=== PATIENT | female | born 1965 | race Caucasian/White ===

== ENCOUNTER 2022-02-11 13:22 | Inpatient (IN) | payer BC ==
[2022-02-11 13:40] LABS: Glucose,Whole Blood 49 mg/dL (75-99)
[2022-02-11] MEDS: DEXTROSE 50% SYRINGE 50 ML IVP STA ×2 (13:40→16:10)
[2022-02-11 14:18] LABS: Basophils % (A) 0 %; Eosinophils # (A) 0.1 k/uL (0-0.7); Eosinophils % (A) 1 %; HCT 41.3 % (34.0-46.0); HGB 11.8 gm/dL (11.4-16.0); Hypochromasia Marked; Lymphocytes # (A) 1.1 k/uL (1.0-4.8); Lymphocytes % (A) 10 %; MCH 28.7 pg (25.0-35.0); MCHC 28.5 g/dL (31.0-37.0); MCV 100.7 fL (80.0-100.0); Macrocytosis Slight; Mean Platelet Volume 7.6; Monocytes # (A) 0.6 k/uL (0-1.0); Monocytes % (A) 6 %; Neutrophils # (A) 8.8 k/uL (1.3-7.7); Neutrophils % (A) 83 %; Platelet Count 296 k/uL (150-450); RBC 4.11 m/uL (3.80-5.40); RDW 13.6 % (11.5-15.5); WBC 10.7 k/uL (3.8-10.6)
[2022-02-11 14:34] LABS: Albumin 3.9 g/dL (3.5-5.0); Calcium 8.8 mg/dL (8.4-10.2); Total Bilirubin 0.3 mg/dL (0.2-1.3); Total Protein 6.9 g/dL (6.3-8.2)
[2022-02-11 14:37] LABS: INR 0.9 (<1.2); Partial Thromboplastin Time 22.1 sec (22.0-30.0); Prothrombin Time 10.2 sec (9.0-12.0)
[2022-02-11 15:04] LABS: Potassium 6.4 mmol/L (3.5-5.1)
[2022-02-11 15:11] LABS: Glucose,Whole Blood 50 mg/dL (75-99)
[2022-02-11] MEDS ORDERED: NALOXONE 0.4 MG/ML 1 ML VIAL IV PRN (15:56)
--- NOTE | 2022-02-11 16:14 | CT ---
EXAMINATION TYPE: CT abdomen pelvis wo con DATE OF EXAM: 02/11/2022 COMPARISON: None available HISTORY: Acute kidney failure. CT DLP: 3223 mGycm Automated exposure control for dose reduction was used. TECHNIQUE: Helical acquisition of images was performed from the lung bases through the pelvis. FINDINGS: Artifactual images. LUNG BASES: Coronary arterial calcifications. LIVER/GB: Thick sludge versus calculi within the gallbladder. No definite hepatic focal lesion. PANCREAS: No significant abnormality is seen. SPLEEN: No significant abnormality is seen. ADRENALS: No significant abnormality is seen. KIDNEYS: Markedly atrophic left kidney. Heterogeneous area with central hypodensity seen at the poste rior aspect of the right kidney measuring 6 x 7 cm. Surrounding fat stranding and inflammatory change s. The lesion is incompletely characterized by this nonenhanced CT scan could represent an exophytic renal mass like renal cell carcinoma however associated infection or other abnormality like hemorrhag e or complicated cyst cannot be excluded. Recommend further enhanced CT or ultrasound assessment. 3 m m nonobstructing calculus at the lower pole of right kidney. FREE AIR: No free air is visualized RETROPERITONEAL ADENOPATHY: None visualized REPRODUCTIVE ORGANS: No gross uterine or adnexal mass. URINARY BLADDER: Collapsed over a Ventura catheter. PELVIC ADENOPATHY: No pathologically enlarged pelvic lymph nodes. OSSEOUS STRUCTURES: Destructive lytic lesion is seen involving the left ischial and iliac bones as w ell as the left acetabulum which could be primary or metastatic bone lesion. Degenerative changes of the lumbar spine and sacroiliac joints. BOWEL: No bowel obstruction. Fecal loading of the colon. Normal appendix. OTHER: Arterial atherosclerotic calcifications. No sizable ascites. IMPRESSION: Markedly atrophic left kidney. Suspicious lesion at the posterior aspect of the right kidney measurin g up to 7 mm with surrounding inflammatory changes, incompletely characterized by this unenhanced CT scan and could represent malignant lesion like RCC however other lesion or associated infection canno t be excluded. Recommend clinical correlation and further enhanced CT scan or ultrasound assessment. Urology consultation should be also considered. Left pelvic bone lytic destructive lesion as detailed above which could be a primary or metastatic aguilar ne lesion. Recommend correlation with bone scan results. Other incidental findings as described above .
[2022-02-11] MEDS: DEXTROSE 5% IN WATER 1,000 ML with SODIUM BICARB (1 MEQ/ML) 150 ML IV SCH (16:15)
[2022-02-11] MEDS ORDERED: CALCIUM GLUCONATE IN NACL 1 GM in SALINE 1 100ML.BAG IVPB ONE (16:17)
[2022-02-11] MEDS ORDERED: SODIUM BICARB 8.4% 50 ML SYR (1 MEQ/ML) IV STA (16:17)
[2022-02-11 16:19] LABS: Glucose,Whole Blood 32 mg/dL (75-99)
[2022-02-11] MEDS ORDERED: SODIUM CHLORIDE 0.9% INHALATION STA ×2 (16:19)
[2022-02-11] MEDS ORDERED: ALBUTEROL INHALATION STA ×2 (16:19)
[2022-02-11 16:30] LABS: Glucose,Whole Blood 95 mg/dL (75-99)
[2022-02-11 17:08] LABS: Glucose,Whole Blood 64 mg/dL (75-99)
[2022-02-11] MEDS ORDERED: LIDOCAINE 1% INJ 10MG/ML (30 ML VIAL-PF) SQ ONE (17:40)
--- NOTE | 2022-02-11 17:40 | ED ---
General Adult HPI - General Source: patient, EMS Mode of arrival: EMS <Leonela Fink - Last Filed: 02/11/22 18:54> <So Cruz - Last Filed: 02/12/22 23:24> - General Chief complaint: Recheck/Abnormal Lab/Rx Stated complaint: kidney failure Time Seen by Provider: 02/11/22 13:25 - History of Present Illness Initial comments: Patient is a 56-year-old female was transferred from [facility] for acute renal failure with and hyperkalemia. She was having hypoglycemia consequently she only received Calcium, albuterol and bicarbonate for her hyperkalemia. She was started on D5 4 5 at the facility as well. Her labs were n ot repeated prior to transfer. She does have good urine output. She denies any past medical history of any renal disease however she does have hypertension and diabetes in which she is on oral medications for and did take her medications today. She denies any known recent infections reports that normally she is up and ambulatory but she has had increased weakness recently and has been less mobile. She denies any recent infections, family history of renal disease, abdominal pain nausea or vomiting. (Leonela Fink) - Related Data Home Medications Medication Instructions Recorded Confirmed glipiZIDE [Glucotrol] 10 mg PO AC-BID 08/25/15 02/11/22 metFORMIN HCL [Glucophage] 1,000 mg PO BID 08/25/15 02/11/22 Cyclobenzaprine [Flexeril] 10 mg PO TID PRN 02/11/22 02/11/22 Diclofenac Sodium [Voltaren] 75 mg PO BID 02/11/22 02/11/22 Gabapentin 300 mg PO BID 02/11/22 02/11/22 HYDROcodone/APAP 5-325MG [[place] 1 tab PO Q6H PRN 02/11/22 02/11/22 5-325] Lisinopril-Hctz 10-12.5 mg 1 tab PO BID 02/11/22 02/11/22 [Zestoretic 10-12.5] Multivitamins, Thera [Multivitamin 1 tab PO DAILY 02/11/22 02/11/22 (formulary)] Pioglitazone [Actos] 30 mg PO DAILY 02/11/22 02/11/22 Spironolactone 50 mg PO DAILY 02/11/22 02/11/22 Previous Rx's Medication Instructions Recorded Aspirin 81 mg PO DAILY #30 chewable 08/27/15 Atorvastatin [Lipitor] 80 mg PO HS #30 tab 08/27/15 Allergies Allergy/AdvReac Type Severity Reaction Status Date / Time ibuprofen Allergy Rash/Hives Verified 02/11/22 14:47 Review of Systems ROS Other: All systems not noted in ROS Statement are negative. <Leonela Fink - Last Filed: 02/11/22 18:54> ROS Other: All systems not noted in ROS Statement are negative. <So Cruz - Last Filed: 02/12/22 23:24> ROS Statement: Those systems with pertinent positive or pertinent negative responses have been documented in the HPI. Past Medical History Past Medical History: Diabetes Mellitus, Hypertension History of Any Multi-Drug Resistant Organisms: None Reported Past Surgical History: Orthopedic Surgery Additional Past Surgical History / Comment(s): bone spur right heel surgery, right meniscus surgery Past Anesthesia/Blood Transfusion Reactions: No Reported Reaction Past Psychological History: No Psychological Hx Reported Smoking Status: Former smoker Past Alcohol Use History: None Reported Past Drug Use History: None Reported - Past Family History Mother Family Medical History: Hypertension Father Additional Family Medical History / Comment(s): no history reported, in car accident <Leonela Fink - Last Filed: 02/11/22 18:54> General Exam General appearance: alert, obese, other (drowsy at times) Head exam: Present: atraumatic, normocephalic, normal inspection Eye exam: Present: normal appearance, PERRL, EOMI. Absent: scleral icterus, conjunctival injection, periorbital swelling ENT exam: Present: normal exam, mucous membranes moist Neck exam: Present: normal inspection. Absent: tenderness, meningismus, lymphadenopathy Respiratory exam: Present: normal lung sounds bilaterally. Absent: respiratory distress, wheezes, rales, rhonchi, stridor Cardiovascular Exam: Present: regular rate, normal rhythm, normal heart sounds. Absent: systolic murmur, diastolic murmur, rubs, gallop, clicks GI/Abdominal exam: Present: soft, normal bowel sounds. Absent: distended, tenderness, guarding, rebound, rigid External exam: Present: other (Ventura catheter intact with clear yellow urine a dequate output noted) Extremities exam: Absent: pedal edema, joint swelling Neurological exam: Present: alert, oriented X3, CN II-XII intact Psychiatric exam: Present: normal affect, normal mood Skin exam: Present: other (Excoriation noted under pannus) <Leonela Fink - Last Filed: 02/11/22 18:54> Course Vital Signs 02/11/22 02/11/22 02/11/22 13:23 15:08 16:16 Temperature 97.9 F Pulse Rate 105 H 101 H 88 Respiratory 18 18 18 Rate Blood Pressure 154/65 131/67 126/67 Blood Pressure [Left Arm] O2 Sat by Pulse 98 95 Oximetry 02/11/22 02/11/22 02/11/22 16:30 16:32 16:42 Temperature Pulse Rate 98 99 100 Respiratory 18 10 L Rate Blood Pressure 127/60 Blood Pressure [Left Arm] O2 Sat by Pulse 100 Oximetry 02/11/22 02/11/22 02/11/22 16:44 17:00 17:30 Temperature Pulse Rate 101 H 102 H Respiratory 18 18 Rate Blood Pressure 104/86 104/86 145/67 Blood Pressure [Left Arm] O2 Sat by Pulse 99 98 Oximetry 02/11/22 02/11/22 02/11/22 18:17 18:44 19:00 Temperature 97.7 F Pulse Rate 106 H Respiratory 18 56 H 59 H Rate Blood Pressure 137/47 137/75 Blood Pressure 137/47 [Left Arm] O2 Sat by Pulse 96 99 Oximetry 02/11/22 02/11/22 19:30 20:00 Temperature 97.7 F Pulse Rate 100 101 H Respiratory 16 14 Rate Blood Pressure 151/72 147/65 Blood Pressure [Left Arm] O2 Sat by Pulse 94 L 95 Oximetry Procedures - [place] Protocol (Time Out) Patient Identification (2 identifiers required): Chart, Verbal, Arm Band, Birthdate 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 Attending Dr. Moreira along with nephology; nephrology to dialyze pateint. Dr. Escobar ICU shift supervisor rn advised of plan for admission to ICU with urgent catheter insertion by Dr. Toro for dialysis due to persistent hyperkalemia and uremia. Hypoglycemia recurrent with dextrose 50 given every 30 minutes as needed for blood sugars less than 50. EKG reviewed without significant ST anomalies. Unclear etiology of acute renal failure as notes nonalcohol. Due to body habitus computed tomography scan of the abdomen and pelvis ordered for evaluation of kidneys. (Leonela Fink) I spoke with Dr. Wu who accepted the patient into the ICU (So Cruz) - Lab Data Lab Results 02/11/22 02/11/22 02/11/22 Range/Units 13:28 13:48 13:48 WBC 10.7 H (3.8-10.6) k/uL RBC 4.11 (3.80-5.40) m/uL Hgb 11.8 (11.4-16.0) gm/dL Hct 41.3 (34.0-46.0) % MCV 100.7 H (80.0-100.0) fL MCH 28.7 (25.0-35.0) pg MCHC 28.5 L (31.0-37.0) g/dL RDW 13.6 (11.5-15.5) % Plt Count 296 (150-450) k/uL MPV 7.6 Neutrophils % 83 % Lymphocytes % 10 % Monocytes % 6 % Eosinophils % 1 % Basophils % 0 % Neutrophils # 8.8 H (1.3-7.7) k/uL Lymphocytes # 1.1 (1.0-4.8) k/uL Monocytes # 0.6 (0-1.0) k/uL Eosinophils # 0.1 (0-0.7) k/uL Basophils # 0.0 (0-0.2) k/uL Hypochromasia Marked Macrocytosis Slight PT 10.2 (9.0-12.0) sec INR 0.9 (<1.2) APTT 22.1 (22.0-30.0) sec Sodium (137-145) mmol/L Potassium (3.5-5.1) mmol/L Chloride (98-107) mmol/L Carbon Dioxide (22-30) mmol/L Anion Gap mmol/L BUN (7-17) mg/dL Creatinine (0.52-1.04) mg/dL Est GFR (CKD-EPI)AfAm (>60 ml/min/1.73 sqM) Est GFR (CKD-EPI)NonAf (>60 ml/min/1.73 sqM) Glucose (74-99) mg/dL POC Glucose (mg/dL) 49 L (75-99) mg/dL POC Glu Wiping Cloth Cutter ID BernardoEdmund Lactic Ac Sepsis Rflx Plasma Lactic Acid Saad (0.7-2.0) mmol/L Calcium (8.4-10.2) mg/dL Total Bilirubin (0.2-1.3) mg/dL AST (14-36) U/L ALT (4-34) U/L Alkaline Phosphatase (38-126) U/L Troponin I (0.000-0.034) ng/mL Total Protein (6.3-8.2) g/dL Albumin (3.5-5.0) g/dL 02/11/22 02/11/22 02/11/22 Range/Units 13:48 13:48 13:48 WBC (3.8-10.6) k/uL RBC (3.80-5.40) m/uL Hgb (11.4-16.0) gm/dL Hct (34.0-46.0) % MCV (80.0-100.0) fL MCH (25.0-35.0) pg MCHC (31.0-37.0) g/dL RDW (11.5-15.5) % Plt Count (150-450) k/uL MPV Neutrophils % % Lymphocytes % % Monocytes % % Eosinophils % % Basophils % % Neutrophils # (1.3-7.7) k/uL Lymphocytes # (1.0-4.8) k/uL Monocytes # (0-1.0) k/uL Eosinophils # (0-0.7) k/uL Basophils # (0-0.2) k/uL Hypochromasia Macrocytosis PT (9.0-12.0) sec INR (<1.2) APTT (22.0-30.0) sec Sodium 139 (137-145) mmol/L Potassium 6.4 H* (3.5-5.1) mmol/L Chloride 103 (98-107) mmol/L Carbon Dioxide 13 L (22-30) mmol/L Anion Gap 23 mmol/L BUN 93 H (7-17) mg/dL Creatinine 9.29 H* (0.52-1.04) mg/dL Est GFR (CKD-EPI)AfAm 5 (>60 ml/min/1.73 sqM) Est GFR (CKD-EPI)NonAf 4 (>60 ml/min/1.73 sqM) Glucose 42 L* (74-99) mg/dL POC Glucose (mg/dL) (75-99) mg/dL POC Glu Wiping Cloth Cutter ID Lactic Ac Sepsis Rflx Plasma Lactic Acid Saad 6.5 H* (0.7-2.0) mmol/L Calcium 8.8 (8.4-10.2) mg/dL Total Bilirubin 0.3 (0.2-1.3) mg/dL AST 48 H (14-36) U/L ALT 29 (4-34) U/L Alkaline Phosphatase 103 (38-126) U/L Troponin I 1.900 H* (0.000-0.034) ng/mL Total Protein 6.9 (6.3-8.2) g/dL Albumin 3.9 (3.5-5.0) g/dL 02/11/22 02/11/22 02/11/22 Range/Units 15:07 15:09 16:09 WBC (3.8-10.6) k/uL RBC (3.80-5.40) m/uL Hgb (11.4-16.0) gm/dL Hct (34.0-46.0) % MCV (80.0-100.0) fL MCH (25.0-35.0) pg MCHC (31.0-37.0) g/dL RDW (11.5-15.5) % Plt Count (150-450) k/uL MPV Neutrophils % % Lymphocytes % % Monocytes % % Eosinophils % % Basophils % % Neutrophils # (1.3-7.7) k/uL Lymphocytes # (1.0-4.8) k/uL Monocytes # (0-1.0) k/uL Eosinophils # (0-0.7) k/uL Basophils # (0-0.2) k/uL Hypochromasia Macrocytosis PT (9.0-12.0) sec INR (<1.2) APTT (22.0-30.0) sec Sodium (137-145) mmol/L Potassium (3.5-5.1) mmol/L Chloride (98-107) mmol/L Carbon Dioxide (22-30) mmol/L Anion Gap mmol/L BUN (7-17) mg/dL Creatinine (0.52-1.04) mg/dL Est GFR (CKD-EPI)AfAm (>60 ml/min/1.73 sqM) Est GFR (CKD-EPI)NonAf (>60 ml/min/1.73 sqM) Glucose (74-99) mg/dL POC Glucose (mg/dL) 50 L 32 L (75-99) mg/dL POC Glu Wiping Cloth Cutter [place] Ludwig Jackelyn Lactic Ac Sepsis Rflx Y Plasma Lactic Acid Saad (0.7-2.0) mmol/L Calcium (8.4-10.2) mg/dL Total Bilirubin (0.2-1.3) mg/dL AST (14-36) U/L ALT (4-34) U/L Alkaline Phosphatase (38-126) U/L Troponin I (0.000-0.034) ng/mL Total Protein (6.3-8.2) g/dL Albumin (3.5-5.0) g/dL - EKG Data EKG Comments: EKG shows sinus tachycardia possible right ventricular hypertrophy possible anterior infarct likely old ventricular rate 103 WA interval 136 ms QRS duration 121 ms QT/QTC 352/412 ms (Leonela Fink) Critical Care Time Critical Care Time: Yes <So Cruz - Last Filed: 02/12/22 23:24> Critical Care Time: 45 minutes (So Cruz) Disposition Time of Disposition: 18:59 <Leonela Fink - Last Filed: 02/11/22 18:54> <So Cruz - Last Filed: 02/12/22 23:24> Clinical Impression: Acute renal failure Disposition: ADMITTED IP TO THIS HOSP Condition: Serious
--- NOTE | 2022-02-11 18:04 | P.PCN ---
Description of Procedure: Preoperative diagnoses is acute chronic renal failure potassium of 6.4 urinary week 9.29 Postop same Ultrasound-guided today same dialysis catheter placement right femoral for the ultrasound-guided present but to the Spa [employer] right groin were prepped and draped applied in standard manner 1% lidocaine were infiltrated groin area ul trasound-guided micropuncture and the right femoral vein micropuncture guidewire was passed and dilator advanced on the top of guidewire in place a regular guidewire then replaced dilator on the top of guidewire then we placed 20 same dialysis catheter catheter on the top of guidewire guidewire was removed flushed with heparin saline and Hep-Lock secured with 3-0 nylon dressing applied systolic procedure well
--- NOTE | 2022-02-11 18:08 | P.GSCN ---
History of Present Illness History of present illness: 56-year-old white female patient came from we have discussed hospital she was hypoglycemic was given: IV and debridement is 93 treated in 19.29 potassium 6.4 sodium 139 was consulted for placement of urgent dialysis catheter Medical history history of diabetes superobesity Neck is supple no bruit appreciated Chest is clear good and both lungs Abdomen protuberant no peritoneal sign Femorals 1+ Plan is placement of a dialysis catheter risk and complication discussed Past Medical History Past Medical History: Diabetes Mellitus, Hypertension History of Any Multi-Drug Resistant Organisms: None Reported Past Surgical History: Orthopedic Surgery Additional Past Surgical History / Comment(s): bone spur right heel surgery, right meniscus surgery Past Anesthesia/Blood Transfusion Reactions: No Reported Reaction Past Psychological History: No Psychological Hx Reported Smoking Status: Former smoker Past Alcohol Use History: None Reported Past Drug Use History: None Reported - Past Family History Mother Family Medical History: Hypertension Father Additional Family Medical History / Comment(s): no history reported, in car accident Medications and Allergies Home Medications Medication Instructions Recorded Confirmed Type glipiZIDE [Glucotrol] 10 mg PO AC-BID 08/25/15 02/11/22 History metFORMIN HCL [Glucophage] 1,000 mg PO BID 08/25/15 02/11/22 History Aspirin 81 mg PO DAILY #30 chewable 08/27/15 02/11/22 Rx Atorvastatin [Lipitor] 80 mg PO HS #30 tab 08/27/15 02/11/22 Rx Cyclobenzaprine [Flexeril] 10 mg PO TID PRN 02/11/22 02/11/22 History Diclofenac Sodium [Voltaren] 75 mg PO BID 02/11/22 02/11/22 History Gabapentin 300 mg PO BID 02/11/22 02/11/22 History HYDROcodone/APAP 5-325MG [[place] 1 tab PO Q6H PRN 02/11/22 02/11/22 History 5-325] Lisinopril-Hctz 10-12.5 mg 1 tab PO BID 02/11/22 02/11/22 History [Zestoretic 10-12.5] Multivitamins, Thera [Multivitamin 1 tab PO DAILY 02/11/22 02/11/22 History (formulary)] Pioglitazone [Actos] 30 mg PO DAILY 02/11/22 02/11/22 History Spironolactone 50 mg PO DAILY 02/11/22 02/11/22 History Allergies Allergy/AdvReac Type Severity Reaction Status Date / Time ibuprofen Allergy Rash/Hives Verified 02/11/22 14:47 Surgical - Exam Vital Signs Temp Pulse Resp BP Pulse Ox 97.9 F 105 H 18 154/65 98 02/11/22 13:23 02/11/22 13:23 02/11/22 13:23 02/11/22 13:23 02/11/22 13:23 Results - Labs 02/11/22 13:48 02/11/22 13:48 Abnormal Lab Results - Last 24 Hours (Table) 02/11/22 02/11/22 02/11/22 Range/Units 13:28 13:48 13:48 WBC 10.7 H (3.8-10.6) k/uL MCV 100.7 H (80.0-100.0) fL MCHC 28.5 L (31.0-37.0) g/dL Neutrophils # 8.8 H (1.3-7.7) k/uL Potassium 6.4 H* (3.5-5.1) mmol/L Carbon Dioxide 13 L (22-30) mmol/L BUN 93 H (7-17) mg/dL Creatinine 9.29 H* (0.52-1.04) mg/dL Glucose 42 L* (74-99) mg/dL POC Glucose (mg/dL) 49 L (75-99) mg/dL Plasma Lactic Acid Saad (0.7-2.0) mmol/L AST 48 H (14-36) U/L Troponin I (0.000-0.034) ng/mL 02/11/22 02/11/22 02/11/22 Range/Units 13:48 13:48 15:07 WBC (3.8-10.6) k/uL MCV (80.0-100.0) fL MCHC (31.0-37.0) g/dL Neutrophils # (1.3-7.7) k/uL Potassium (3.5-5.1) mmol/L Carbon Dioxide (22-30) mmol/L BUN (7-17) mg/dL Creatinine (0.52-1.04) mg/dL Glucose (74-99) mg/dL POC Glucose (mg/dL) 50 L (75-99) mg/dL Plasma Lactic Acid Saad 6.5 H* (0.7-2.0) mmol/L AST (14-36) U/L Troponin I 1.900 H* (0.000-0.034) ng/mL 02/11/22 02/11/22 Range/Units 16:09 17:06 WBC (3.8-10.6) k/uL MCV (80.0-100.0) fL MCHC (31.0-37.0) g/dL Neutrophils # (1.3-7.7) k/uL Potassium (3.5-5.1) mmol/L Carbon Dioxide (22-30) mmol/L BUN (7-17) mg/dL Creatinine (0.52-1.04) mg/dL Glucose (74-99) mg/dL POC Glucose (mg/dL) 32 L 64 L (75-99) mg/dL Plasma Lactic Acid Saad (0.7-2.0) mmol/L AST (14-36) U/L Troponin I (0.000-0.034) ng/mL Diabetes panel 02/11/22 Range/Units 13:48 Sodium 139 (137-145) mmol/L Potassium 6.4 H* (3.5-5.1) mmol/L Chloride 103 (98-107) mmol/L Carbon Dioxide 13 L (22-30) mmol/L BUN 93 H (7-17) mg/dL Creatinine 9.29 H* (0.52-1.04) mg/dL Glucose 42 L* (74-99) mg/dL Calcium 8.8 (8.4-10.2) mg/dL AST 48 H (14-36) U/L ALT 29 (4-34) U/L Alkaline Phosphatase 103 (38-126) U/L Total Protein 6.9 (6.3-8.2) g/dL Albumin 3.9 (3.5-5.0) g/dL Calcium panel 02/11/22 Range/Units 13:48 Calcium 8.8 (8.4-10.2) mg/dL Albumin 3.9 (3.5-5.0) g/dL Pituitary panel 02/11/22 Range/Units 13:48 Sodium 139 (137-145) mmol/L Potassium 6.4 H* (3.5-5.1) mmol/L Chloride 103 (98-107) mmol/L Carbon Dioxide 13 L (22-30) mmol/L BUN 93 H (7-17) mg/dL Creatinine 9.29 H* (0.52-1.04) mg/dL Glucose 42 L* (74-99) mg/dL Calcium 8.8 (8.4-10.2) mg/dL Adrenal panel 02/11/22 Range/Units 13:48 Sodium 139 (137-145) mmol/L Potassium 6.4 H* (3.5-5.1) mmol/L Chloride 103 (98-107) mmol/L Carbon Dioxide 13 L (22-30) mmol/L BUN 93 H (7-17) mg/dL Creatinine 9.29 H* (0.52-1.04) mg/dL Glucose 42 L* (74-99) mg/dL Calcium 8.8 (8.4-10.2) mg/dL Total Bilirubin 0.3 (0.2-1.3) mg/dL AST 48 H (14-36) U/L ALT 29 (4-34) U/L Alkaline Phosphatase 103 (38-126) U/L Total Protein 6.9 (6.3-8.2) g/dL Albumin 3.9 (3.5-5.0) g/dL
[2022-02-11] MEDS ORDERED: MIDODRINE 5 MG TAB PO PRN (18:20)
[2022-02-11] MEDS ORDERED: DEXTROSE 50% SYRINGE 50 ML IVP ONE ×2 (18:31→21:17)
[2022-02-11 18:32] LABS: Glucose,Whole Blood 28 mg/dL (75-99)
[2022-02-11 18:32] LABS: Glucose,Whole Blood 31 mg/dL (75-99)
[2022-02-11 18:49] LABS: Glucose,Whole Blood 68 mg/dL (75-99)
[2022-02-11 19:02] LABS: Glucose,Whole Blood 76 mg/dL (75-99)
[2022-02-11 21:17] LABS: Glucose,Whole Blood 44 mg/dL (75-99)
[2022-02-11 21:42] LABS: Glucose,Whole Blood 78 mg/dL (75-99)
[2022-02-11 22:34] LABS: Glucose,Whole Blood 71 mg/dL (75-99)
[2022-02-11 23:06] LABS: Calcium 8.4 mg/dL (8.4-10.2); Potassium 5.2 mmol/L (3.5-5.1)
[2022-02-11 23:20] LABS: Hepatitis B Surface AB- Quant 3.5 mIU/mL; Hepatitis B Surface Antibody Nonreactive (Nonreactive)
[2022-02-11 23:42] LABS: Glucose,Whole Blood 81 mg/dL (75-99)
[2022-02-12 00:33] LABS: Hepatitis B Surface Antigen Nonreactive (Nonreactive)
[2022-02-12 00:59] LABS: Glucose,Whole Blood 53 mg/dL (75-99)
[2022-02-12] MEDS ORDERED: DEXTROSE 50% SYRINGE 50 ML IVP ONE ×2 (01:03→12:49)
[2022-02-12 01:26] LABS: Glucose,Whole Blood 58 mg/dL (75-99)
[2022-02-12 01:44] LABS: Glucose,Whole Blood 105 mg/dL (75-99)
[2022-02-12 02:27] LABS: Glucose,Whole Blood 111 mg/dL (75-99)
[2022-02-12] MEDS: DEXTROSE 5% IN WATER 1,000 ML with SODIUM BICARB (1 MEQ/ML) 150 ML IV SCH (02:30)
[2022-02-12 03:33] LABS: Glucose,Whole Blood 118 mg/dL (75-99)
[2022-02-12 05:38] LABS: Glucose,Whole Blood 110 mg/dL (75-99)
[2022-02-12 06:13] LABS: Basophils % (A) 0 %; Eosinophils # (A) 0.1 k/uL (0-0.7); Eosinophils % (A) 1 %; HCT 40.5 % (34.0-46.0); HGB 12.1 gm/dL (11.4-16.0); Lymphocytes # (A) 1.2 k/uL (1.0-4.8); Lymphocytes % (A) 15 %; MCH 28.9 pg (25.0-35.0); MCHC 29.8 g/dL (31.0-37.0); MCV 96.8 fL (80.0-100.0); Mean Platelet Volume 7.3; Monocytes # (A) 0.5 k/uL (0-1.0); Monocytes % (A) 6 %; Neutrophils # (A) 6.3 k/uL (1.3-7.7); Neutrophils % (A) 76 %; Platelet Count 295 k/uL (150-450); RBC 4.19 m/uL (3.80-5.40); RDW 13.7 % (11.5-15.5); WBC 8.2 k/uL (3.8-10.6)
[2022-02-12 06:54] LABS: Calcium 8.5 mg/dL (8.4-10.2); Potassium 5.7 mmol/L (3.5-5.1)
[2022-02-12] MEDS ORDERED: SODIUM CHLORIDE 0.9% 1,000 ML IV SCH (07:00)
[2022-02-12 07:05] LABS: Glucose,Whole Blood 86 mg/dL (75-99)
--- NOTE | 2022-02-12 07:35 | IR ---
EXAMINATION TYPE: IR cvc insert non tunneled DATE OF EXAM: 02/11/2022 COMPARISON: NONE HISTORY: Fluoroscopy time. Fluoroscopy was provided to the referring clinician.
--- NOTE | 2022-02-12 07:37 | XR ---
EXAMINATION TYPE: XR chest 1V portable DATE OF EXAM: 02/12/2022 COMPARISON: NONE HISTORY: Shortness of breath TECHNIQUE: Single frontal view of the chest is obtained. FINDINGS: There is no focal air space opacity, pleural effusion, or pneumothorax seen. The cardiac silhouette size is within normal limits. The osseous structures are intact. There is linear band of lucency along the right heart border which could be artifactual correlate clinically excluded pneumo mediastinum. Recommend repeat chest x-ray. Bilateral hilar prominence. IMPRESSION: 1. Linear band of lucency along the right heart border. Difficult to determine if this is artifactual related to pneumomediastinum. Recommend repeat x-ray. 2. Prominence of bilateral underlying adenopathy differential diagnosis.
[2022-02-12] MEDS: PANTOPRAZOLE 40 MG TABLET PO SCH (08:15)
[2022-02-12] MEDS ORDERED: HYDROcodone/APAP 5-325MG 1 EACH TAB PO PRN (09:25)
--- NOTE | 2022-02-12 09:27 | P.CNPUL ---
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 The patient is diabetic and she has hypertension. She has been maintained on a combination of Glucophage, Glucotrol, and Actos. The patient was feeling weak and she was having generalized fatigue and episodes of hypoglycemia. She was seen at the [facility] emergency department and she was found also to be in acute kidney injury. The creatinine was as high as 9.3 and the potassium was as high as 6.4. I even her that the potassium was even higher at [facility]. The patient was given calcium and bicarb and following that she was transferred to our hospital. Initial blood work here in our hospital showed a sodium of 139, potassium of 6.4, serum bicarbonate 13, BUN is 93 with a creatinine of 9.2, lactic acid level was 6.5 which dropped down to 4.1, her troponin was 1.9, and the CBC showed a white cell count of 10.7 with a hemoglobin 11.8 and platelet count of 296. She was still having episodes of hypoglycemia and she received a total of 3 doses of D50. She was started on IV fluids and currently she is on a normal saline at the rate of 100 mL an hour. Earlier to that she was on a bicarb infusion at the rate of 125 mL an hour. Her serum bicarbonate improve this morning is up to 26. She was given further potassium treatment yesterday and she underwent dialysis after inserting a temporary dialysis catheter in her right groin. She received a hemodialysis session yesterday. She receive no ultrafiltration.. She is currently on room air oxygen. She does have chronic lower extremity edema. She is hemodynamically stable. Ventura catheter is in place and the patient is producing excellent amount of urine output. The repeat creatinine today is down to 7.12. Repeat potassium level is down to 5.7. No nausea. No vomiting. No emesis. No further episodes of hypoglycemia. She is tolerating oral diet. CAT scan of the abdomen and pelvis was done. The patient has an atrophic left kidney. Right kidney showed a 7 mm lesion which also raised the suspicion for an underlying RCC. A contrast enhanced CAT scan will be needed later stage. There is also 3 mm nonobstructive calculus in the lower pole of the right kidney. No 70 coronary artery disease. No history of any chest pain. EKG showing a normal sinus rhythm. No acute ST segment changes. The patient is fully vaccinated for COVID 19 Review of Systems Constitutional: Reports fatigue, Reports weakness Eyes: denies as per HPI, denies blurred vision, denies bulging eye, denies decreased vision, denies diplopia, denies discharge, denies dry eye, denies irritation, denies itching, denies pain, denies photophobia, denies loss of peripheral vision, denies loss of vision, denies tunnel vision/blind spots Ears: deny: decreased hearing, ear discharge, earache, tinnitus Ears, nose, mouth and throat: Reports as per HPI Breasts: absent: as per HPI, change in shape, gynecomastia, masses, nipple discharge, pain, skin changes, swelling Cardiovascular: Reports decreased exercise tolerance, Reports dyspnea on exertion Respiratory: Reports dyspnea, Reports sleep apnea, Reports snoring Gastrointestinal: Reports as per HPI Genitourinary: Reports as per HPI Menstruation: Reports as per HPI Musculoskeletal: Reports as per HPI Musculoskeletal: bilateral: ankle swelling, absent: ankle pain Integumentary: Reports as per HPI Neurological: Reports as per HPI, Reports weakness Psychiatric: Reports as per HPI Endocrine: Reports as per HPI Hematologic/Lymphatic: Reports as per HPI Allergic/Immunologic: Reports as per HPI Past Medical History Past Medical History: Diabetes Mellitus, Hypertension History of Any Multi-Drug Resistant Organisms: None Reported Past Surgical History: Orthopedic Surgery Additional Past Surgical History / Comment(s): bone spur right heel surgery, right meniscus surgery Past Anesthesia/Blood Transfusion Reactions: No Reported Reaction Past Psychological History: No Psychological Hx Reported Smoking Status: Former smoker Past Alcohol Use History: None Reported Past Drug Use History: None Reported - Past Family History Sister(s) Family Medical History: Diabetes Mellitus Additional Family Medical History / Comment(s): Both sisters have Type II diabetetes Mother Family Medical History: Hypertension Additional Family Medical History / Comment(s): Currently in remission from breast cancer Father Additional Family Medical History / Comment(s): no history reported, in car accident Medications and Allergies Home Medications Medication Instructions Recorded Confirmed Type glipiZIDE [Glucotrol] 10 mg PO AC-BID 08/25/15 02/11/22 History metFORMIN HCL [Glucophage] 1,000 mg PO BID 08/25/15 02/11/22 History Aspirin 81 mg PO DAILY #30 chewable 08/27/15 02/11/22 Rx Atorvastatin [Lipitor] 80 mg PO HS #30 tab 08/27/15 02/11/22 Rx Cyclobenzaprine [Flexeril] 10 mg PO TID PRN 02/11/22 02/11/22 History Diclofenac Sodium [Voltaren] 75 mg PO BID 02/11/22 02/11/22 History Gabapentin 300 mg PO BID 02/11/22 02/11/22 History HYDROcodone/APAP 5-325MG [[place] 1 tab PO Q6H PRN 02/11/22 02/11/22 History 5-325] Lisinopril-Hctz 10-12.5 mg 1 tab PO BID 02/11/22 02/11/22 History [Zestoretic 10-12.5] Multivitamins, Thera [Multivitamin 1 tab PO DAILY 02/11/22 02/11/22 History (formulary)] Pioglitazone [Actos] 30 mg PO DAILY 02/11/22 02/11/22 History Spironolactone 50 mg PO DAILY 02/11/22 02/11/22 History Allergies Allergy/AdvReac Type Severity Reaction Status Date / Time ibuprofen Allergy Rash/Hives Verified 02/11/22 14:47 Physical Exam Vitals: Vital Signs Temp Pulse Resp BP BP Pulse Ox 02/12/22 07:00 98 12 117/65 96 02/12/22 06:30 101 H 12 113/74 97 02/12/22 06:00 105 H 16 95/69 94 L 02/12/22 05:30 105 H 16 108/56 92 L 02/12/22 05:00 105 H 18 119/62 93 L 02/12/22 04:30 106 H 20 121/64 97 02/12/22 04:00 98.1 F 98 14 115/63 96 02/12/22 03:30 103 H 12 92/69 96 02/12/22 03:00 99 14 91/73 95 02/12/22 02:30 100 16 91/73 96 02/12/22 02:00 105 H 16 107/40 85 L 02/12/22 01:30 105 H 16 147/80 97 02/12/22 01:00 102 H 16 144/71 97 02/12/22 00:30 100 22 122/84 98 02/12/22 00:25 103 H 13 122/84 98 02/12/22 00:00 97.8 F 105 H 16 122/60 96 02/11/22 23:30 101 H 12 124/71 91 L 02/11/22 23:00 102 H 14 127/68 97 02/11/22 22:30 104 H 14 146/70 96 02/11/22 22:00 105 H 16 110/81 98 02/11/22 21:30 104 H 16 131/103 97 02/11/22 21:00 100 14 139/68 96 02/11/22 20:30 102 H 16 139/68 96 02/11/22 20:09 146/66 02/11/22 20:00 97.7 F 101 H 14 147/65 95 02/11/22 19:30 100 16 151/72 94 L 02/11/22 19:00 59 H 137/75 99 02/11/22 18:44 106 H 56 H 137/47 96 02/11/22 18:17 97.7 F 18 137/47 02/11/22 17:30 145/67 02/11/22 17:00 102 H 18 104/86 98 02/11/22 16:44 101 H 18 104/86 99 02/11/22 16:42 100 02/11/22 16:32 99 10 L 02/11/22 16:30 98 18 127/60 100 02/11/22 16:16 88 18 126/67 02/11/22 15:08 101 H 18 131/67 95 02/11/22 13:23 97.9 F 105 H 18 154/65 98 Intake and Output 02/11/22 02/12/22 02/12/22 22:59 06:59 14:59 Intake Total 735 1000 125 Output Total 3125 2400 150 Balance -2390 -1400 -25 Intake: Intake, IV Titration 375 1000 125 Amount Dextrose 5% in Water 1, 375 1000 125 000 ml @ 125 mls/hr IV . Q9H12M CAT with Sodium Bicarb (1 Meq/ml) 150 ml Rx#:[id number] Oral 360 Output: Urine 3125 2400 150 Hemodialysis 0 Other: Voiding Method Indwelling Catheter Indwelling Catheter Weight 131.542 kg General appearance: alert, obese, other (drowsy at times), body mass index is 51.4 and the patient is awake and alert and breathing is nonlabored patient sitting up on a chair and she is coughing comfortable. Head exam: Present: atraumatic, normocephalic, normal inspection Eye exam: Present: normal appearance, PERRL, EOMI. Absent: scleral icterus, conjunctival injection, periorbital swelling ENT exam: Present: normal exam, mucous membranes moist Neck exam: Present: normal inspection. Absent: tenderness, meningismus, lymphadenopathy Respiratory exam: Present: normal lung sounds bilaterally. Absent: respiratory distress, wheezes, rales, rhonchi, stridor Cardiovascular Exam: Present: regular rate, normal rhythm, normal heart sounds. Absent: systolic murmur, diastolic murmur, rubs, gallop, clicks GI/Abdominal exam: Present: soft, normal bowel sounds. Absent: distended, tenderness, guarding, rebound, rigid External exam: Present: other (Ventura catheter intact with clear yellow urine adequate output noted) Extremities exam: Absent: pedal edema, joint swelling Neurological exam: Present: alert, oriented X3, CN II-XII intact Psychiatric exam: Present: normal affect, normal mood Skin exam: Present: other (Excoriation noted under pannus) Results - Laboratory Findings CBC and BMP: 02/12/22 05:51 02/12/22 05:51 PT/INR, D-dimer PT 10.2 sec (9.0-12.0) 02/11/22 13:48 INR 0.9 (<1.2) 02/11/22 13:48 Abnormal lab findings: Abnormal Labs 02/11/22 02/11/22 02/11/22 13:28 13:48 13:48 WBC 10.7 H MCV 100.7 H MCHC 28.5 L Neutrophils # 8.8 H Sodium Potassium 6.4 H* Chloride Carbon Dioxide 13 L BUN 93 H Creatinine 9.29 H* Glucose 42 L* POC Glucose (mg/dL) 49 L Plasma Lactic Acid Saad AST 48 H Troponin I 02/11/22 02/11/22 02/11/22 13:48 13:48 15:07 WBC MCV MCHC Neutrophils # Sodium Potassium Chloride Carbon Dioxide BUN Creatinine Glucose POC Glucose (mg/dL) 50 L Plasma Lactic Acid Saad 6.5 H* AST Troponin I 1.900 H* 02/11/22 02/11/22 02/11/22 16:09 17:06 18:29 WBC MCV MCHC Neutrophils # Sodium Potassium Chloride Carbon Dioxide BUN Creatinine Glucose POC Glucose (mg/dL) 32 L 64 L 28 L Plasma Lactic Acid Saad AST Troponin I 02/11/22 02/11/22 02/11/22 18:30 18:47 19:07 WBC MCV MCHC Neutrophils # Sodium Potassium Chloride Carbon Dioxide BUN Creatinine Glucose POC Glucose (mg/dL) 31 L 68 L Plasma Lactic Acid Saad 3.6 H* AST Troponin I 02/11/22 02/11/22 02/11/22 21:15 22:32 22:33 WBC MCV MCHC Neutrophils # Sodium 136 L Potassium 5.2 H Chloride Carbon Dioxide BUN 72 H Creatinine 7.14 H* Glucose 114 H POC Glucose (mg/dL) 44 L 71 L Plasma Lactic Acid Saad AST Troponin I 02/11/22 02/12/22 02/12/22 22:33 00:58 01:24 WBC MCV MCHC Neutrophils # Sodium Potassium Chloride Carbon Dioxide BUN Creatinine Glucose POC Glucose (mg/dL) 53 L 58 L Plasma Lactic Acid Saad 4.5 H* AST Troponin I 02/12/22 02/12/22 02/12/22 01:42 02:26 03:32 WBC MCV MCHC Neutrophils # Sodium Potassium Chloride Carbon Dioxide BUN Creatinine Glucose POC Glucose (mg/dL) 105 H 111 H 118 H Plasma Lactic Acid Saad AST Troponin I 02/12/22 02/12/22 02/12/22 05:35 05:51 05:51 WBC MCV MCHC 29.8 L Neutrophils # Sodium Potassium 5.7 H Chloride 97 L Carbon Dioxide BUN 74 H Creatinine 7.12 H* Glucose POC Glucose (mg/dL) 110 H Plasma Lactic Acid Saad AST Troponin I 02/12/22 05:51 WBC MCV MCHC Neutrophils # Sodium Potassium Chloride Carbon Dioxide BUN Creatinine Glucose POC Glucose (mg/dL) Plasma Lactic Acid Saad 4.1 H* AST Troponin I - Diagnostic Findings Chest x-ray: image reviewed Assessment and Plan Plan: Acute kidney injury. The patient presented with acute kidney injury, hypoglycemia and hyperkalemia with metabolic acidosis. The patient underwent tr eatment for your hyperkalemia. The patient got transferred from an outside hospital and the patient had a temporary dialysis catheter insertion and she performed a session of hemodialysis yesterday. She is currently hemodynamically stable and function is improving and the patient is producing excellent amount of urine output. Baseline creatinine is not known. Noted the patient was taken a combination of shara inhibitors in the form of Zestoretic and she was also taking Aldactone outpatient basis. This could be a prerenal event with subsequent ATN. No intake of any nonsteroidal anti-inflammatory medications. Episodic hypoglycemia, likely drug-induced Non-anion gap metabolic acidosis Acute hyperkalemia Atrophic left kidney with a 7 mm right kidney lesion that needs to be further worked up for possibility of RCC at a later stage Acute elevation of troponin, could be a type II cardiac ischemia, no acute ischemic changes on EKG.. Obesity with a BMI 51.4 Diabetes mellitus maintained on a combination of oral hypoglycemics including Actos, metformin and glipizide Hypertension Hyperlipidemia degenerative arthritis Plan IV fluids with normal saline at the rate of 100 mL an hour UA Monitor electrolytes and renal function and potassium levels Nephrology consultation Temporary dialysis catheter inserted and the patient received a session of hemodialysis yesterday Stop the oral hypoglycemics and put the patient on sliding scale coverage Advance diet as tolerated Heparin subcu for DVT prophylaxis 5000 units every 8 hours Monitor the troponins Obtain echocardiogram We'll continue to follow. She may transfer out of the intensive care unit at a later stage once she is seen by nephrology and cardiology.
[2022-02-12 10:23] LABS: Appearance,Urine Clear (Clear); Bacteria,Urine Rare /hpf; Bilirubin,Urine Negative (Negative); Blood,Urine Large (Negative); Color,Urine Light Yellow; Glucose,Urine (UA) Negative (Negative); Ketones,Urine Negative (Negative); Leukocyte Esterase,Urine Moderate (Negative); Mucus,Urine Rare /hpf; Nitrite,Urine Negative (Negative); Protein,Urine 1+ (Negative); RBC,Urine 86 /hpf (0-5); Specific Gravity,Urine 1.008 (1.001-1.035); Squamous Epithelial Cell,Urine <1 /hpf (0-4); Urobilinogen,Urine <2.0 mg/dL (<2.0); WBC,Urine 14 /hpf (0-5)
--- NOTE | 2022-02-12 10:36 | P.NPCON ---
History of Present Illness - Reason for Consult acute renal failure - History of Present Illness Reason for consultation: Acute kidney injury and hyperkalemia History of present illness: Patient is a 56-year-old female seen in renal consultation for acute kidney injury and hyperkalemia. Patient states she woke up yesterday morning to go to work but didn't feel well. Her blood sugar was in the 30s and her sister noticed that her mentation was also not at baseline. Subsequently EMS was called to take her to the hospital. She initially went to [facility] and was noted to have a potassium of over 7 and creatinine near 10. She was subsequently transferred to this facility for emergent hemodialysis. She completed hemodialysis yesterday. Potassium this morning is 5.7. Patient is nonoliguric with urine output the range of 150-200 mL an hour. Patient does a history of diabetes. She was taking spironolactone as well as lisinopril at home which are both currently held. Patient was noted to be severely acidotic and was maintained on bicarb drip. This morning her acidosis is resolved and she is now on normal saline. She denies use of nonsteroidals. However she was taking Voltaren. She denies fever or chills. Blood pressure is well controlled. She is not on any vasopressors. She denies any personal or family history of kidney disease. Vital signs are stable. General: Awake and alert. No acute distress. HEENT: Head exam is unremarkable. On nasal cannula. LUNGS: Breath sounds decreased. HEART: Rate and Rhythm are regular. ABDOMEN: Soft, obese. EXTREMITITES: Trace edema. Past Medical History Past Medical History: Diabetes Mellitus, Hypertension History of Any Multi-Drug Resistant Organisms: None Reported Past Surgical History: Orthopedic Surgery Additional Past Surgical History / Comment(s): bone spur right heel surgery, right meniscus surgery Past Anesthesia/Blood Transfusion Reactions: No Reported Reaction Past Psychological History: No Psychological Hx Reported Smoking Status: Former smoker Past Alcohol Use History: None Reported Past Drug Use History: None Reported - Past Family History Sister(s) Family Medical History: Diabetes Mellitus Additional Family Medical History / Comment(s): Both sisters have Type II diabetetes Mother Family Medical History: Hypertension Additional Family Medical History / Comment(s): Currently in remission from breast cancer Father Additional Family Medical History / Comment(s): no history reported, in car accident Medications and Allergies Home Medications Medication Instructions Recorded Confirmed Type glipiZIDE [Glucotrol] 10 mg PO AC-BID 08/25/15 02/11/22 History metFORMIN HCL [Glucophage] 1,000 mg PO BID 08/25/15 02/11/22 History Aspirin 81 mg PO DAILY #30 chewable 08/27/15 02/11/22 Rx Atorvastatin [Lipitor] 80 mg PO HS #30 tab 08/27/15 02/11/22 Rx Cyclobenzaprine [Flexeril] 10 mg PO TID PRN 02/11/22 02/11/22 History Diclofenac Sodium [Voltaren] 75 mg PO BID 02/11/22 02/11/22 History Gabapentin 300 mg PO BID 02/11/22 02/11/22 History HYDROcodone/APAP 5-325MG [[place] 1 tab PO Q6H PRN 02/11/22 02/11/22 History 5-325] Lisinopril-Hctz 10-12.5 mg 1 tab PO BID 02/11/22 02/11/22 History [Zestoretic 10-12.5] Multivitamins, Thera [Multivitamin 1 tab PO DAILY 02/11/22 02/11/22 History (formulary)] Pioglitazone [Actos] 30 mg PO DAILY 02/11/22 02/11/22 History Spironolactone 50 mg PO DAILY 02/11/22 02/11/22 History Allergies Allergy/AdvReac Type Severity Reaction Status Date / Time ibuprofen Allergy Rash/Hives Verified 02/11/22 14:47 Physical Exam Vitals: Vital Signs Temp Pulse Resp BP BP Pulse Ox 02/12/22 09:00 126/71 02/12/22 08:30 98.2 F 97 10 L 125/79 95 02/12/22 08:00 104 H 17 122/69 96 02/12/22 07:30 102 H 11 L 117/67 97 02/12/22 07:00 98 12 117/65 96 02/12/22 06:30 101 H 12 113/74 97 02/12/22 06:00 105 H 16 95/69 94 L 02/12/22 05:30 105 H 16 108/56 92 L 02/12/22 05:00 105 H 18 119/62 93 L 02/12/22 04:30 106 H 20 121/64 97 02/12/22 04:00 98.1 F 98 14 115/63 96 02/12/22 03:30 103 H 12 92/69 96 02/12/22 03:00 99 14 91/73 95 02/12/22 02:30 100 16 91/73 96 02/12/22 02:00 105 H 16 107/40 85 L 02/12/22 01:30 105 H 16 147/80 97 02/12/22 01:00 102 H 16 144/71 97 02/12/22 00:30 100 22 122/84 98 02/12/22 00:25 103 H 13 122/84 98 02/12/22 00:00 97.8 F 105 H 16 122/60 96 02/11/22 23:30 101 H 12 124/71 91 L 02/11/22 23:00 102 H 14 127/68 97 02/11/22 22:30 104 H 14 146/70 96 02/11/22 22:00 105 H 16 110/81 98 02/11/22 21:30 104 H 16 131/103 97 02/11/22 21:00 100 14 139/68 96 02/11/22 20:30 102 H 16 139/68 96 02/11/22 20:09 146/66 02/11/22 20:00 97.7 F 101 H 14 147/65 95 02/11/22 19:30 100 16 151/72 94 L 02/11/22 19:00 59 H 137/75 99 02/11/22 18:44 106 H 56 H 137/47 96 02/11/22 18:17 97.7 F 18 137/47 02/11/22 17:30 145/67 02/11/22 17:00 102 H 18 104/86 98 02/11/22 16:44 101 H 18 104/86 99 02/11/22 16:42 100 02/11/22 16:32 99 10 L 02/11/22 16:30 98 18 127/60 100 02/11/22 16:16 88 18 126/67 02/11/22 15:08 101 H 18 131/67 95 02/11/22 13:23 97.9 F 105 H 18 154/65 98 Intake and Output 02/11/22 02/12/22 02/12/22 22:59 06:59 14:59 Intake Total 735 1000 445 Output Total 3125 2400 475 Balance -2390 -1400 -30 Intake: Intake, IV Titration 375 1000 325 Amount Dextrose 5% in Water 1, 375 1000 125 000 ml @ 125 mls/hr IV . Q9H12M CAT with Sodium Bicarb (1 Meq/ml) 150 ml Rx#:[id number] Sodium Chloride 0.9% 1, 200 000 ml @ 100 mls/hr IV . Q10H CAT Rx#:[id number] Oral 360 120 Output: Urine 3125 2400 475 Hemodialysis 0 Other: Voiding Method Indwelling Catheter Indwelling Catheter Weight 131.542 kg 131.542 kg Results - Lab Results Most recent lab results Calcium 8.5 mg/dL (8.4-10.2) 02/12/22 05:51 02/12/22 05:51 02/12/22 05:51 Assessment and Plan Plan: Assessment: 1. Acute kidney injury secondary to ATN secondary to hypotension and nonsteroidals further worsened with the use of DORIS inhibitor and diuretics. Creatinine 9.9 on admission and is 7.12 today. She underwent emergent hemodialysis 02/21/2022. Nonoliguric. No hydronephrosis noted on CAT scan. 2. Hyperkalemia secondary to acute kidney injury, NSAIDs, metabolic acidosis, spironolactone and lisinopril. Improved postdialysis. 3. Metabolic acidosis secondary to acute kidney injury, lactic acidosis and use of metformin. 4. Diabetes mellitus. 5. Benign hypertension. Currently controlled. 6. Right kidney lesion. Mass versus inflammation. 7. Atrophic left kidney. Plan: Maintain normal saline. Check blood and urine culture. Hemodialysis today. Plan to hold tomorrow. Continue to assess on a daily basis. Consult urology for the kidney lesion. Avoid nephrotoxins. Continue to monitor renal function and urine output. Quantify proteinuria. Continue to hold diuretics as well as lisinopril for now. Thank you for the consultation. I will continue to follow the patient daily during her hospital stay.
[2022-02-12 10:52] LABS: Basophils % (A) 1 %; Eosinophils # (A) 0.1 k/uL (0-0.7); Eosinophils % (A) 1 %; HCT 42.8 % (34.0-46.0); Hypochromasia Slight; Lymphocytes # (A) 1.1 k/uL (1.0-4.8); Lymphocytes % (A) 13 %; MCHC 30.4 g/dL (31.0-37.0); MCV 98.7 fL (80.0-100.0); Mean Platelet Volume 7.3; Monocytes # (A) 0.6 k/uL (0-1.0); Monocytes % (A) 7 %; Neutrophils # (A) 6.7 k/uL (1.3-7.7); Neutrophils % (A) 77 %; Platelet Count 290 k/uL (150-450); RBC 4.34 m/uL (3.80-5.40); RDW 13.7 % (11.5-15.5); WBC 8.7 k/uL (3.8-10.6)
[2022-02-12 11:27] LABS: Albumin 4.1 g/dL (3.5-5.0); Calcium 8.9 mg/dL (8.4-10.2); Potassium 5.5 mmol/L (3.5-5.1); Total Bilirubin 0.3 mg/dL (0.2-1.3); Total Protein 7.2 g/dL (6.3-8.2)
--- NOTE | 2022-02-12 11:37 | US ---
EXAMINATION TYPE: US kidneys/renal and bladder DATE OF EXAM: 02/12/2022 COMPARISON: CT 02/11/2022 CLINICAL HISTORY: [place]. EXAM MEASUREMENTS: Right Kidney: 14.7 x 6.8 x 6.6 cm Left Kidney: not visualized Technically difficult study performed portably in the ICU on large body habitus patient. Right Kidney: large solid mass laterally measures 6.2 x 4.8 x 4.8 cm. No hydronephrosis or nephrol ithiasis. Left Kidney: not identified which may be technical related to severe atrophy Bladder: not imaged, patient has catheter. IMPRESSION: There is a large solid mass right kidney measuring 6.6 cm suspicious for malignancy. Incidental note made of cholelithiasis.
[2022-02-12 12:15] LABS: Glucose,Whole Blood 60 mg/dL (75-99)
[2022-02-12 12:43] LABS: Glucose,Whole Blood 61 mg/dL (75-99)
[2022-02-12] MEDS: INSULIN ASPART (NovoLOG) 100 UNIT/ML VIAL SQ SCH ×3 (12:52→20:46)
[2022-02-12] MEDS: DEXTROSE 5%-0.9% NACL 1,000 ML IV SCH ×2 (13:00→22:00)
[2022-02-12 13:18] LABS: Glucose,Whole Blood 148 mg/dL (75-99)
[2022-02-12 16:21] LABS: Glucose,Whole Blood 155 mg/dL (75-99)
[2022-02-12 17:25] LABS: Creatinine,Urine Random 30.6 mg/dL; Protein/Creatinine Ratio,Urine 2.026
[2022-02-12] MEDS ORDERED: MAG HYDROX/AL HYDROX/SIMETH 30 ML CUP PO PRN (18:54)
--- NOTE | 2022-02-12 19:10 | P.HPIM ---
History of Present Illness H&P Date: 02/12/22 Chief Complaint: Confusion This is a 56-year-old patient, follows with Dr. Erickson Dudley. Patient been a diabetic for about 10 years. Denies any complications from her diabetes that she knows of. Does follow with the family doctor. Has underlying hypertension. She does take oral hypoglycemics. Since the last 1 week she has been feeling a bit weak and tired. Her sister sent her to [facility]. Found to be hypoglycemic. Also severe acute kidney injury. Creatinine was 9.3 and potassium was found to be 6.4. Patient did receive IV calcium and IV bicarb christian was transferred here. Dr. Toro from vascular was called last night and he put in a dialysis catheter. Followed by hemodialysis. Patient has been making urine. Admitted to the ICU. Patient denied any fever and chills. Denies any respiratory or urinary symptoms. She is not entirely clear about the events leading to the other hospital. She said she had been getting a bit confused because of hypoglycemia. That she was told Review of systems: GEN.: Tired some decrease in appetite EYES: None HEENT: None NECK: None RESPIRATORY: None CARDIOVASCULAR: None GASTROINTESTINAL: None GENITOURINARY: None MUSCULOSKELETAL: None LYMPHATICS: None HEMATOLOGICAL: None PSYCHIATRY: None NEUROLOGICAL: None Past medical history to include: Diabetes, hypertension Social history: Lives with her mother and sister. No smoking. Alcohol occasionally. Family history: Hypertension, breast cancer Physical examination: VITAL SIGNS: 98.2, 104, 20, 1 09/15/1960, 94%] GENERAL: BMI 51.4, sitting up bed, awake a bit tired. EYES: Pupils equal. Conjunctiva normal. HEENT: External appearance of nose and ears normal, oral cavity grossly normal. NECK: JVD unable to assess; masses not palpable. HEART: Distance heart sound; no edema. LUNGS: Respiratory rate normal; distant breath sounds. ABDOMEN: Soft, nontender, liver spleen not palpable, no masses palpable. Right femoral dialysis catheter PSYCH: Alert and oriented x3; mood and affect normal. MUSCULOSKELETAL:No Clubbing/cyanosis;muscles-grossly intact NEUROLOGICAL: Cranial nerves grossly intact; no facial asymmetry, power and se nsation grossly intact. LYMPHATICS: No lymph nodes palpable in the axilla and neck INVESTIGATIONS, reviewed in the clinical context: February 12: White count 8.2 hemoglobin 12.1. History 95 potassium 5.7 BUN 74 creatinine 7.12 Admission labs: EKG tracing personally reviewed by me-normal sinus rhythm. rate 103. Nonspecific ST segment changes Chest x-ray film personally reviewed by me-no obvious infiltrate White count 10.7 hemoglobin 11.8. History 96 potassium 6.4. 93 creatinine 9.29. Glucose 42 lactic acid 6.5 troponin I 1.9 Hepatitis B screen: Negative Assessment and plan: -Acute metabolic/uremic encephalopathy from acute kidney injury: Improving -Acute kidney injury combination of prerenal from decreased oral intake and ATN. Patient has been on doris inhibitors, NSAIDs and diuretics. Emergent hemodialysis carried out yesterday evening.. Repeat to be done today. -Severe hyperkalemia from acute kidney injury. Also patient and DORIS inhibitor. Patient did receive bicarbonate calcium at the outside hospital.. Hemodialyzed yesterday. -Diabetes mellitus type 2, uncontrolled with hypoglycemia. Patient has been chronically on oral hypoglycemics. Hold for now. Accu-Cheks will size insulin. Small dose of Levemir this evening. Depending on oral intake intake -Hypoglycemia from decreased oral intake and patient being on Glucotrol and oral hypoglycemics. D5 0.45 -Morbid obesity BMI 51.4 Weight loss measures. Dietitian. -Metabolic acidosis from acute kidney injury Follow bicarb. -Diabetic peripheral neuropathy In the setting of severe renal failure. Cutback dose of Neurontin. -Elevated troponin in the setting of acute kidney injury. Hemodynamic mismatch Denied chest pain. 2-D echocardiogram. Consult cardiology -Essential hypertension. Patient blood pressures running low because of hypotension. For volume loss. Hold antihypertensive.. Hold oral hypoglycemic. Hold antihypertensive. Cutback dose of Neurontin. Patient started on dialysis last night. ICU. 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 2-D echocardiogram. Discussed with patient. Consult dietitian. Past Medical History Past Medical History: Diabetes Mellitus, Hypertension History of Any Multi-Drug Resistant Organisms: None Reported Past Surgical History: Orthopedic Surgery Additional Past Surgical History / Comment(s): bone spur right heel surgery, right meniscus surgery Past Anesthesia/Blood Transfusion Reactions: No Reported Reaction Past Psychological History: No Psychological Hx Reported Smoking Status: Former smoker Past Alcohol Use History: None Reported Past Drug Use History: None Reported - Past Family History Sister(s) Family Medical History: Diabetes Mellitus Additional Family Medical History / Comment(s): Both sisters have Type II diabetetes Mother Family Medical History: Hypertension Additional Family Medical History / Comment(s): Currently in remission from breast cancer Father Additional Family Medical History / Comment(s): no history reported, in car accident Medications and Allergies Home Medications Medication Instructions Recorded Confirmed Type glipiZIDE [Glucotrol] 10 mg PO AC-BID 08/25/15 02/11/22 History metFORMIN HCL [Glucophage] 1,000 mg PO BID 08/25/15 02/11/22 History Aspirin 81 mg PO DAILY #30 chewable 08/27/15 02/11/22 Rx Atorvastatin [Lipitor] 80 mg PO HS #30 tab 08/27/15 02/11/22 Rx Cyclobenzaprine [Flexeril] 10 mg PO TID PRN 02/11/22 02/11/22 History Diclofenac Sodium [Voltaren] 75 mg PO BID 02/11/22 02/11/22 History Gabapentin 300 mg PO BID 02/11/22 02/11/22 History HYDROcodone/APAP 5-325MG [[place] 1 tab PO Q6H PRN 02/11/22 02/11/22 History 5-325] Lisinopril-Hctz 10-12.5 mg 1 tab PO BID 02/11/22 02/11/22 History [Zestoretic 10-12.5] Multivitamins, Thera [Multivitamin 1 tab PO DAILY 02/11/22 02/11/22 History (formulary)] Pioglitazone [Actos] 30 mg PO DAILY 02/11/22 02/11/22 History Spironolactone 50 mg PO DAILY 02/11/22 02/11/22 History Allergies Allergy/AdvReac Type Severity Reaction Status Date / Time ibuprofen Allergy Rash/Hives Verified 02/11/22 14:47 Physical Exam Vitals: Vital Signs Temp Pulse Resp BP BP Pulse Ox 02/12/22 10:30 103 H 15 95 02/12/22 10:00 104 H 20 118/61 94 L 02/12/22 09:00 126/71 02/12/22 08:30 98.2 F 97 10 L 125/79 95 02/12/22 08:00 104 H 17 122/69 96 02/12/22 07:30 102 H 11 L 117/67 97 02/12/22 07:00 98 12 117/65 96 02/12/22 06:30 101 H 12 113/74 97 02/12/22 06:00 105 H 16 95/69 94 L 02/12/22 05:30 105 H 16 108/56 92 L 02/12/22 05:00 105 H 18 119/62 93 L 02/12/22 04:30 106 H 20 121/64 97 02/12/22 04:00 98.1 F 98 14 115/63 96 02/12/22 03:30 103 H 12 92/69 96 02/12/22 03:00 99 14 91/73 95 02/12/22 02:30 100 16 91/73 96 02/12/22 02:00 105 H 16 107/40 85 L 02/12/22 01:30 105 H 16 147/80 97 02/12/22 01:00 102 H 16 144/71 97 02/12/22 00:30 100 22 122/84 98 02/12/22 00:25 103 H 13 122/84 98 02/12/22 00:00 97.8 F 105 H 16 122/60 96 02/11/22 23:30 101 H 12 124/71 91 L 02/11/22 23:00 102 H 14 127/68 97 02/11/22 22:30 104 H 14 146/70 96 02/11/22 22:00 105 H 16 110/81 98 02/11/22 21:30 104 H 16 131/103 97 02/11/22 21:00 100 14 139/68 96 02/11/22 20:30 102 H 16 139/68 96 02/11/22 20:09 146/66 02/11/22 20:00 97.7 F 101 H 14 147/65 95 02/11/22 19:30 100 16 151/72 94 L 02/11/22 19:00 59 H 137/75 99 02/11/22 18:44 106 H 56 H 137/47 96 02/11/22 18:17 97.7 F 18 137/47 02/11/22 17:30 145/67 02/11/22 17:00 102 H 18 104/86 98 02/11/22 16:44 101 H 18 104/86 99 02/11/22 16:42 100 02/11/22 16:32 99 10 L 06/06/22 16:30 98 18 127/60 100 02/11/22 16:16 88 18 126/67 02/11/22 15:08 101 H 18 131/67 95 02/11/22 13:23 97.9 F 105 H 18 154/65 98 Intake and Output 02/11/22 02/12/22 02/12/22 22:59 06:59 14:59 Intake Total 735 1000 445 Output Total 3125 2400 475 Balance -2390 -1400 -30 Intake: Intake, IV Titration 375 1000 325 Amount Dextrose 5% in Water 1, 375 1000 125 000 ml @ 125 mls/hr IV . Q9H12M CAT with Sodium Bicarb (1 Meq/ml) 150 ml Rx#:[id number] Sodium Chloride 0.9% 1, 200 000 ml @ 100 mls/hr IV . Q10H CAT Rx#:[id number] Oral 360 120 Output: Urine 3125 2400 475 Hemodialysis 0 Other: Voiding Method Indwelling Catheter Indwelling Catheter Indwelling Catheter Weight 131.542 kg 131.542 kg Results CBC & Chem 7: 02/12/22 10:05 02/12/22 10:51 Labs: Abnormal Lab Results - Last 24 Hours (Table) 02/11/22 02/11/22 02/11/22 Range/Units 13:28 13:48 13:48 WBC 10.7 H (3.8-10.6) k/uL MCV 100.7 H (80.0-100.0) fL MCHC 28.5 L (31.0-37.0) g/dL Neutrophils # 8.8 H (1.3-7.7) k/uL Sodium (137-145) mmol/L Potassium 6.4 H* (3.5-5.1) mmol/L Chloride (98-107) mmol/L Carbon Dioxide 13 L (22-30) mmol/L BUN 93 H (7-17) mg/dL Creatinine 9.29 H* (0.52-1.04) mg/dL Glucose 42 L* (74-99) mg/dL POC Glucose (mg/dL) 49 L (75-99) mg/dL Plasma Lactic Acid Saad (0.7-2.0) mmol/L AST 48 H (14-36) U/L Troponin I (0.000-0.034) ng/mL Urine Protein (Negative) Urine Blood (Negative) Ur Leukocyte Esterase (Negative) Urine RBC (0-5) /hpf Urine WBC (0-5) /hpf Urine Bacteria (None) /hpf Urine Mucus (None) /hpf 02/11/22 02/11/22 02/11/22 Range/Units 13:48 13:48 15:07 WBC (3.8-10.6) k/uL MCV (80.0-100.0) fL MCHC (31.0-37.0) g/dL Neutrophils # (1.3-7.7) k/uL Sodium (137-145) mmol/L Potassium (3.5-5.1) mmol/L Chloride (98-107) mmol/L Carbon Dioxide (22-30) mmol/L BUN (7-17) mg/dL Creatinine (0.52-1.04) mg/dL Glucose (74-99) mg/dL POC Glucose (mg/dL) 50 L (75-99) mg/dL Plasma Lactic Acid Saad 6.5 H* (0.7-2.0) mmol/L AST (14-36) U/L Troponin I 1.900 H* (0.000-0.034) ng/mL Urine Protein (Negative) Urine Blood (Negative) Ur Leukocyte Esterase (Negative) Urine RBC (0-5) /hpf Urine WBC (0-5) /hpf Urine Bacteria (None) /hpf Urine Mucus (None) /hpf 02/11/22 02/11/22 02/11/22 Range/Units 16:09 17:06 18:29 WBC (3.8-10.6) k/uL MCV (80.0-100.0) fL MCHC (31.0-37.0) g/dL Neutrophils # (1.3-7.7) k/uL Sodium (137-145) mmol/L Potassium (3.5-5.1) mmol/L Chloride (98-107) mmol/L Carbon Dioxide (22-30) mmol/L BUN (7-17) mg/dL Creatinine (0.52-1.04) mg/dL Glucose (74-99) mg/dL POC Glucose (mg/dL) 32 L 64 L 28 L (75-99) mg/dL Plasma Lactic Acid Saad (0.7-2.0) mmol/L AST (14-36) U/L Troponin I (0.000-0.034) ng/mL Urine Protein (Negative) Urine Blood (Negative) Ur Leukocyte Esterase (Negative) Urine RBC (0-5) /hpf Urine WBC (0-5) /hpf Urine Bacteria (None) /hpf Urine Mucus (None) /hpf 02/11/22 02/11/22 02/11/22 Range/Units 18:30 18:47 19:07 WBC (3.8-10.6) k/uL MCV (80.0-100.0) fL MCHC (31.0-37.0) g/dL Neutrophils # (1.3-7.7) k/uL Sodium (137-145) mmol/L Potassium (3.5-5.1) mmol/L Chloride (98-107) mmol/L Carbon Dioxide (22-30) mmol/L BUN (7-17) mg/dL Creatinine (0.52-1.04) mg/dL Glucose (74-99) mg/dL POC Glucose (mg/dL) 31 L 68 L (75-99) mg/dL Plasma Lactic Acid Saad 3.6 H* (0.7-2.0) mmol/L AST (14-36) U/L Troponin I (0.000-0.034) ng/mL Urine Protein (Negative) Urine Blood (Negative) Ur Leukocyte Esterase (Negative) Urine RBC (0-5) /hpf Urine WBC (0-5) /hpf Urine Bacteria (None) /hpf Urine Mucus (None) /hpf 02/11/22 02/11/22 02/11/22 Range/Units 21:15 22:32 22:33 WBC (3.8-10.6) k/uL MCV (80.0-100.0) fL MCHC (31.0-37.0) g/dL Neutrophils # (1.3-7.7) k/uL Sodium 136 L (137-145) mmol/L Potassium 5.2 H (3.5-5.1) mmol/L Chloride (98-107) mmol/L Carbon Dioxide (22-30) mmol/L BUN 72 H (7-17) mg/dL Creatinine 7.14 H* (0.52-1.04) mg/dL Glucose 114 H (74-99) mg/dL POC Glucose (mg/dL) 44 L 71 L (75-99) mg/dL Plasma Lactic Acid Saad (0.7-2.0) mmol/L AST (14-36) U/L Troponin I (0.000-0.034) ng/mL Urine Protein (Negative) Urine Blood (Negative) Ur Leukocyte Esterase (Negative) Urine RBC (0-5) /hpf Urine WBC (0-5) /hpf Urine Bacteria (None) /hpf Urine Mucus (None) /hpf 02/11/22 02/12/22 02/12/22 Range/Units 22:33 00:58 01:24 WBC (3.8-10.6) k/uL MCV (80.0-100.0) fL MCHC (31.0-37.0) g/dL Neutrophils # (1.3-7.7) k/uL Sodium (137-145) mmol/L Potassium (3.5-5.1) mmol/L Chloride (98-107) mmol/L Carbon Dioxide (22-30) mmol/L BUN (7-17) mg/dL Creatinine (0.52-1.04) mg/dL Glucose (74-99) mg/dL POC Glucose (mg/dL) 53 L 58 L (75-99) mg/dL Plasma Lactic Acid Saad 4.5 H* (0.7-2.0) mmol/L AST (14-36) U/L Troponin I (0.000-0.034) ng/mL Urine Protein (Negative) Urine Blood (Negative) Ur Leukocyte Esterase (Negative) Urine RBC (0-5) /hpf Urine WBC (0-5) /hpf Urine Bacteria (None) /hpf Urine Mucus (None) /hpf 02/12/22 02/12/22 02/12/22 Range/Units 01:42 02:26 03:32 WBC (3.8-10.6) k/uL MCV (80.0-100.0) fL MCHC (31.0-37.0) g/dL Neutrophils # (1.3-7.7) k/uL Sodium (137-145) mmol/L Potassium (3.5-5.1) mmol/L Chloride (98-107) mmol/L Carbon Dioxide (22-30) mmol/L BUN (7-17) mg/dL Creatinine (0.52-1.04) mg/dL Glucose (74-99) mg/dL POC Glucose (mg/dL) 105 H 111 H 118 H (75-99) mg/dL Plasma Lactic Acid Saad (0.7-2.0) mmol/L AST (14-36) U/L Troponin I (0.000-0.034) ng/mL Urine Protein (Negative) Urine Blood (Negative) Ur Leukocyte Esterase (Negative) Urine RBC (0-5) /hpf Urine WBC (0-5) /hpf Urine Bacteria (None) /hpf Urine Mucus (None) /hpf 02/12/22 02/12/22 02/12/22 Range/Units 05:35 05:51 05:51 WBC (3.8-10.6) k/uL MCV (80.0-100.0) fL MCHC 29.8 L (31.0-37.0) g/dL Neutrophils # (1.3-7.7) k/uL Sodium (137-145) mmol/L Potassium 5.7 H (3.5-5.1) mmol/L Chloride 97 L (98-107) mmol/L Carbon Dioxide (22-30) mmol/L BUN 74 H (7-17) mg/dL Creatinine 7.12 H* (0.52-1.04) mg/dL Glucose (74-99) mg/dL POC Glucose (mg/dL) 110 H (75-99) mg/dL Plasma Lactic Acid Saad (0.7-2.0) mmol/L AST (14-36) U/L Troponin I (0.000-0.034) ng/mL Urine Protein (Negative) Urine Blood (Negative) Ur Leukocyte Esterase (Negative) Urine RBC (0-5) /hpf Urine WBC (0-5) /hpf Urine Bacteria (None) /hpf Urine Mucus (None) /hpf 02/12/22 02/12/22 Range/Units 05:51 09:45 WBC (3.8-10.6) k/uL MCV (80.0-100.0) fL MCHC (31.0-37.0) g/dL Neutrophils # (1.3-7.7) k/uL Sodium (137-145) mmol/L Potassium (3.5-5.1) mmol/L Chloride (98-107) mmol/L Carbon Dioxide (22-30) mmol/L BUN (7-17) mg/dL Creatinine (0.52-1.04) mg/dL Glucose (74-99) mg/dL POC Glucose (mg/dL) (75-99) mg/dL Plasma Lactic Acid Saad 4.1 H* (0.7-2.0) mmol/L AST (14-36) U/L Troponin I (0.000-0.034) ng/mL Urine Protein 1+ H (Negative) Urine Blood Large H (Negative) Ur Leukocyte Esterase Moderate H (Negative) Urine RBC 86 H (0-5) /hpf Urine WBC 14 H (0-5) /hpf Urine Bacteria Rare H (None) /hpf Urine Mucus Rare H (None) /hpf Thrombosis Risk Factor Assmnt - Choose All That Apply Each Factor Represents 1 point: Age 41-60 years, Obesity (BMI >25) Other Risk Factors: Yes Each Risk Factor Represents 2 Points: Central venous access, Patient confined to bed Other congenital or acquired thrombophilia - If yes, enter type in comment: No Thrombosis Risk Factor Assessment Total Risk Factor Score: 6 Thrombosis Risk Factor Assessment Level: High Risk
[2022-02-12] MEDS ORDERED: ENOXAPARIN 40 MG/0.4 ML SYRINGE SQ SCH (19:30)
[2022-02-12 20:15] LABS: Glucose,Whole Blood 242 mg/dL (75-99)
[2022-02-12] MEDS: ENOXAPARIN 30 MG/0.3 ML SYRINGE SQ SCH (20:36)
[2022-02-12] MEDS: ATORVASTATIN 80 MG TAB PO SCH (20:36)
[2022-02-12] MEDS ORDERED: GABAPENTIN 300 MG CAP PO SCH (21:00)
[2022-02-12] MEDS ORDERED: INSULIN DETEMIR (LEVEMIR) 100 UNIT/ML SYR SQ SCH (21:00)
[2022-02-12] MEDS: SODIUM CHLORIDE 0.9% 1,000 ML IV SCH (22:00)
[2022-02-13 02:05] LABS: Glucose,Whole Blood 213 mg/dL (75-99)
[2022-02-13 06:53] LABS: Glucose,Whole Blood 200 mg/dL (75-99)
[2022-02-13] MEDS: INSULIN ASPART (NovoLOG) 100 UNIT/ML VIAL SQ SCH ×5 (06:57→20:57)
[2022-02-13] MEDS: PANTOPRAZOLE 40 MG TABLET PO SCH (06:57)
[2022-02-13 07:34] LABS: Basophils % (A) 1 %; Eosinophils # (A) 0.3 k/uL (0-0.7); Eosinophils % (A) 5 %; HGB 11.8 gm/dL (11.4-16.0); Hypochromasia Slight; Lymphocytes # (A) 1.2 k/uL (1.0-4.8); Lymphocytes % (A) 19 %; MCH 29.3 pg (25.0-35.0); MCHC 29.5 g/dL (31.0-37.0); MCV 99.3 fL (80.0-100.0); Mean Platelet Volume 7.3; Monocytes # (A) 0.5 k/uL (0-1.0); Monocytes % (A) 8 %; Neutrophils # (A) 4.3 k/uL (1.3-7.7); Neutrophils % (A) 66 %; Platelet Count 244 k/uL (150-450); RBC 4.02 m/uL (3.80-5.40); RDW 13.4 % (11.5-15.5); WBC 6.5 k/uL (3.8-10.6)
--- NOTE | 2022-02-13 07:40 | P.GSCN ---
History of Present Illness Consult date: 02/13/22 History of present illness: 56-year-old female transferred from [facility] for further evaluation and treatment of renal failure. The patient is a long-standing morbidly obese diabetic. She had been on diuretics as well as anti- inflammatories. She was awakened yesterday morning not feeling well, possibly a little disoriented. [facility] was [facility] emergency room and found to have a creatinine of 10. She was transferred to [facility] for further evaluation and treatment. She has been dialyzed. His most recent creatinine was 7.4. She is making urine. She had a computed tomography scan and an ultrasound that did not identify any hydronephrosis but there is a 6 x 5 cm right lower pole mass that is worrisome for malignancy. She has no urologic history. There's been no hematuria or flank pain. She has not had previous geographic evaluation of her kidneys. Her urinalysis has 86 red cells and 14 white blood cells. She has no flank pain. Review of Systems All systems: negative - Constitutional Denies fever, Denies weight loss - EENT Eyes: denies blurred vision Ears, nose, mouth and throat: Denies dysphagia - Cardiovascular Denies chest pain, Denies shortness of breath - Respiratory Denies cough, Denies 7 - Gastrointestinal Reports as per HPI - Genitourinary Genitourinary: Denies dysuria, Denies hematuria - Integumentary Denies rash, Denies unusual bruising - Neurological Denies headaches, Denies syncope - Hematologic/Lymphatic Denies easy bleeding, Denies easy bruising Past Medical History Past Medical History: Diabetes Mellitus, Hypertension History of Any Multi-Drug Resistant Organisms: None Reported Past Surgical History: Orthopedic Surgery Additional Past Surgical History / Comment(s): bone spur right heel surgery, right meniscus surgery Past Anesthesia/Blood Transfusion Reactions: No Reported Reaction Past Psychological History: No Psychological Hx Reported Smoking Status: Former smoker Past Alcohol Use History: None Reported Past Drug Use History: None Reported - Past Family History Sister(s) Family Medical History: Diabetes Mellitus Additional Family Medical History / Comment(s): Both sisters have Type II diabetetes Mother Family Medical History: Hypertension Additional Family Medical History / Comment(s): Currently in remission from breast cancer Father Additional Family Medical History / Comment(s): no history reported, in car accident Medications and Allergies Home Medications Medication Instructions Recorded Confirmed Type glipiZIDE [Glucotrol] 10 mg PO AC-BID 08/25/15 02/11/22 History metFORMIN HCL [Glucophage] 1,000 mg PO BID 08/25/15 02/11/22 History Aspirin 81 mg PO DAILY #30 chewable 08/27/15 02/11/22 Rx Atorvastatin [Lipitor] 80 mg PO HS #30 tab 08/27/15 02/11/22 Rx Cyclobenzaprine [Flexeril] 10 mg PO TID PRN 02/11/22 02/11/22 History Diclofenac Sodium [Voltaren] 75 mg PO BID 02/11/22 02/11/22 History Gabapentin 300 mg PO BID 02/11/22 02/11/22 History HYDROcodone/APAP 5-325MG [[place] 1 tab PO Q6H PRN 02/11/22 02/11/22 History 5-325] Lisinopril-Hctz 10-12.5 mg 1 tab PO BID 02/11/22 02/11/22 History [Zestoretic 10-12.5] Multivitamins, Thera [Multivitamin 1 tab PO DAILY 02/11/22 02/11/22 History (formulary)] Pioglitazone [Actos] 30 mg PO DAILY 02/11/22 02/11/22 History Spironolactone 50 mg PO DAILY 02/11/22 02/11/22 History Allergies Allergy/AdvReac Type Severity Reaction Status Date / Time ibuprofen Allergy Rash/Hives Verified 02/11/22 14:47 Surgical - Exam Vital Signs Temp Pulse Resp BP Pulse Ox 97.9 F 105 H 18 154/65 98 02/11/22 13:23 02/11/22 13:23 02/11/22 13:23 02/11/22 13:23 02/11/22 13:23 - General well developed, well nourished, no distress, obese - Eyes normal ocular movement, no icteric - ENT no hearing loss, no congestion - Neck no masses, trachea midline - Respiratory normal respiratory effort, clear to auscultation - Abdomen Abdomen: soft, non tender, no guarding, no rigid, no rebound - Integumentary no rash, no abnormal pigmentation - Neurologic no disoriented, no combative - Psychiatric oriented to time, oriented to person, oriented to place, speech is normal, memory intact Results - Labs 02/13/22 06:29 02/12/22 10:51 Abnormal Lab Results - Last 24 Hours (Table) 02/12/22 02/12/22 02/12/22 Range/Units 05:51 09:45 10:05 MCHC 30.4 L (31.0-37.0) g/dL Potassium (3.5-5.1) mmol/L Chloride (98-107) mmol/L BUN (7-17) mg/dL Creatinine (0.52-1.04) mg/dL POC Glucose (mg/dL) (75-99) mg/dL Plasma Lactic Acid Saad 4.1 H* (0.7-2.0) mmol/L AST (14-36) U/L ALT (4-34) U/L Troponin I (0.000-0.034) ng/mL Urine Protein 1+ H (Negative) Urine Blood Large H (Negative) Ur Leukocyte Esterase Moderate H (Negative) Urine RBC 86 H (0-5) /hpf Urine WBC 14 H (0-5) /hpf Urine Bacteria Rare H (None) /hpf Urine Mucus Rare H (None) /hpf 02/12/22 02/12/22 02/12/22 Range/Units 10:05 10:51 12:01 MCHC (31.0-37.0) g/dL Potassium 5.5 H (3.5-5.1) mmol/L Chloride 97 L (98-107) mmol/L BUN 70 H (7-17) mg/dL Creatinine 7.48 H* (0.52-1.04) mg/dL POC Glucose (mg/dL) (75-99) mg/dL Plasma Lactic Acid Saad 2.1 H* (0.7-2.0) mmol/L AST 57 H (14-36) U/L ALT 35 H (4-34) U/L Troponin I 0.282 H* (0.000-0.034) ng/mL Urine Protein (Negative) Urine Blood (Negative) Ur Leukocyte Esterase (Negative) Urine RBC (0-5) /hpf Urine WBC (0-5) /hpf Urine Bacteria (None) /hpf Urine Mucus (None) /hpf 02/12/22 02/12/22 02/12/22 Range/Units 12:13 12:41 13:16 MCHC (31.0-37.0) g/dL Potassium (3.5-5.1) mmol/L Chloride (98-107) mmol/L BUN (7-17) mg/dL Creatinine (0.52-1.04) mg/dL POC Glucose (mg/dL) 60 L 61 L 148 H (75-99) mg/dL Plasma Lactic Acid Saad (0.7-2.0) mmol/L AST (14-36) U/L ALT (4-34) U/L Troponin I (0.000-0.034) ng/mL Urine Protein (Negative) Urine Blood (Negative) Ur Leukocyte Esterase (Negative) Urine RBC (0-5) /hpf Urine WBC (0-5) /hpf Urine Bacteria (None) /hpf Urine Mucus (None) /hpf 02/12/22 02/12/22 02/12/22 Range/Units 16:19 16:38 20:14 MCHC (31.0-37.0) g/dL Potassium (3.5-5.1) mmol/L Chloride (98-107) mmol/L BUN (7-17) mg/dL Creatinine (0.52-1.04) mg/dL POC Glucose (mg/dL) 155 H 242 H (75-99) mg/dL Plasma Lactic Acid Saad (0.7-2.0) mmol/L AST (14-36) U/L ALT (4-34) U/L Troponin I 0.193 H* (0.000-0.034) ng/mL Urine Protein (Negative) Urine Blood (Negative) Ur Leukocyte Esterase (Negative) Urine RBC (0-5) /hpf Urine WBC (0-5) /hpf Urine Bacteria (None) /hpf Urine Mucus (None) /hpf 02/13/22 02/13/22 02/13/22 Range/Units 02:03 06:29 06:52 MCHC 29.5 L (31.0-37.0) g/dL Potassium (3.5-5.1) mmol/L Chloride (98-107) mmol/L BUN (7-17) mg/dL Creatinine (0.52-1.04) mg/dL POC Glucose (mg/dL) 213 H 200 H (75-99) mg/dL Plasma Lactic Acid Saad (0.7-2.0) mmol/L AST (14-36) U/L ALT (4-34) U/L Troponin I (0.000-0.034) ng/mL Urine Protein (Negative) Urine Blood (Negative) Ur Leukocyte Esterase (Negative) Urine RBC (0-5) /hpf Urine WBC (0-5) /hpf Urine Bacteria (None) /hpf Urine Mucus (None) /hpf Microbiology - Last 24 Hours (Table) 02/12/22 09:45 Urine Culture - Preliminary Urine,Voided Diabetes panel 02/12/22 Range/Units 10:51 Sodium 140 (137-145) mmol/L Potassium 5.5 H (3.5-5.1) mmol/L Chloride 97 L (98-107) mmol/L Carbon Dioxide 26 (22-30) mmol/L BUN 70 H (7-17) mg/dL Creatinine 7.48 H* (0.52-1.04) mg/dL Glucose 87 (74-99) mg/dL Calcium 8.9 (8.4-10.2) mg/dL AST 57 H (14-36) U/L ALT 35 H (4-34) U/L Alkaline Phosphatase 118 (38-126) U/L Total Protein 7.2 (6.3-8.2) g/dL Albumin 4.1 (3.5-5.0) g/dL Calcium panel 02/12/22 Range/Units 10:51 Calcium 8.9 (8.4-10.2) mg/dL Albumin 4.1 (3.5-5.0) g/dL Pituitary panel 02/12/22 Range/Units 10:51 Sodium 140 (137-145) mmol/L Potassium 5.5 H (3.5-5.1) mmol/L Chloride 97 L (98-107) mmol/L Carbon Dioxide 26 (22-30) mmol/L BUN 70 H (7-17) mg/dL Creatinine 7.48 H* (0.52-1.04) mg/dL Glucose 87 (74-99) mg/dL Calcium 8.9 (8.4-10.2) mg/dL Adrenal panel 02/12/22 Range/Units 10:51 Sodium 140 (137-145) mmol/L Potassium 5.5 H (3.5-5.1) mmol/L Chloride 97 L (98-107) mmol/L Carbon Dioxide 26 (22-30) mmol/L BUN 70 H (7-17) mg/dL Creatinine 7.48 H* (0.52-1.04) mg/dL Glucose 87 (74-99) mg/dL Calcium 8.9 (8.4-10.2) mg/dL Total Bilirubin 0.3 (0.2-1.3) mg/dL AST 57 H (14-36) U/L ALT 35 H (4-34) U/L Alkaline Phosphatase 118 (38-126) U/L Total Protein 7.2 (6.3-8.2) g/dL Albumin 4.1 (3.5-5.0) g/dL - Imaging CT scan - abdomen: report reviewed, image reviewed CT scan - pelvis: report reviewed, image reviewed US - abdomen: report reviewed, image reviewed US - kidney/bladder: report reviewed, image reviewed Assessment and Plan Assessment: Impression: Right lower pole kidney mass probably malignant based on computed tomography scan and ultrasound. Renal failure, probable multiple causes. Recommendations: The clarification and determination of the cause of her renal failure and suture of her renal failure will come in to play as to how to approach this renal mass. Most likely she'll need a surgical procedure. I will review the radiology findings with the radiologist and then depending on how she responds to the treatment of her renal failure as to further recommendations. I'll follow this patient.
[2022-02-13] MEDS: MULTIVITAMINS, THERA 1 EACH TAB PO SCH (08:16)
[2022-02-13 08:20] LABS: Albumin 3.3 g/dL (3.5-5.0); Calcium 8.7 mg/dL (8.4-10.2); Total Bilirubin 0.6 mg/dL (0.2-1.3); Total Protein 6.2 g/dL (6.3-8.2)
[2022-02-13 08:21] LABS: Potassium 5.5 mmol/L (3.5-5.1)
--- NOTE | 2022-02-13 09:05 | XR ---
EXAMINATION TYPE: XR chest 1V portable DATE OF EXAM: 02/13/2022 COMPARISON: NONE HISTORY: sob TECHNIQUE: Single frontal view of the chest is obtained. FINDINGS: There is no focal air space opacity, pleural effusion, or pneumothorax seen. The cardiac silhouette size is within normal limits. The osseous structures are intact. IMPRESSION: No acute process.
--- NOTE | 2022-02-13 09:38 | P.PN ---
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 The patient is diabetic and she has hypertension. She has been maintained on a combination of Glucophage, Glucotrol, and Actos. The patient was feeling weak and she was having generalized fatigue and episodes of hypoglycemia. She was seen at the [facility] emergency department and she was found also to be in acute kidney injury. The creatinine was as high as 9.3 and the potassium was as high as 6.4. I even her that the potassium was even higher at [facility]. The patient was given calcium and bicarb and following that she was transferred to our hospital. Initial blood work here in our hospital showed a sodium of 139, potassium of 6.4, serum bicarbonate 13, BUN is 93 with a creatinine of 9.2, lactic acid level was 6.5 which dropped down to 4.1, her troponin was 1.9, and the CBC showed a white cell count of 10.7 with a hemoglobin 11.8 and platelet count of 296. She was still having episodes of hypoglycemia and she received a total of 3 doses of D50. She was started on IV fluids and currently she is on a normal saline at the rate of 100 mL an hour. Earlier to that she was on a bicarb infusion at the rate of 125 mL an hour. Her serum bicarbonate improve this morning is up to 26. She was given further potassium treatment yesterday and she underwent dialysis after inserting a temporary dialysis catheter in her right groin. She received a hemodialysis session yesterday. She receive no ultrafiltration.. She is currently on room air oxygen. She does have chronic lower extremity edema. She is hemodynamically stable. Ventura catheter is in place and the patient is producing excellent amount of urine output. The repeat creatinine today is down to 7.12. Repeat potassium level is down to 5.7. No nausea. No vomiting. No emesis. No further episodes of hypoglycemia. She is tolerating oral diet. CAT scan of the abdomen and pelvis was done. The patient has an atrophic left kidney. Right kidney showed a 7 mm lesion which also raised the suspicion for an underlying RCC. A contrast enhanced CAT scan will be needed later stage. There is also 3 mm nonobstructive calculus in the lower pole of the right kidney. No 70 kenney nary artery disease. No history of any chest pain. EKG showing a normal sinus rhythm. No acute ST segment changes. The patient is fully vaccinated for COVID 19 02/13/2022, I'm seeing the patient for a follow-up. The patient has no specific complaints for which she continues to improve. She received another session of hemodialysis yesterday and no fluid was removed and she is doing well in terms of her electrolyte balance. She was seen by urology and nephrology pH is making excellent urine output. She produced approximately 4.3 L of urine output yesterday and she remains in a negative fluid balance for now. Meanwhile, the patient was seen by urology. This is regarding the lesion that was seen on her right kidney. Based on urology is consultation, the patient will need outpatient follow-up regarding his abnormal findings. This right lower pole kidney lesion is probably malignant based on the CAT scan and ultrasound characteristics. This will be dealt at a later stage on outpatient basis. Meanwhile, the patient is currently on IV fluids at 60 mL an hour of normal saline. Electrolytes from today show a sodium of 137, BUN is 49 with a creatinine of 5.1 and the potassium level is at 5.5. The white cell count is at 6.5 with a hemoglobin of 11.8. A urinalysis was obtained yesterday and it showed 14 WBCs, 86 RBCs and +1 protein. Objective - Vital Signs Vital signs: Vital Signs Temp 98.0 F 02/13/22 04:00 Pulse 92 02/13/22 07:00 Resp 16 02/13/22 07:00 BP 104/53 02/13/22 07:00 Pulse Ox 95 02/13/22 08:00 FiO2 Intake & Output 02/12/22 02/13/22 02/13/22 18:59 06:59 18:59 Intake Total 1705 1280 460 Output Total 2115 2220 100 Balance -410 -940 360 Weight 131.542 kg 143.3 kg Intake: Intake, IV Titration 1225 1100 100 Amount Dextrose 5% in Water 1, 125 000 ml @ 125 mls/hr IV . Q9H12M CAT with Sodium Bicarb (1 Meq/ml) 150 ml Rx#:[id number] Dextrose 5%-0.9% NaCl 1, 700 100 000 ml @ 100 mls/hr IV . Q10H CAT Rx#:[id number] Sodium Chloride 0.9% 1, 400 1000 100 000 ml @ 100 mls/hr IV . Q10H CAT Rx#:[id number] Oral 480 180 360 Output: Urine 2115 2220 100 Hemodialysis 0 Other: Voiding Method Indwelling Catheter Indwelling Catheter Indwelling Catheter # Bowel Movements 1 - Exam General appearance: alert, obese, other (drowsy at times), body mass index is 51.4 and the patient is awake and alert and breathing is nonlabored patient sitting up on a chair and she is coughing comfortable. Head exam: Present: atraumatic, normocephalic, normal inspection Eye exam: Present: normal appearance, PERRL, EOMI. Absent: scleral icterus, conjunctival injection, periorbital swelling ENT exam: Present: normal exam, mucous membranes moist Neck exam: Present: normal inspection. Absent: tenderness, meningismus, lymphadenopathy Respiratory exam: Present: normal lung sounds bilaterally. Absent: respiratory distress, wheezes, rales, rhonchi, stridor Cardiovascular Exam: Present: regular rate, normal rhythm, normal heart sounds. Absent: systolic murmur, diastolic murmur, rubs, gallop, clicks GI/Abdominal exam: Present: soft, normal bowel sounds. Absent: distended, tenderness, guarding, rebound, rigid External exam: Present: other (Ventura catheter intact with clear yellow urine adequate output noted) Extremities exam: Absent: pedal edema, joint swelling Neurological exam: Present: alert, oriented X3, CN II-XII intact Psychiatric exam: Present: normal affect, normal mood Skin exam: Present: other (Excoriation noted under pannus) - Labs CBC & Chem 7: 02/13/22 06:29 02/13/22 06:29 Labs: Abnormal Lab Results - Last 24 Hours (Table) 02/12/22 02/12/22 02/12/22 Range/Units 09:45 10:05 10:05 MCHC 30.4 L (31.0-37.0) g/dL Potassium (3.5-5.1) mmol/L Chloride (98-107) mmol/L BUN (7-17) mg/dL Creatinine (0.52-1.04) mg/dL Glucose (74-99) mg/dL POC Glucose (mg/dL) (75-99) mg/dL Plasma Lactic Acid Saad (0.7-2.0) mmol/L AST (14-36) U/L ALT (4-34) U/L Troponin I 0.282 H* (0.000-0.034) ng/mL Total Protein (6.3-8.2) g/dL Albumin (3.5-5.0) g/dL Urine Protein 1+ H (Negative) Urine Blood Large H (Negative) Ur Leukocyte Esterase Moderate H (Negative) Urine RBC 86 H (0-5) /hpf Urine WBC 14 H (0-5) /hpf Urine Bacteria Rare H (None) /hpf Urine Mucus Rare H (None) /hpf 02/12/22 02/12/22 02/12/22 Range/Units 10:51 12:01 12:13 MCHC (31.0-37.0) g/dL Potassium 5.5 H (3.5-5.1) mmol/L Chloride 97 L (98-107) mmol/L BUN 70 H (7-17) mg/dL Creatinine 7.48 H* (0.52-1.04) mg/dL Glucose (74-99) mg/dL POC Glucose (mg/dL) 60 L (75-99) mg/dL Plasma Lactic Acid Saad 2.1 H* (0.7-2.0) mmol/L AST 57 H (14-36) U/L ALT 35 H (4-34) U/L Troponin I (0.000-0.034) ng/mL Total Protein (6.3-8.2) g/dL Albumin (3.5-5.0) g/dL Urine Protein (Negative) Urine Blood (Negative) Ur Leukocyte Esterase (Negative) Urine RBC (0-5) /hpf Urine WBC (0-5) /hpf Urine Bacteria (None) /hpf Urine Mucus (None) /hpf 02/12/22 02/12/22 02/12/22 Range/Units 12:41 13:16 16:19 MCHC (31.0-37.0) g/dL Potassium (3.5-5.1) mmol/L Chloride (98-107) mmol/L BUN (7-17) mg/dL Creatinine (0.52-1.04) mg/dL Glucose (74-99) mg/dL POC Glucose (mg/dL) 61 L 148 H 155 H (75-99) mg/dL Plasma Lactic Acid Saad (0.7-2.0) mmol/L AST (14-36) U/L ALT (4-34) U/L Troponin I (0.000-0.034) ng/mL Total Protein (6.3-8.2) g/dL Albumin (3.5-5.0) g/dL Urine Protein (Negative) Urine Blood (Negative) Ur Leukocyte Esterase (Negative) Urine RBC (0-5) /hpf Urine WBC (0-5) /hpf Urine Bacteria (None) /hpf Urine Mucus (None) /hpf 02/12/22 02/12/22 02/13/22 Range/Units 16:38 20:14 02:03 MCHC (31.0-37.0) g/dL Potassium (3.5-5.1) mmol/L Chloride (98-107) mmol/L BUN (7-17) mg/dL Creatinine (0.52-1.04) mg/dL Glucose (74-99) mg/dL POC Glucose (mg/dL) 242 H 213 H (75-99) mg/dL Plasma Lactic Acid Saad (0.7-2.0) mmol/L AST (14-36) U/L ALT (4-34) U/L Troponin I 0.193 H* (0.000-0.034) ng/mL Total Protein (6.3-8.2) g/dL Albumin (3.5-5.0) g/dL Urine Protein (Negative) Urine Blood (Negative) Ur Leukocyte Esterase (Negative) Urine RBC (0-5) /hpf Urine WBC (0-5) /hpf Urine Bacteria (None) /hpf Urine Mucus (None) /hpf 02/13/22 02/13/22 02/13/22 Range/Units 06:29 06:29 06:52 MCHC 29.5 L (31.0-37.0) g/dL Potassium 5.5 H (3.5-5.1) mmol/L Chloride (98-107) mmol/L BUN 49 H (7-17) mg/dL Creatinine 5.16 H (0.52-1.04) mg/dL Glucose 199 H (74-99) mg/dL POC Glucose (mg/dL) 200 H (75-99) mg/dL Plasma Lactic Acid Saad (0.7-2.0) mmol/L AST 47 H (14-36) U/L ALT (4-34) U/L Troponin I (0.000-0.034) ng/mL Total Protein 6.2 L (6.3-8.2) g/dL Albumin 3.3 L (3.5-5.0) g/dL Urine Protein (Negative) Urine Blood (Negative) Ur Leukocyte Esterase (Negative) Urine RBC (0-5) /hpf Urine WBC (0-5) /hpf Urine Bacteria (None) /hpf Urine Mucus (None) /hpf Microbiology - Last 24 Hours (Table) 02/12/22 09:45 Urine Culture - Preliminary Urine,Voided Assessment and Plan Plan: Acute kidney injury. The patient presented with acute kidney injury, hypogly cemia and hyperkalemia with metabolic acidosis. The patient underwent HD treatment for your hyperkalemia x2 . Noted the patient was taken a combination of shara inhibitors in the form of Zestoretic and she was also taking Aldactone outpatient basis. This could be a prerenal event with subsequent ATN. No intake of any nonsteroidal anti-inflammatory medications. The renal function continues to improve. The patient's potassium level is also improved. The patient is hemodynamically stable. The bicarb infusion has been discontinued and the patient is currently on normal saline at 60 mL an hour and she is producing excess amount of urine output. Episodic hypoglycemia, likely drug-induced, improved and the patient's blood sugar improved Non-anion gap metabolic acidosis, improved Acute hyperkalemia, improved Atrophic left kidney with a 7 mm right kidney lesion that needs to be further worked up for possibility of RCC at a later stage, evaluated by urology and this will need a surgical intervention at a later stage Acute elevation of troponin, could be a type II cardiac ischemia, no acute ischemic changes on EKG.. Obesity with a BMI 51.4 Diabetes mellitus maintained on a combination of oral hypoglycemics including Actos, metformin and glipizide Hypertension Hyperlipidemia degenerative arthritis Plan IV fluids with normal saline at the rate of 60 mL an hour, renal function continues to improve UA checked Monitor electrolytes and renal function and potassium levels Nephrology consultation appreciated Recieved hemodialysis x2 Stop the oral hypoglycemics and put the patient on sliding scale coverage Advance diet as tolerated tp regular carb consistent Heparin subcu for DVT prophylaxis 5000 units every 8 hours Obtain echocardiogram report as the echocardiogram was done this morning We'll continue to follow. She may transfer out of the intensive care unit at a later stage
[2022-02-13] MEDS: SODIUM CHLORIDE 0.9% 1,000 ML IV SCH (09:53)
--- NOTE | 2022-02-13 10:07 | P.PN ---
Subjective Patient seen in follow-up for acute kidney injury. Started on hemodialysis 02/11/2022. Currently receiving IV fluids. Oral intake fair. Nonoliguric. Hemodynamically stable. On room air. Wants to shower. Vital signs are stable. General: Awake and alert. No acute distress. HEENT: Head exam is unremarkable. LUNGS: Breath sounds decreased. HEART: Rate and Rhythm are regular. ABDOMEN: Soft, obese. EXTREMITITES: No edema. Objective - Vital Signs Vital signs: Vital Signs Temp 98.0 F 02/13/22 04:00 Pulse 100 02/13/22 09:30 Resp 14 02/13/22 09:30 BP 140/87 02/13/22 09:30 Pulse Ox 97 02/13/22 09:30 FiO2 Intake & Output 02/12/22 02/13/22 02/13/22 18:59 06:59 18:59 Intake Total 1705 1280 640 Output Total 2115 2220 350 Balance -410 -940 290 Weight 131.542 kg 143.3 kg Intake: Intake, IV Titration 1225 1100 280 Amount Dextrose 5% in Water 1, 125 000 ml @ 125 mls/hr IV . Q9H12M CAT with Sodium Bicarb (1 Meq/ml) 150 ml Rx#:[id number] Dextrose 5%-0.9% NaCl 1, 700 100 000 ml @ 100 mls/hr IV . Q10H CAT Rx#:[id number] Sodium Chloride 0.9% 1, 400 1000 280 000 ml @ 100 mls/hr IV . Q10H CAT Rx#:[id number] Oral 480 180 360 Output: Urine 2115 2220 350 Hemodialysis 0 Other: Voiding Method Indwelling Catheter Indwelling Catheter Indwelling Catheter # Bowel Movements 1 - Labs CBC & Chem 7: 02/13/22 06:29 02/13/22 06:29 Labs: Abnormal Lab Results - Last 24 Hours (Table) 02/12/22 02/12/22 02/12/22 Range/Units 09:45 10:05 10:05 MCHC 30.4 L (31.0-37.0) g/dL Potassium (3.5-5.1) mmol/L Chloride (98-107) mmol/L BUN (7-17) mg/dL Creatinine (0.52-1.04) mg/dL Glucose (74-99) mg/dL POC Glucose (mg/dL) (75-99) mg/dL Plasma Lactic Acid Saad (0.7-2.0) mmol/L AST (14-36) U/L ALT (4-34) U/L Troponin I 0.282 H* (0.000-0.034) ng/mL Total Protein (6.3-8.2) g/dL Albumin (3.5-5.0) g/dL Urine Protein 1+ H (Negative) Urine Blood Large H (Negative) Ur Leukocyte Esterase Moderate H (Negative) Urine RBC 86 H (0-5) /hpf Urine WBC 14 H (0-5) /hpf Urine Bacteria Rare H (None) /hpf Urine Mucus Rare H (None) /hpf 02/12/22 02/12/22 02/12/22 Range/Units 10:51 12:01 12:13 MCHC (31.0-37.0) g/dL Potassium 5.5 H (3.5-5.1) mmol/L Chloride 97 L (98-107) mmol/L BUN 70 H (7-17) mg/dL Creatinine 7.48 H* (0.52-1.04) mg/dL Glucose (74-99) mg/dL POC Glucose (mg/dL) 60 L (75-99) mg/dL Plasma Lactic Acid Saad 2.1 H* (0.7-2.0) mmol/L AST 57 H (14-36) U/L ALT 35 H (4-34) U/L Troponin I (0.000-0.034) ng/mL Total Protein (6.3-8.2) g/dL Albumin (3.5-5.0) g/dL Urine Protein (Negative) Urine Blood (Negative) Ur Leukocyte Esterase (Negative) Urine RBC (0-5) /hpf Urine WBC (0-5) /hpf Urine Bacteria (None) /hpf Urine Mucus (None) /hpf 02/12/22 02/12/22 02/12/22 Range/Units 12:41 13:16 16:19 MCHC (31.0-37.0) g/dL Potassium (3.5-5.1) mmol/L Chloride (98-107) mmol/L BUN (7-17) mg/dL Creatinine (0.52-1.04) mg/dL Glucose (74-99) mg/dL POC Glucose (mg/dL) 61 L 148 H 155 H (75-99) mg/dL Plasma Lactic Acid Saad (0.7-2.0) mmol/L AST (14-36) U/L ALT (4-34) U/L Troponin I (0.000-0.034) ng/mL Total Protein (6.3-8.2) g/dL Albumin (3.5-5.0) g/dL Urine Protein (Negative) Urine Blood (Negative) Ur Leukocyte Esterase (Negative) Urine RBC (0-5) /hpf Urine WBC (0-5) /hpf Urine Bacteria (None) /hpf Urine Mucus (None) /hpf 02/12/22 02/12/22 02/13/22 Range/Units 16:38 20:14 02:03 MCHC (31.0-37.0) g/dL Potassium (3.5-5.1) mmol/L Chloride (98-107) mmol/L BUN (7-17) mg/dL Creatinine (0.52-1.04) mg/dL Glucose (74-99) mg/dL POC Glucose (mg/dL) 242 H 213 H (75-99) mg/dL Plasma Lactic Acid Saad (0.7-2.0) mmol/L AST (14-36) U/L ALT (4-34) U/L Troponin I 0.193 H* (0.000-0.034) ng/mL Total Protein (6.3-8.2) g/dL Albumin (3.5-5.0) g/dL Urine Protein (Negative) Urine Blood (Negative) Ur Leukocyte Esterase (Negative) Urine RBC (0-5) /hpf Urine WBC (0-5) /hpf Urine Bacteria (None) /hpf Urine Mucus (None) /hpf 02/13/22 02/13/22 02/13/22 Range/Units 06:29 06:29 06:52 MCHC 29.5 L (31.0-37.0) g/dL Potassium 5.5 H (3.5-5.1) mmol/L Chloride (98-107) mmol/L BUN 49 H (7-17) mg/dL Creatinine 5.16 H (0.52-1.04) mg/dL Glucose 199 H (74-99) mg/dL POC Glucose (mg/dL) 200 H (75-99) mg/dL Plasma Lactic Acid Saad (0.7-2.0) mmol/L AST 47 H (14-36) U/L ALT (4-34) U/L Troponin I (0.000-0.034) ng/mL Total Protein 6.2 L (6.3-8.2) g/dL Albumin 3.3 L (3.5-5.0) g/dL Urine Protein (Negative) Urine Blood (Negative) Ur Leukocyte Esterase (Negative) Urine RBC (0-5) /hpf Urine WBC (0-5) /hpf Urine Bacteria (None) /hpf Urine Mucus (None) /hpf Microbiology - Last 24 Hours (Table) 02/12/22 09:45 Urine Culture - Preliminary Urine,Voided Assessment and Plan Plan: Assessment: 1. Acute kidney injury secondary to ATN secondary to hypotension and nonsteroidals further worsened with the use of DORIS inhibitor and diuretics. Creatinine >9 on admission - started on hemodialysis 02/11/2022. Nonoliguric. No hydronephrosis noted on CAT scan. 2. Hyperkalemia secondary to acute kidney injury, NSAIDs, metabolic acidosis, spironolactone and lisinopril. Improved postdialysis. This morning sample was hemolyzed. 3. Metabolic acidosis secondary to acute kidney injury, lactic acidosis and use of metformin. Improved. 4. Diabetes mellitus. 5. Benign hypertension. Currently controlled. 6. Right kidney lesion. Mass versus inflammation. Seen by urology. May require surgical intervention. 7. Atrophic left kidney. Plan: Decreased rate of normal saline. Repeat potassium level. Follow-up cultures. Hold hemodialysis today. Continue to assess on daily basis. Avoid nephrotoxins. Continue to monitor renal function and urine output. UPC 2.0 g - check serologies. Continue to hold diuretics as well as lisinopril for now. Okay to DC Ventura catheter from nephrology standpoint. Continue to monitor strict I's and os. Follow-up echocardiogram.
--- NOTE | 2022-02-13 10:21 | CA ---
Transthoracic Echo Report Name: Candi Stafford Age: 56 Gender: F : 1965 Exam Date: 02/13/2022 07:45 Exam Location: [facility] Ht (in): 63 Wt (lb): 315 Ordering Physician: Gurdeep Moreira MD Attending/Referring Phys: Drafter Mechanical Carolina Grijalva RDCS Procedure CPT: Indications: Positive troponin Cardiac Hx: Technical Quality: Technically difficult study Contrast 1: Lumason Total Dose (mL): 1 Contrast 2: Total Dose (mL): MEASUREMENTS (Male / Female) Normal Values 2D ECHO LV Diastolic Diameter PLAX 4.1 cm 4.2 - 5.9 / 3.9 - 5.3 cm LV Systolic Diameter PLAX 2.3 cm IVS Diastolic Thickness 1.6 cm 0.6 - 1.0 / 0.6 - 0.9 cm LVPW Diastolic Thickness 1.5 cm 0.6 - 1.0 / 0.6 - 0.9 cm LV Relative Wall Thickness 0.7 RV Internal Dim ED PLAX 2.5 cm M-MODE Aortic Root Diameter MM 3.1 cm LA Systolic Diameter MM 3.2 cm LA Ao Ratio MM 1.0 AV Cusp Separation MM 1.5 cm DOPPLER AV Peak Velocity 68.0 cm/s AV Peak Gradient 1.8 mmHg MV Area PHT 4.0 cm??? MR Peak Velocity 96.5 cm/s MR Peak Gradient 3.7 mmHg Mitral E Point Velocity 28.3 cm/s Mitral A Point Velocity 34.0 cm/s Mitral E to A Ratio 0.8 MV Deceleration Time 190.5 ms TR Peak Velocity 142.2 cm/s TR Peak Gradient 8.1 mmHg Right Ventricular Systolic Press 13.1 mmHg FINDINGS Left Ventricle Severely increased septal wall thickness. Moderately increased posterior wall thickness. Left ventricular ejection fraction is estimated at 55-60_%. Left ventricular cavity size normal. Right Ventricle The right ventricle is normal in size and function. Right Atrium The right atrium is normal in size. Left Atrium The left atrium is normal in size. Mitral Valve Structurally normal mitral valve without significant stenosis or prolapse. There is trace mitral regurgitation. Mitral valve thickened. Aortic Valve Structurally normal aortic valve without significant sclerosis or stenosis. There is no aortic regurgitation. Tricuspid Valve Structurally normal tricuspid valve without significant stenosis. Pulmonary artery systolic pressure is normal. Trace tricuspid regurgitation. Pulmonic Valve Structurally normal pulmonic valve without significant stenosis. There is no pulmonic regurgitation. Pericardium Normal pericardium without effusion. Aorta Normal aortic root dimension. CONCLUSIONS #1. Normal left ventricle size with preserved LV function and moderate concentric hypertrophy. #2. Normal valve structure and function Previewed by: Dr. Génesis Branch MD (Electronically Signed) Final Date: 13 February 2022 10:20
--- NOTE | 2022-02-13 10:34 | P.CRDCN ---
History of Present Illness History of present illness: This is Dr. Merritt dictating a consult on this patient The patient was interviewed and examined IMPRESSION / ASSESSMENT: Patient presented with symptoms of uremia Denied any cardiac symptoms to me and to Dr. Flores Unclear why troponins were drawn when she was hypokalemic and in acute renal failure She has moderate left ventricle hypertrophy with preserved systolic function 2-D echo, no valvular abnormalities Diabetes type 2 She wasn't spironolactone at home 50 mrem by mouth daily She is on lisinopril hydrochlorothiazide 10/12.5 g twice a day She is also on diclofenac 75 mg twice daily She is already on aspirin and atorvastatin PLAN: From a cardiac standpoint troponins are not indicated. 400 history there is no cause for immediate concern although she does have risk factors of type 2 diabetes However this lady presented to the hospital with acute renal failure and sympto ms of uremia She was hypokalemic She has a history of hypertension and morbid obesity and left ventricular hypertrophy with preserved systolic function She is already on statins and aspirin She is on antihypertensive therapy with lisinopril, hydrochlorothiazide and spironolactone She also takes diclofenac Suggest continue management of hyperkalemia and renal failure Continue aspirin and statins and antihypertensive therapy once her renal function improves No further cardiac workup needed at this point The elevation in troponins was in the setting of creatinine greater than 7, acute renal failure HPI 56-year-old morbidly obese female transferred from [facility] for acute renal failure and hyperkalemia She was treated for hyperkalemia She denies any chest discomfort dizziness lightheadedness Her main symptoms were weakness nausea abdominal pain to me She denied any cardiac symptoms No chest pain no angina Symptoms EKG does not show any acute ST-T abnormalities ROS: No fever chills or rigors, no cough, phlegm or expectoration, no nausea, vomiting or diarrhea, no hematuria, dysuria, no musculoskeletal complaints, no strokes or seizures, no skin lesions. EXAMINATION: Sinus tachycardia pulse rate about 100 beats a minute Blood pressure 140/87 mmHg Breath sounds are reduced bilaterally Heart sounds S1 and S2 are soft and distant REVIEW OF LABS, ECG & MEDICAL DATA 2-D echo shows severely increased septal wall thickness with moderately increased posterior wall thickness and ejection fraction greater than 50-60% hemoglobin 11.8 Sodium 137 potassium currently 5.5 BUN 49 and creatinine 5.2 Creatinine 7.14, 7.48 and 9 programmed to 5.16 Lactic acid elevated Troponin 1.9 0.193 Twelve-lead EKG shows sinus tachycardia 130 beats a minute normal ST segments in the precordial leads. Inversion in inferior leads Past Medical History Past Medical History: Diabetes Mellitus, Hypertension History of Any Multi-Drug Resistant Organisms: None Reported Past Surgical History: Orthopedic Surgery Additional Past Surgical History / Comment(s): bone spur right heel surgery, right meniscus surgery Past Anesthesia/Blood Transfusion Reactions: No Reported Reaction Past Psychological History: No Psychological Hx Reported Smoking Status: Former smoker Past Alcohol Use History: None Reported Past Drug Use History: None Reported - Past Family History Sister(s) Family Medical History: Diabetes Mellitus Additional Family Medical History / Comment(s): Both sisters have Type II diabetetes Mother Family Medical History: Hypertension Additional Family Medical History / Comment(s): Currently in remission from breast cancer Father Additional Family Medical History / Comment(s): no history reported, in car accident Medications and Allergies Home Medications Medication Instructions Recorded Confirmed Type glipiZIDE [Glucotrol] 10 mg PO AC-BID 08/25/15 02/11/22 History metFORMIN HCL [Glucophage] 1,000 mg PO BID 08/25/15 02/11/22 History Aspirin 81 mg PO DAILY #30 chewable 08/27/15 02/11/22 Rx Atorvastatin [Lipitor] 80 mg PO HS #30 tab 08/27/15 02/11/22 Rx Cyclobenzaprine [Flexeril] 10 mg PO TID PRN 02/11/22 02/11/22 History Diclofenac Sodium [Voltaren] 75 mg PO BID 02/11/22 02/11/22 History Gabapentin 300 mg PO BID 02/11/22 02/11/22 History HYDROcodone/APAP 5-325MG [[place] 1 tab PO Q6H PRN 02/11/22 02/11/22 History 5-325] Lisinopril-Hctz 10-12.5 mg 1 tab PO BID 02/11/22 02/11/22 History [Zestoretic 10-12.5] Multivitamins, Thera [Multivitamin 1 tab PO DAILY 02/11/22 02/11/22 History (formulary)] Pioglitazone [Actos] 30 mg PO DAILY 02/11/22 02/11/22 History Spironolactone 50 mg PO DAILY 02/11/22 02/11/22 History Allergies Allergy/AdvReac Type Severity Reaction Status Date / Time ibuprofen Allergy Rash/Hives Verified 02/11/22 14:47 Physical Exam Vitals: Vital Signs Temp Pulse Resp BP BP Pulse Ox 02/13/22 10:00 98.3 F 100 26 H 140/87 96 02/13/22 09:30 100 14 140/87 97 02/13/22 09:00 95 16 96 02/13/22 08:30 97 13 97 02/13/22 08:00 102 H 18 170/71 97 02/13/22 07:30 99 14 170/71 98 02/13/22 07:00 92 16 104/53 97 02/13/22 06:30 96 16 104/53 96 02/13/22 06:00 83 13 114/57 94 L 02/13/22 05:30 92 14 114/57 93 L 02/13/22 05:00 84 12 146/73 95 02/13/22 04:30 86 13 146/73 93 L 02/13/22 04:00 98.0 F 96 17 129/64 95 02/13/22 03:30 89 14 129/64 93 L 02/13/22 03:00 89 15 123/68 94 L 02/13/22 02:30 93 13 123/68 92 L 02/13/22 02:00 98 14 120/60 96 02/13/22 01:30 95 14 120/60 94 L 02/13/22 01:00 92 14 120/60 95 02/13/22 00:30 91 14 115/68 93 L 02/13/22 00:00 98.0 F 96 14 135/65 93 L 02/12/22 23:46 99 16 135/65 94 L 02/12/22 23:30 100 14 135/65 94 L 02/12/22 23:00 102 H 14 153/70 94 L 02/12/22 22:30 94 14 153/70 95 02/12/22 22:00 75 12 118/67 95 02/12/22 21:30 91 12 118/67 96 02/12/22 21:00 108 H 18 135/93 95 02/12/22 20:30 101 H 14 135/93 94 L 02/12/22 20:00 98.3 F 98 15 123/69 93 L 02/12/22 19:30 107 H 16 123/69 95 02/12/22 19:00 103 H 15 95 02/12/22 18:30 103 H 12 96 02/12/22 18:00 110 H 10 L 02/12/22 17:30 105 H 18 75 L 02/12/22 17:00 109 H 18 02/12/22 16:30 98.4 F 108 H 26 H 152/62 95 02/12/22 16:27 18 130/68 02/12/22 16:00 96 14 118/73 91 L 02/12/22 15:30 94 15 115/72 02/12/22 15:00 97 12 123/75 77 L 02/12/22 14:30 99 23 120/76 50 L 02/12/22 14:00 99 20 117/69 02/12/22 13:30 109 H 26 H 104/72 94 L 02/12/22 13:00 105 H 14 120/66 02/12/22 12:30 108 H 14 120/66 95 02/12/22 12:00 99 20 108/63 94 L 02/12/22 11:30 72 H 108/63 95 02/12/22 11:00 102 H 11 L 95 Intake and Output 02/12/22 02/13/22 02/13/22 22:59 06:59 14:59 Intake Total 1060 980 640 Output Total 1450 1495 350 Balance -390 -515 290 Intake: Intake, IV Titration 700 800 280 Amount Dextrose 5%-0.9% NaCl 1, 500 000 ml @ 100 mls/hr IV . Q10H CAT Rx#:[id number] Sodium Chloride 0.9% 1, 200 800 280 000 ml @ 100 mls/hr IV . Q10H [facility] Rx#:[id number] Oral 360 180 360 Output: Urine 1450 1495 350 Hemodialysis 0 Other: Voiding Method Indwelling Catheter Indwelling Catheter Indwelling Catheter # Bowel Movements 1 Weight 143.3 kg Results 02/13/22 06:29 02/13/22 06:29 Cardiac Enzymes 02/12/22 02/12/22 02/12/22 Range/Units 10:05 10:51 16:38 AST 57 H (14-36) U/L Troponin I 0.282 H* 0.193 H* (0.000-0.034) ng/mL 02/13/22 Range/Units 06:29 AST 47 H (14-36) U/L Troponin I (0.000-0.034) ng/mL CBC 02/12/22 02/13/22 Range/Units 10:05 06:29 WBC 8.7 6.5 (3.8-10.6) k/uL RBC 4.34 4.02 (3.80-5.40) m/uL Hgb 13.0 11.8 (11.4-16.0) gm/dL Hct 42.8 40.0 (34.0-46.0) % Plt Count 290 244 (150-450) k/uL Comprehensive Metabolic Panel 02/12/22 02/13/22 Range/Units 10:51 06:29 Sodium 140 137 (137-145) mmol/L Potassium 5.5 H 5.5 H (3.5-5.1) mmol/L Chloride 97 L 102 (98-107) mmol/L Carbon Dioxide 26 24 (22-30) mmol/L BUN 70 H 49 H (7-17) mg/dL Creatinine 7.48 H* 5.16 H (0.52-1.04) mg/dL Glucose 87 199 H (74-99) mg/dL Calcium 8.9 8.7 (8.4-10.2) mg/dL AST 57 H 47 H (14-36) U/L ALT 35 H 34 (4-34) U/L Alkaline Phosphatase 118 94 (38-126) U/L Total Protein 7.2 6.2 L (6.3-8.2) g/dL Albumin 4.1 3.3 L (3.5-5.0) g/dL Current Medications Generic Name Dose Route Start Last Admin Trade Name Freq PRN Reason Stop Dose Admin Hydrocodone Bitart/Acetaminophen 1 each 02/12/22 09:25 Hydrocodone/Apap 5-325mg 1 Each Tab PO Q6H PRN Pain Al Hydroxide/Mg Hydroxide 30 ml 02/12/22 18:54 02/12/22 18:59 Mag Hydrox/Al Hydrox/Simeth 30 Ml Cup PO 30 ml Q4HR PRN Administration GI Upset Atorvastatin Calcium 80 mg 02/12/22 21:00 02/12/22 20:36 Atorvastatin 80 Mg Tab PO 80 mg HS CAT Administration Enoxaparin Sodium 30 mg 02/12/22 21:00 02/12/22 20:36 Enoxaparin 30 Mg/0.3 Ml Syringe SQ 30 mg Q24H CAT Administration Gabapentin 300 mg 02/13/22 21:00 Gabapentin 300 Mg Cap PO HS CAT Sodium Chloride 1,000 mls @ 60 mls/hr 02/13/22 00:01 02/13/22 09:53 Saline 0.9% IV 60 mls/hr .[id number] CAT Administration Insulin Aspart 0 unit 02/12/22 12:30 02/13/22 06:57 Insulin Aspart (Novolog) 100 Unit/Ml Vial SQ 3 unit ACHS CAT Administration Protocol Insulin Detemir 12 unit 02/12/22 21:00 02/12/22 20:46 Insulin Detemir (Levemir) 100 Unit/Ml Syr SQ Not Given HS CAT Midodrine 5 mg 02/11/22 18:20 Midodrine 5 Mg Tab PO AC-BID PRN Hypotension Multivitamins 1 each 02/13/22 09:00 02/13/22 08:16 Multivitamins, Thera 1 Each Tab PO 1 each DAILY CAT Administration Naloxone HCl 0.2 mg 02/11/22 15:56 Naloxone 0.4 Mg/Ml 1 Ml Vial IV Q2M PRN Opioid Reversal Pantoprazole Sodium 40 mg 02/12/22 07:30 02/13/22 06:57 Pantoprazole 40 Mg Tablet PO 40 mg AC-BRKFST CAT Administration Intake and Output 02/12/22 02/13/22 02/13/22 22:59 06:59 14:59 Intake Total 1060 980 640 Output Total 1450 1495 350 Balance -390 -515 290 Intake: Intake, IV Titration 700 800 280 Amount Dextrose 5%-0.9% NaCl 1, 500 000 ml @ 100 mls/hr IV . Q10H [facility] Rx#:[id number] Sodium Chloride 0.9% 1, 200 800 280 000 ml @ 100 mls/hr IV . Q10H [facility] Rx#:[id number] Oral 360 180 360 Output: Urine 1450 1495 350 Hemodialysis 0 Other: Voiding Method Indwelling Catheter Indwelling Catheter Indwelling Catheter # Bowel Movements 1 Weight 143.3 kg 02/13/22 06:29 02/13/22 06:29
[2022-02-13 11:49] LABS: Glucose,Whole Blood 232 mg/dL (75-99)
[2022-02-13 13:00] LABS: Potassium 4.9 mmol/L (3.5-5.1)
[2022-02-13 16:50] LABS: Glucose,Whole Blood 189 mg/dL (75-99)
--- NOTE | 2022-02-13 17:57 | P.PN ---
Progress Note - Text Progress Note Date: 02/13/22 Chief Complaint: Confusion This is a 56-year-old patient, follows with Dr. Erickson Dudley. Patient been a diabetic for about 10 years. Denies any complications from her diabetes that she knows of. Does follow with the family doctor. Has underlying hypertension. She does take oral hypoglycemics. Since the last 1 week she has been feeling a bit weak and tired. Her sister sent her to [facility]. Found to be hypoglycemic. Also severe acute kidney injury. Creatinine was 9.3 and potassium was found to be 6.4. Patient did receive IV calcium and IV bicarbonate was transferred here. Dr. Toro from vascular was called last night and he put in a dialysis catheter. Followed by hemodialysis. Patient has been making urine. Admitted to the ICU. Patient denied any fever and chills. Denies any respiratory or urinary symptoms. She is not entirely clear about the events leading to the other hospital. She said she had been getting a bit confused because of hypoglycemia. That she was told Admitted with acute metabolic/uremic encephalopathy/acute kidney injury from ATN from medications and hypertension/severe hyperkalemia/hypoglycemia from oral hypoglycemics/metabolic acidosis. Started on hemodialysis. Admitted to ICU February 8: Oral intake better. Up in a chair. Receive dialysis yesterday. No dialysis today. Making urine. We'll increase Levemir to 20 units at night. Discussed with patient. Getting IV fluids. Active Medications Hydrocodone Bitart/Acetaminophen (Hydrocodone/Apap 5-325mg 1 Each Tab) 1 each PO Q6H PRN PRN Reason: Pain Al Hydroxide/Mg Hydroxide (Mag Hydrox/Al Hydrox/Simeth 30 Ml Cup) 30 ml PO Q4HR PRN PRN Reason: GI Upset Last Admin: 02/12/22 18:59 Dose: 30 ml Atorvastatin Calcium (Atorvastatin 80 Mg Tab) 80 mg PO HS CAT Last Admin: 02/12/22 20:36 Dose: 80 mg Enoxaparin Sodium (Enoxaparin 30 Mg/0.3 Ml Syringe) 30 mg SQ Q24H CAT Last Admin: 02/12/22 20:36 Dose: 30 mg Gabapentin (Gabapentin 300 Mg Cap) 300 mg PO HS [facility] Sodium Chloride (Saline 0.9%) 1,000 mls @ 60 mls/hr IV .[id number] [facility] Last Admin: 02/13/22 09:53 Dose: 60 mls/hr Insulin Aspart (Insulin Aspart (Novolog) 100 Unit/Ml Vial) 0 unit SQ ACHS CAT; Protocol Last Admin: 02/13/22 12:52 Dose: 5 unit Insulin Aspart (Insulin Aspart (Novolog) 100 Unit/Ml Vial) 3 unit SQ AC-TID CAT Insulin Detemir (Insulin Detemir (Levemir) 100 Unit/Ml Syr) 20 unit SQ HS CAT Midodrine (Midodrine 5 Mg Tab) 5 mg PO AC-BID PRN PRN Reason: Hypotension Multivitamins (Multivitamins, Thera 1 Each Tab) 1 each PO DAILY CAT Last Admin: 02/13/22 08:16 Dose: 1 each Naloxone HCl (Naloxone 0.4 Mg/Ml 1 Ml Vial) 0.2 mg IV Q2M PRN PRN Reason: Opioid Reversal Pantoprazole Sodium (Pantoprazole 40 Mg Tablet) 40 mg PO AC-BRKFST [facility] Last Admin: 02/13/22 06:57 Dose: 40 mg Past medical history to include: Diabetes, hypertension Social history: Lives with her mother and sister. No smoking. Alcohol occasionally. Family history: Hypertension, breast cancer Physical examination: VITAL SIGNS: 98.4, 72, 18, 131 with 71, 95% room air GENERAL: Up in a chair, awake EYES: Pupils equal. Conjunctiva normal. HEENT: External appearance of nose and ears normal, oral cavity grossly normal. NECK: JVD unable to assess; masses not palpable. HEART: Distance heart sound; no edema. LUNGS: Respiratory rate normal; distant breath sounds. ABDOMEN: Soft, nontender, liver spleen not palpable, no masses palpable. Right femoral dialysis catheter PSYCH: Alert and oriented x3; mood and affect normal. MUSCULOSKELETAL:No Clubbing/cyanosis;muscles-grossly intact INVESTIGATIONS, reviewed in the clinical context: 2-D echocardiogram: EF 55-60%. Moderately increased posterior wall thickness. No wall motion abnormality. February 13: White count 6.5 hemoglobin 11.8 platelets 244 potassium 5. 5 repeat 4.9 BUN 49 creatinine 5.16 February 12: White count 8.2 hemoglobin 12.1. History 95 potassium 5.7 BUN 74 creatinine 7.12 Admission labs: EKG tracing personally reviewed by me-normal sinus rhythm. rate 103. Nonspe cific ST segment changes Chest x-ray film personally reviewed by me-no obvious infiltrate White count 10.7 hemoglobin 11.8. History 96 potassium 6.4. 93 creatinine 9.29. Glucose 42 lactic acid 6.5 troponin I 1.9 Hepatitis B screen: Negative Assessment and plan: -Acute metabolic/uremic encephalopathy from acute kidney injury: Back to -Acute kidney injury combination of prerenal from decreased oral intake and ATN. Patient has been on doris inhibitors, NSAIDs and diuretics. Emergent hemodialysis carried out Had dialysis yesterday. None today. -Severe hyperkalemia from acute kidney injury. Also patient and DORIS inhibitor.: Slow to respond Patient did receive bicarbonate calcium at the outside hospital.. Hemodialyzed . Renal diet -Diabetes mellitus type 2, uncontrolled with hypoglycemia. Patient has been chronically on oral hypoglycemics. Hold for now. Increase Levemir to 20 units tonight. Patient eating better. -Hypoglycemia from decreased oral intake and patient being on Glucotrol and oral hypoglycemics. D5 0.45: Better -Morbid obesity BMI 51.4 Weight loss measures. Dietitian. -Metabolic acidosis from acute kidney injury: Corrected Follow bicarb. -Diabetic peripheral neuropathy: Patient has no pain Neurontin cutback to 300 mg daily at bedtime. -Elevated troponin in the setting of acute kidney injury. Hemodynamic mismatch Denied chest pain. No further workup. -Essential hypertension. Hold antihypertensive.. Hold oral hypoglycemic. No dialysis today.. No further workup per cardiology. Levemir 20 units. Renal diet..
[2022-02-13 20:25] LABS: Glucose,Whole Blood 190 mg/dL (75-99)
[2022-02-13] MEDS: GABAPENTIN 300 MG CAP PO SCH (20:56)
[2022-02-13] MEDS: ATORVASTATIN 80 MG TAB PO SCH (20:56)
[2022-02-13] MEDS ORDERED: INSULIN DETEMIR (LEVEMIR) 100 UNIT/ML SYR SQ SCH (21:00)
[2022-02-13 23:45] LABS: Hepatitis A Antibody IgM Nonreactive (Nonreactive); Hepatitis B Core IgM Nonreactive (Nonreactive); Hepatitis B Surface Antigen Nonreactive (Nonreactive); Hepatitis C IgG Antibody Nonreactive (Nonreactive)
[2022-02-14] MEDS: HEPARIN SODIUM,PORCINE/PF 5,000 UNIT/0.5 ML SYRINGE SQ SCH ×3 (00:37→16:43)
[2022-02-14 01:32] LABS: Anti-DNA, DS unit <1.0 IU/mL; DNA Double-Stranded NEGATIVE (NEGATIVE)
[2022-02-14 02:54] LABS: Glucose,Whole Blood 155 mg/dL (75-99)
[2022-02-14 06:58] LABS: Glucose,Whole Blood 140 mg/dL (75-99)
[2022-02-14] MEDS: INSULIN ASPART (NovoLOG) 100 UNIT/ML VIAL SQ SCH ×7 (07:09→20:37)
[2022-02-14] MEDS: PANTOPRAZOLE 40 MG TABLET PO SCH (07:11)
[2022-02-14 08:06] LABS: Protein, Total 7.5 g/dL (6.2-8.2)
[2022-02-14] MEDS: SODIUM CHLORIDE 0.9% 1,000 ML IV SCH ×2 (08:27→16:44)
[2022-02-14] MEDS: MULTIVITAMINS, THERA 1 EACH TAB PO SCH (09:09)
--- NOTE | 2022-02-14 09:49 | P.PN ---
Subjective Patient seen in follow-up for acute kidney injury. Started on hemodialysis 02/11/2022. Last hemodialysis 02/12/2022. Currently receiving IV fluids. Oral intake fair. Nonoliguric. Hemodynamically stable. On room air. No active complaints. Vital signs are stable. General: Awake and alert. No acute distress. HEENT: Head exam is unremarkable. LUNGS: Breath sounds decreased. HEART: Rate and Rhythm are regular. ABDOMEN: Soft, obese. EXTREMITITES: Trace edema. Objective - Vital Signs Vital signs: Vital Signs Temp 98.2 F 02/14/22 04:40 Pulse 87 02/14/22 04:40 Resp 18 02/14/22 04:40 BP 153/83 02/14/22 04:40 Pulse Ox 95 02/14/22 00:00 FiO2 Intake & Output 02/13/22 02/14/22 02/14/22 18:59 06:59 18:59 Intake Total 1720 540 240 Output Total 1150 450 450 Balance 570 90 -210 Weight 143.3 kg Intake: Intake, IV Titration 760 540 240 Amount Sodium Chloride 0.9% 1, 340 000 ml @ 100 mls/hr IV . Q10H [facility] Rx#:[id number] Sodium Chloride 0.9% 1, 420 540 240 000 ml @ 60 mls/hr IV . [id number] CAT Rx#:[id number] Oral 960 Output: Urine 1150 450 450 Other: Voiding Method Indwelling Catheter Toilet # Bowel Movements 1 - Labs CBC & Chem 7: 02/13/22 06:29 02/13/22 11:44 Labs: Abnormal Lab Results - Last 24 Hours (Table) 02/13/22 02/13/22 02/13/22 Range/Units 11:44 11:47 16:48 POC Glucose (mg/dL) 232 H 189 H (75-99) mg/dL Complement C4 60.3 H (10.0-53.0) mg/dL 02/13/22 02/14/22 02/14/22 Range/Units 20:23 02:51 06:56 POC Glucose (mg/dL) 190 H 155 H 140 H (75-99) mg/dL Complement C4 (10.0-53.0) mg/dL Microbiology - Last 24 Hours (Table) 02/12/22 09:45 Urine Culture - Final Urine,Voided 02/12/22 10:12 Blood Culture - Preliminary Blood No Growth after 24 hours Assessment and Plan Plan: Assessment: 1. Acute kidney injury secondary to ATN secondary to hypotension and nonsteroidals further worsened with the use of DORIS inhibitor and diuretics. Creatinine >9 on admission - started on hemodialysis 02/11/2022. Nonoliguric. No hydronephrosis noted on CAT scan. Last hemodialysis 02/12/2022. 2. Hyperkalemia secondary to acute kidney injury, NSAIDs, metabolic acidosis, spironolactone and lisinopril. Improved postdialysis. 3. Metabolic acidosis secondary to acute kidney injury, lactic acidosis and use of metformin. Improved. 4. Diabetes mellitus. 5. Benign hypertension. 6. Right kidney lesion. Mass versus inflammation. Seen by urology. May require surgical intervention. 7. Atrophic left kidney. Plan: Maintain IV hydration. Follow-up cultures. Continue to assess need for renal replacement therapy. Follow up morning labs. Currently does not have dialysis access. Femoral catheter fell out yesterday. Avoid nephrotoxins. Continue to monitor renal function and urine output. UPC 2.0 g -follow-up serologies - negative so far. Continue to hold diuretics as well as lisinopril for now. EF preserved. Hold midodrine for systolic blood pressure above 110. Add hydralazine 25 mg 3 times daily. Hold for systolic blood pressure less than 125.
--- NOTE | 2022-02-14 09:59 | P.PN ---
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 The patient is diabetic and she has hypertension. She has been maintained on a combination of Glucophage, Glucotrol, and Actos. The patient was feeling weak and she was having generalized fatigue and episodes of hypoglycemia. She was seen at the [facility] emergency department and she was found also to be in acute kidney injury. The creatinine was as high as 9.3 and the potassium was as high as 6.4. I even her that the potassium was even higher at [facility]. The patient was given calcium and bicarb and following that she was transferred to our hospital. Initial blood work here in our hospital showed a sodium of 139, potassium of 6.4, serum bicarbonate 13, BUN is 93 with a creatinine of 9.2, lactic acid level was 6.5 which dropped down to 4.1, her troponin was 1.9, and the CBC showed a white cell count of 10.7 with a hemoglobin 11.8 and platelet count of 296. She was still having episodes of hypoglycemia and she received a total of 3 doses of D50. She was started on IV fluids and currently she is on a normal saline at the rate of 100 mL an hour. Earlier to that she was on a bicarb infusion at the rate of 125 mL an hour. Her serum bicarbonate improve this morning is up to 26. She was given further potassium treatment yesterday and she underwent dialysis after inserting a temporary dialysis catheter in her right groin. She received a hemodialysis session yesterday. She receive no ultrafiltration.. She is currently on room air oxygen. She does have chronic lower extremity edema. She is hemodynamically stable. Ventura catheter is in place and the patient is producing excellent amount of urine output. The repeat creatinine today is down to 7.12. Repeat potassium level is down to 5.7. No nausea. No vomiting. No emesis. No further episodes of hypoglycemia. She is tolerating oral diet. CAT scan of the abdomen and pelvis was done. The patient has an atrophic left kidney. Right kidney showed a 7 mm lesion which also raised the suspicion for an underlying RCC. A contrast enhanced CAT scan will be needed later stage. There is also 3 mm nonobstructive calculus in the lower pole of the right kidney. No 70 kenney nary artery disease. No history of any chest pain. EKG showing a normal sinus rhythm. No acute ST segment changes. The patient is fully vaccinated for COVID 19 02/13/2022, I'm seeing the patient for a follow-up. The patient has no specific complaints for which she continues to improve. She received another session of hemodialysis yesterday and no fluid was removed and she is doing well in terms of her electrolyte balance. She was seen by urology and nephrology pH is making excellent urine output. She produced approximately 4.3 L of urine output yesterday and she remains in a negative fluid balance for now. Meanwhile, the patient was seen by urology. This is regarding the lesion that was seen on her right kidney. Based on urology is consultation, the patient will need outpatient follow-up regarding his abnormal findings. This right lower pole kidney lesion is probably malignant based on the CAT scan and ultrasound characteristics. This will be dealt at a later stage on outpatient basis. Meanwhile, the patient is currently on IV fluids at 60 mL an hour of normal saline. Electrolytes from today show a sodium of 137, BUN is 49 with a creatinine of 5.1 and the potassium level is at 5.5. The white cell count is at 6.5 with a hemoglobin of 11.8. A urinalysis was obtained yesterday and it showed 14 WBCs, 86 RBCs and +1 protein. 9 2021, the patient is on room air oxygen. She is producing adequate amount of urine output. She has a Ventura catheter in place. Blood work and electrolytes are still pending for now and of interest will be her follow-up renal function. She has produced approximately 4.3 L of urine output on 02/13/2022 and another 1.6 L following that. No labs are available from today. No episodes of hypoglycemia in the patient's blood sugars at 140 and oral hypoglycemics have been discontinued and the patient is taking only sliding scale insulin coverage. The patient is sitting up on a chair. She is calm and comfortable. Echo of the heart showed an ejection fraction of 55-60% and there was severely increased septal wall thickness probably related to chronic hypertension. The aortic and the mitral valves were structurally within normal limits. Objective - Vital Signs Vital signs: Vital Signs Temp 98.2 F 02/14/22 04:40 Pulse 87 02/14/22 04:40 Resp 18 02/14/22 04:40 BP 153/83 02/14/22 04:40 Pulse Ox 95 02/14/22 00:00 FiO2 Intake & Output 02/13/22 02/14/22 02/14/22 18:59 06:59 18:59 Intake Total 1720 540 240 Output Total 1150 450 450 Balance 570 90 -210 Weight 143.3 kg Intake: Intake, IV Titration 760 540 240 Amount Sodium Chloride 0.9% 1, 340 000 ml @ 100 mls/hr IV . Q10H CAT Rx#:[id number] Sodium Chloride 0.9% 1, 420 540 240 000 ml @ 60 mls/hr IV . [id number] CAT Rx#:[id number] Oral 960 Output: Urine 1150 450 450 Other: Voiding Method Indwelling Catheter Toilet Toilet # Bowel Movements 1 - Exam General appearance: alert, obese, other (drowsy at times), body mass index is 51.4 and the patient is awake and alert and breathing is nonlabored patient sitting up on a chair and she is coughing comfortable. Head exam: Present: atraumatic, normocephalic, normal inspection Eye exam: Present: normal appearance, PERRL, EOMI. Absent: scleral icterus, conjunctival injection, periorbital swelling ENT exam: Present: normal exam, mucous membranes moist Neck exam: Present: normal inspection. Absent: tenderness, meningismus, lymphadenopathy Respiratory exam: Present: normal lung sounds bilaterally. Absent: respiratory distress, wheezes, rales, rhonchi, stridor Cardiovascular Exam: Present: regular rate, normal rhythm, normal heart sounds. Absent: systolic murmur, diastolic murmur, rubs, gallop, clicks GI/Abdominal exam: Present: soft, normal bowel sounds. Absent: distended, tenderness, guarding, rebound, rigid External exam: Present: other (Ventura catheter intact with clear yellow urine adequate output noted) Extremities exam: Absent: pedal edema, joint swelling Neurological exam: Present: alert, oriented X3, CN II-XII intact Psychiatric exam: Present: normal affect, normal mood Skin exam: Present: other (Excoriation noted under pannus) - Labs CBC & Chem 7: 02/13/22 06:29 02/13/22 11:44 Labs: Abnormal Lab Results - Last 24 Hours (Table) 02/13/22 02/13/22 02/13/22 Range/Units 11:44 11:47 16:48 POC Glucose (mg/dL) 232 H 189 H (75-99) mg/dL Complement C4 60.3 H (10.0-53.0) mg/dL 02/13/22 02/14/22 02/14/22 Range/Units 20:23 02:51 06:56 POC Glucose (mg/dL) 190 H 155 H 140 H (75-99) mg/dL Complement C4 (10.0-53.0) mg/dL Microbiology - Last 24 Hours (Table) 02/12/22 09:45 Urine Culture - Final Urine,Voided 02/12/22 10:12 Blood Culture - Preliminary Blood No Growth after 24 hours Assessment and Plan Plan: Acute kidney injury. The patient presented with acute kidney injury, hypoglycemia and hyperkalemia with metabolic acidosis. The patient underwent HD treatment for your hyperkalemia x2 . Noted the patient was taken a combination of shara inhibitors in the form of Zestoretic and she was also taking Aldactone outpatient basis. We came to find out that the patient was also taking diclofenac on outpatient basis. As such, this is probably a drug induced ATN and the patient is improving for now with excellent urine output. Awaiting labs from today. Labs are still pending for now. Left-sided. Episodic hypoglycemia, likely drug-induced, improved and the patient's blood sugar improved Non-anion gap metabolic acidosis, improved Acute hyperkalemia, improved Atrophic left kidney with a 7 mm right kidney lesion that needs to be further worked up for possibility of RCC at a later stage, evaluated by urology and this will need a surgical intervention at a later stage Acute elevation of troponin, could be a type II cardiac ischemia, no acute ischemic changes on EKG.. Obesity with a BMI 51.4 Diabetes mellitus maintained on a combination of oral hypoglycemics including Actos, metformin and glipizide Hypertension Hyperlipidemia degenerative arthritis Plan IV fluids with normal saline at the rate of 60 mL an hour, renal function continues to improve Waiting labs from today Echocardiogram was noted Patient is producing excellent urine output Continue heparin subcu for DVT prophylaxis Sliding scale insulin coverage Transferred outside the intensive care unit. She may transfer out of the intensive care unit at a later stage
[2022-02-14] MEDS: hydrALAZINE HCL 25 MG TAB PO SCH ×3 (10:01→20:36)
[2022-02-14 10:11] LABS: Calcium 9.8 mg/dL (8.4-10.2); Magnesium 1.8 mg/dL (1.6-2.3); Potassium 4.8 mmol/L (3.5-5.1)
[2022-02-14 11:25] VITALS: BMI 55.9
[2022-02-14 11:51] LABS: Glucose,Whole Blood 193 mg/dL (75-99)
[2022-02-14 13:02] LABS: C-ANCA <1:20 Titer (<1:20)
--- NOTE | 2022-02-14 13:59 | P.PN ---
Progress Note - Text Progress Note Date: 02/14/22 Chief Complaint: Confusion This is a 56-year-old patient, follows with Dr. Erickson Dudley. Patient been a diabetic for about 10 years. Denies any complications from her diabetes that she knows of. Does follow with the family doctor. Has underlying hypertension. She does take oral hypoglycemics. Since the last 1 week she has been feeling a bit weak and tired. Her sister sent her to [facility]. Found to be hypoglycemic. Also severe acute kidney injury. Creatinine was 9.3 and potassium was found to be 6.4. Patient did receive IV calcium and IV bicarbonate was transferred here. Dr. Toro from vascular was called last night and he put in a dialysis catheter. Followed by hemodialysis. Patient has been making urine. Admitted to the ICU. Patient denied any fever and chills. Denies any respiratory or urinary symptoms. She is not entirely clear about the events leading to the other hospital. She said she had been getting a bit confused because of hypoglycemia. That she was told Admitted with acute metabolic/uremic encephalopathy/acute kidney injury from ATN from medications and hypertension/severe hyperkalemia/hypoglycemia from oral hypoglycemics/metabolic acidosis. Started on hemodialysis. Admitted to ICU February 13: Oral intake better. Up in a chair. Receive dialysis yesterday. No dialysis today. Making urine. We'll increase Levemir to 20 units at night. Discussed with patient. Getting IV fluids. February 14: ICU: Femoral catheter for dialysis fell out yesterday. Sitting up in a chair. Family visiting. No dialysis today. Active Medications Hydrocodone Bitart/Acetaminophen (Hydrocodone/Apap 5-325mg 1 Each Tab) 1 each PO Q6H PRN PRN Reason: Pain Al Hydroxide/Mg Hydroxide (Mag Hydrox/Al Hydrox/Simeth 30 Ml Cup) 30 ml PO Q4HR PRN PRN Reason: GI Upset Last Admin: 02/12/22 18:59 Dose: 30 ml Atorvastatin Calcium (Atorvastatin 80 Mg Tab) 80 mg PO HS CAT Last Admin: 02/13/22 20:56 Dose: 80 mg Gabapentin (Gabapentin 300 Mg Cap) 300 mg PO HS CAT Last Admin: 02/13/22 20:56 Dose: 300 mg Heparin Sodium (Porcine) (Heparin Sodium,Porcine/Pf 5,000 Unit/0.5 Ml Syringe) 5,000 unit SQ Q8HR CAT Last Admin: 02/14/22 09:09 Dose: 5,000 unit Hydralazine HCl (Hydralazine Hcl 25 Mg Tab) 25 mg PO TID [facility] Last Admin: 02/14/22 10:01 Dose: 25 mg Sodium Chloride (Saline 0.9%) 1,000 mls @ 60 mls/hr IV .[id number] [facility] Last Admin: 02/14/22 08:27 Dose: Not Given Insulin Aspart (Insulin Aspart (Novolog) 100 Unit/Ml Vial) 0 unit SQ ACHS [facility]; Protocol Last Admin: 02/14/22 11:55 Dose: 3 unit Insulin Aspart (Insulin Aspart (Novolog) 100 Unit/Ml Vial) 3 unit SQ AC-TID [facility] Last Admin: 02/14/22 11:56 Dose: 3 unit Insulin Detemir (Insulin Detemir (Levemir) 100 Unit/Ml Syr) 20 unit SQ HS [facility] Last Admin: 02/13/22 20:56 Dose: 20 unit Midodrine (Midodrine 5 Mg Tab) 5 mg PO AC-BID PRN PRN Reason: Hypotension Multivitamins (Multivitamins, Thera 1 Each Tab) 1 each PO DAILY [facility] Last Admin: 02/14/22 09:09 Dose: 1 each Naloxone HCl (Naloxone 0.4 Mg/Ml 1 Ml Vial) 0.2 mg IV Q2M PRN PRN Reason: Opioid Reversal Pantoprazole Sodium (Pantoprazole 40 Mg Tablet) 40 mg PO AC-BRKFST [facility] Last Admin: 02/14/22 07:11 Dose: 40 mg Past medical history to include: Diabetes, hypertension, atrophic left kidney Social history: Lives with her mother and sister. No smoking. Alcohol occasionally. Family history: Hypertension, breast cancer Physical examination: VITAL SIGNS: 98.2, 87, 18, 153/83, 95% room air GENERAL: Up in a chair, eating EYES: Pupils equal. Conjunctiva normal. HEENT: External appearance of nose and ears normal, oral cavity grossly normal. NECK: JVD unable to assess; masses not palpable. HEART: Distance heart sound; no edema. LUNGS: Respiratory rate normal; distant breath sounds. ABDOMEN: Soft, nontender, liver spleen not palpable, no masses palpable. PSYCH: Alert and oriented x3; mood and affect normal. MUSCULOSKELETAL:No Clubbing/cyanosis;muscles-grossly intact INVESTIGATIONS, reviewed in the clinical context: February 14: Potassium 4.8. 49 creatinine 4.5 for Accu-Cheks noted 2-D echocardiogram: EF 55-60%. Moderately increased posterior wall thickness. No wall motion abnormality. February 13: White count 6.5 hemoglobin 11.8 platelets 244 potassium 5. 5 repeat 4.9 BUN 49 creatinine 5.16 February 12: White count 8.2 hemoglobin 12.1. History 95 potassium 5.7 BUN 74 creatinine 7.12 Admission labs: EKG tracing personally reviewed by me-normal sinus rhythm. rate 103. Nonspecific ST segment changes Chest x-ray film personally reviewed by me-no obvious infiltrate White count 10.7 hemoglobin 11.8. History 96 potassium 6.4. 93 creatinine 9.29. Glucose 42 lactic acid 6.5 troponin I 1.9 Hepatitis B screen: Negative Assessment and plan: -Acute metabolic/uremic encephalopathy from acute kidney injury: Improved -Acute kidney injury combination of prerenal from decreased oral intake and ATN. Patient has been on doris inhibitors, NSAIDs and diuretics. Emergent hemodialysis carried out Had dialysis on February 12 -Atrophic left kidney -Severe hyperkalemia from acute kidney injury. Also patient and DORIS inhibitor.: Improved Patient did receive bicarbonate calcium at the outside hospital.. Hemodialyzed . Renal diet -Diabetes mellitus type 2, uncontrolled with hypoglycemia. Patient has been chronically on oral hypoglycemics. Hold for now. Increase Levemir to 24 units tonight. Oral intake better. NovoLog 4 units with meals -Hypoglycemia from decreased oral intake and patient being on Glucotrol and oral hypoglycemics. : Better -Morbid obesity BMI 51.4 Weight loss measures. Dietitian. -Metabolic acidosis from acute kidney injury: Corrected Follow bicarb. -Diabetic peripheral neuropathy: Patient has no pain Neurontin cutback to 100 mg daily at bedtime from tomorrow.. -Elevated troponin in the setting of acute kidney injury. Hemodynamic mismatch Denied chest pain. No further workup. -Essential hypertension. Hold antihypertensive.. Increase Levemir 24 units. Humalog 4 units with meals. Contact Neurontin 200 mg daily at bedtime from tomorrow. Patient has no pain. Increase activity. Follow with consultants. Spoke to the patient and the family at the bedside.
[2022-02-14] MEDS: ENOXAPARIN 30 MG/0.3 ML SYRINGE SQ SCH (15:35)
[2022-02-14 15:58] LABS: Albumin 3.53 g/dL (3.80-4.90); Gamma Globulin 1.07 g/dL (0.70-1.50)
[2022-02-14 16:37] LABS: Glucose,Whole Blood 233 mg/dL (75-99)
[2022-02-14 20:35] LABS: Glucose,Whole Blood 192 mg/dL (75-99)
[2022-02-14] MEDS: GABAPENTIN 300 MG CAP PO SCH (20:36)
[2022-02-14] MEDS: ATORVASTATIN 80 MG TAB PO SCH (20:36)
[2022-02-14] MEDS ORDERED: INSULIN DETEMIR (LEVEMIR) 100 UNIT/ML SYR SQ SCH (21:00)
[2022-02-15 00:37] LABS: Glucose,Whole Blood 176 mg/dL (75-99)
[2022-02-15 00:42] VITALS: TEMP 98
[2022-02-15] MEDS: HEPARIN SODIUM,PORCINE/PF 5,000 UNIT/0.5 ML SYRINGE SQ SCH ×2 (00:43→09:43)
[2022-02-15] MEDS ORDERED: cloNIDine HCL 0.1 MG TAB PO STA (00:48)
[2022-02-15] MEDS ORDERED: hydrALAZINE HCL 20 MG/ML 1 ML VIAL IVP PRN (03:21)
[2022-02-15 06:17] LABS: Glucose,Whole Blood 167 mg/dL (75-99)
[2022-02-15] MEDS: PANTOPRAZOLE 40 MG TABLET PO SCH (06:17)
[2022-02-15] MEDS: INSULIN ASPART (NovoLOG) 100 UNIT/ML VIAL SQ SCH ×4 (06:17→11:55)
[2022-02-15] MEDS ORDERED: hydrALAZINE HCL 25 MG TAB PO SCH (09:00)
[2022-02-15] MEDS ORDERED: amLODIPine 5 MG TAB PO SCH (09:00)
[2022-02-15] MEDS: MULTIVITAMINS, THERA 1 EACH TAB PO SCH (09:44)
[2022-02-15 09:49] VITALS: BP 168/63; PULSE 94; RESP 16
[2022-02-15 10:12] LABS: Calcium 10.3 mg/dL (8.4-10.2); Magnesium 1.7 mg/dL (1.6-2.3); Potassium 4.5 mmol/L (3.5-5.1)
[2022-02-15] MEDS ORDERED: FUROSEMIDE 10 MG/ML 4 ML VIAL IV STA (10:23)
--- NOTE | 2022-02-15 10:24 | P.PN ---
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 The patient is diabetic and she has hypertension. She has been maintained on a combination of Glucophage, Glucotrol, and Actos. The patient was feeling weak and she was having generalized fatigue and episodes of hypoglycemia. She was seen at the [facility] emergency department and she was found also to be in acute kidney injury. The creatinine was as high as 9.3 and the potassium was as high as 6.4. I even her that the potassium was even higher at [facility]. The patient was given calcium and bicarb and following that she was transferred to our hospital. Initial blood work here in our hospital showed a sodium of 139, potassium of 6.4, serum bicarbonate 13, BUN is 93 with a creatinine of 9.2, lactic acid level was 6.5 which dropped down to 4.1, her troponin was 1.9, and the CBC showed a white cell count of 10.7 with a hemoglobin 11.8 and platelet count of 296. She was still having episodes of hypoglycemia and she received a total of 3 doses of D50. She was started on IV fluids and currently she is on a normal saline at the rate of 100 mL an hour. Earlier to that she was on a bicarb infusion at the rate of 125 mL an hour. Her serum bicarbonate improve this morning is up to 26. She was given further potassium treatment yesterday and she underwent dialysis after inserting a temporary dialysis catheter in her right groin. She received a hemodialysis session yesterday. She receive no ultrafiltration.. She is currently on room air oxygen. She does have chronic lower extremity edema. She is hemodynamically stable. Ventura catheter is in place and the patient is producing excellent amount of urine output. The repeat creatinine today is down to 7.12. Repeat potassium level is down to 5.7. No nausea. No vomiting. No emesis. No further episodes of hypoglycemia. She is tolerating oral diet. CAT scan of the abdomen and pelvis was done. The patient has an atrophic left kidney. Right kidney showed a 7 mm lesion which also raised the suspicion for an underlying RCC. A contrast enhanced CAT scan will be needed later stage. There is also 3 mm nonobstructive calculus in the lower pole of the right kidney. No 70 kenney nary artery disease. No history of any chest pain. EKG showing a normal sinus rhythm. No acute ST segment changes. The patient is fully vaccinated for COVID 19 02/13/2022, I'm seeing the patient for a follow-up. The patient has no specific complaints for which she continues to improve. She received another session of hemodialysis yesterday and no fluid was removed and she is doing well in terms of her electrolyte balance. She was seen by urology and nephrology pH is making excellent urine output. She produced approximately 4.3 L of urine output yesterday and she remains in a negative fluid balance for now. Meanwhile, the patient was seen by urology. This is regarding the lesion that was seen on her right kidney. Based on urology is consultation, the patient will need outpatient follow-up regarding his abnormal findings. This right lower pole kidney lesion is probably malignant based on the CAT scan and ultrasound characteristics. This will be dealt at a later stage on outpatient basis. Meanwhile, the patient is currently on IV fluids at 60 mL an hour of normal saline. Electrolytes from today show a sodium of 137, BUN is 49 with a creatinine of 5.1 and the potassium level is at 5.5. The white cell count is at 6.5 with a hemoglobin of 11.8. A urinalysis was obtained yesterday and it showed 14 WBCs, 86 RBCs and +1 protein. 02/14 2022, the patient is on room air oxygen. She is producing adequate amount of urine output. She has a Ventura catheter in place. Blood work and electrolytes are still pending for now and of interest will be her follow-up renal function. She has produced approximately 4.3 L of urine output on 02/13/2022 and another 1.6 L following that. No labs are available from today. No episodes of hypoglycemia in the patient's blood sugars at 140 and oral hypoglycemics have been discontinued and the patient is taking only sliding scale insulin coverage. The patient is sitting up on a chair. She is calm and comfortable. Echo of the heart showed an ejection fraction of 55-60% and there was severely increased septal wall thickness probably related to chronic hypertension. The aortic and the mitral valves were structurally within normal limits. 02/15/2022 the patient is doing well. No hypoglycemia. Renal function continues to improve in the creatinine is down to 3.95. Rest of the electrodes are normal. She is doing well. Tolerating diet. Urine output is in order of more than 40 mL an hour and the patient is voiding adequately. Ventura catheter was removed. She is calm and comfortable. No issues for now. She produced 2 100 mL of urine output overnight. Objective - Vital Signs Vital signs: Vital Signs Temp 98 F 02/15/22 00:41 Pulse 94 02/15/22 09:35 Resp 16 02/15/22 09:35 BP 168/63 02/15/22 09:35 Pulse Ox 97 02/15/22 00:41 FiO2 Intake & Output 02/14/22 02/15/22 02/15/22 18:59 06:59 18:59 Intake Total 600 720 Output Total 2049 2099 Balance -1450 -1380 Weight 143.3 kg Intake: Intake, IV Titration 240 360 Amount Sodium Chloride 0.9% 1, 240 360 000 ml @ 60 mls/hr IV . [id number] [facility] Rx#:[id number] Oral 360 360 Output: Urine 2049 2099 Other: Voiding Method Toilet Toilet Toilet # Voids 5 4 - Exam General appearance: alert, obese, other (drowsy at times), body mass index is 51.4 and the patient is awake and alert and breathing is nonlabored patient sitting up on a chair and she is coughing comfortable. Head exam: Present: atraumatic, normocephalic, normal inspection Eye exam: Present: normal appearance, PERRL, EOMI. Absent: scleral icterus, conjunctival injection, periorbital swelling ENT exam: Present: normal exam, mucous membranes moist Neck exam: Present: normal inspection. Absent: tenderness, meningismus, lymphadenopathy Respiratory exam: Present: normal lung sounds bilaterally. Absent: respiratory distress, wheezes, rales, rhonchi, stridor Cardiovascular Exam: Present: regular rate, normal rhythm, normal heart sounds. Absent: systolic murmur, diastolic murmur, rubs, gallop, clicks GI/Abdominal exam: Present: soft, normal bowel sounds. Absent: distended, te nderness, guarding, rebound, rigid External exam: Present: other (Ventura catheter intact with clear yellow urine adequate output noted) Extremities exam: Absent: pedal edema, joint swelling Neurological exam: Present: alert, oriented X3, CN II-XII intact Psychiatric exam: Present: normal affect, normal mood Skin exam: Present: other (Excoriation noted under pannus) - Labs CBC & Chem 7: 02/13/22 06:29 02/15/22 09:11 Labs: Abnormal Lab Results - Last 24 Hours (Table) 02/13/22 02/14/22 02/14/22 Range/Units 11:44 11:50 16:35 BUN (7-17) mg/dL Creatinine (0.52-1.04) mg/dL Glucose (74-99) mg/dL POC Glucose (mg/dL) 193 H 233 H (75-99) mg/dL Calcium (8.4-10.2) mg/dL Albumin (PEP) 3.53 L (3.80-4.90) g/dL Hgynr-9-Yqkjxyfbw 0.51 H (0.10-0.40) g/dL Cfiql-2-Gvpcvpswx 1.33 H (0.60-1.00) g/dL 02/14/22 02/15/22 02/15/22 Range/Units 20:34 00:35 06:15 BUN (7-17) mg/dL Creatinine (0.52-1.04) mg/dL Glucose (74-99) mg/dL POC Glucose (mg/dL) 192 H 176 H 167 H (75-99) mg/dL Calcium (8.4-10.2) mg/dL Albumin (PEP) (3.80-4.90) g/dL Cjyqs-9-Rmsedxzgi (0.10-0.40) g/dL Gyzkw-0-Pinvnapym (0.60-1.00) g/dL 02/15/22 Range/Units 09:11 BUN 48 H (7-17) mg/dL Creatinine 3.95 H (0.52-1.04) mg/dL Glucose 266 H (74-99) mg/dL POC Glucose (mg/dL) (75-99) mg/dL Calcium 10.3 H (8.4-10.2) mg/dL Albumin (PEP) (3.80-4.90) g/dL Nymqs-6-Ehmzghzhs (0.10-0.40) g/dL Cyjbx-2-Sgtxuizpo (0.60-1.00) g/dL Microbiology - Last 24 Hours (Table) 02/12/22 10:12 Blood Culture - Preliminary Blood No Growth after 48 hours Assessment and Plan Plan: Acute kidney injury. The patient presented with acute kidney injury, hypoglycemia and hyperkalemia with metabolic acidosis. The patient underwent HD treatment for your hyperkalemia x2 . Noted the patient was taken a combination of shara inhibitors in the form of Zestoretic and she was also taking Aldactone outpatient basis. We came to find out that the patient was also taking diclofenac on outpatient basis. As such, this is probably a drug induced ATN and the patient is improving for now with excellent urine output. Labs from today show that the patient's creatinine is improving is down to 3.9. No electrolytes imbalance. Episodic hypoglycemia, likely drug-induced, improved and the patient's blood sugar improved, the patient remains off oral hypoglycemic medication and she is only on a slide scale coverage. Non-anion gap metabolic acidosis, improved Acute hyperkalemia, improved Atrophic left kidney with a 7 mm right kidney lesion that needs to be further worked up for possibility of RCC at a later stage, evaluated by urology and this will need a surgical intervention at a later stage Acute elevation of troponin, could be a type II cardiac ischemia, no acute ischemic changes on EKG.. Obesity with a BMI 51.4 Diabetes mellitus maintained on a combination of oral hypoglycemics including Actos, metformin and glipizide Hypertension Hyperlipidemia degenerative arthritis Plan IV fluids KVO Stop Zestoretic and stop Aldactone and stop nonsteroidal anti-inflammatory medications Patient can be transferred out of the intensive care unit and possibly home Do not start oral hypoglycemics as long as the patient renal function has not completely normalized Transfer to a medical floor and possibly home if cleared by the rest of the consultants with a short-term follow-up with her primary care physician, Dr. Erickson Dudley
--- NOTE | 2022-02-15 10:24 | P.PN ---
Subjective Patient seen in follow-up for acute kidney injury. Started on hemodialysis 02/11/2022. Last hemodialysis 02/12/2022. Off IV fluids. Oral intake is good. Nonoliguric. Blood pressure high last night. On room air. Vital signs are stable. General: Awake and alert. No acute distress. HEENT: Head exam is unremarkable. LUNGS: Breath sounds decreased. HEART: Rate and Rhythm are regular. ABDOMEN: Soft, obese. EXTREMITITES: Trace edema. Objective - Vital Signs Vital signs: Vital Signs Temp 98 F 02/15/22 00:41 Pulse 94 02/15/22 09:35 Resp 16 02/15/22 09:35 BP 168/63 02/15/22 09:35 Pulse Ox 97 02/15/22 00:41 FiO2 Intake & Output 02/14/22 02/15/22 02/15/22 18:59 06:59 18:59 Intake Total 600 720 Output Total 2049 2100 Balance -1450 -1380 Weight 143.3 kg Intake: Intake, IV Titration 240 360 Amount Sodium Chloride 0.9% 1, 240 360 000 ml @ 60 mls/hr IV . [id number] [facility] Rx#:[id number] Oral 360 360 Output: Urine 2049 2099 Other: Voiding Method Toilet Toilet # Voids 5 4 - Labs CBC & Chem 7: 02/13/22 06:29 02/15/22 09:11 Labs: Abnormal Lab Results - Last 24 Hours (Table) 02/13/22 02/14/22 02/14/22 Range/Units 11:44 11:50 16:35 BUN (7-17) mg/dL Creatinine (0.52-1.04) mg/dL Glucose (74-99) mg/dL POC Glucose (mg/dL) 193 H 233 H (75-99) mg/dL Calcium (8.4-10.2) mg/dL Albumin (PEP) 3.53 L (3.80-4.90) g/dL Hwbcz-0-Spyjcreee 0.51 H (0.10-0.40) g/dL Fbdey-3-Weogudhag 1.33 H (0.60-1.00) g/dL 02/14/22 02/15/22 02/15/22 Range/Units 20:34 00:35 06:15 BUN (7-17) mg/dL Creatinine (0.52-1.04) mg/dL Glucose (74-99) mg/dL POC Glucose (mg/dL) 192 H 176 H 167 H (75-99) mg/dL Calcium (8.4-10.2) mg/dL Albumin (PEP) (3.80-4.90) g/dL Rdoyj-9-Blvbsqsuo (0.10-0.40) g/dL Bwyqb-7-Okjkpjvwa (0.60-1.00) g/dL 02/15/22 Range/Units 09:11 BUN 48 H (7-17) mg/dL Creatinine 3.95 H (0.52-1.04) mg/dL Glucose 266 H (74-99) mg/dL POC Glucose (mg/dL) (75-99) mg/dL Calcium 10.3 H (8.4-10.2) mg/dL Albumin (PEP) (3.80-4.90) g/dL Fineh-8-Vvncyzqqo (0.10-0.40) g/dL Xnlje-2-Owxgcqncu (0.60-1.00) g/dL Microbiology - Last 24 Hours (Table) 02/12/22 10:12 Blood Culture - Preliminary Blood No Growth after 48 hours Assessment and Plan Plan: Assessment: 1. Acute kidney injury secondary to ATN secondary to hypotension and nonsteroidals further worsened with the use of DORIS inhibitor and diuretics. Creatinine >9 on admission - started on hemodialysis 02/11/2022. Nonoliguric. No hydronephrosis noted on CAT scan. Last hemodialysis 02/12/2022. Creatinine 3.95 today. 2. Hyperkalemia secondary to acute kidney injury, NSAIDs, metabolic acidosis, spironolactone and lisinopril. Improved postdialysis. 3. Metabolic acidosis secondary to acute kidney injury, lactic acidosis and use of metformin. Improved. 4. Diabetes mellitus. 5. Benign hypertension. 6. Right kidney lesion. Mass versus inflammation. Seen by urology. May require surgical intervention. 7. Atrophic left kidney. 8. Lower extremity edema. 9. Hypercalcemia. Unclear cause. Patient is on Theragran. Plan: Hep-Lock IV fluids. Lasix 40 mg IV once today. Stop Theragran. Follow-up cultures. Currently does not have dialysis access. Femoral catheter fell out 02/13/2022. I expect no further need for renal replacement therapy. Avoid nephrotoxins. Continue to monitor renal function and urine output. UPC 2.0 g -serologies negative. Will re-quantify outpatient once KAY resolves. Continue to hold diuretics as well as lisinopril for now. EF preserved. Stop midodrine. Dose of hydralazine increased. Add amlodipine. Check further workup for hypercalcemia.
[2022-02-15 11:40] LABS: Glucose,Whole Blood 231 mg/dL (75-99)
[2022-02-15] MEDS ORDERED: GABAPENTIN 100 MG CAP PO SCH (21:00)
== END 2022-02-15 12:42 | disposition home or self-care (01) | DRG 682 ==
LOC: EC 13:22 → 2SICU 16:19
PROVIDERS: ADMIT Hospitalist; ATTEND Hospitalist
PROC: 02HV33Z Insertion of Infusion Device into Superior Vena Cava, Percutaneous Approach (ICD-10-PCS; principal; 2022-02-11 17:12)
PROC: 5A1D70Z Performance of Urinary Filtration, Intermittent, Less than 6 Hours Per Day (ICD-10-PCS; 2022-02-11 17:12)
DX: N17.0 Acute kidney failure with tubular necrosis (principal); G93.41 Metabolic encephalopathy; G93.49 Other encephalopathy; E87.2 Acidosis; Z68.43 Body mass index [BMI] 50.0-59.9, adult; E83.52 Hypercalcemia; E87.5 Hyperkalemia; E11.42 Type 2 diabetes mellitus with diabetic polyneuropathy; E11.649 Type 2 diabetes mellitus with hypoglycemia without coma; E66.01 Morbid (severe) obesity due to excess calories; I10 Essential (primary) hypertension; N26.1 Atrophy of kidney (terminal); Z79.4 Long term (current) use of insulin; Z79.82 Long term (current) use of aspirin; Z79.84 Long term (current) use of oral hypoglycemic drugs; Z79.899 Other long term (current) drug therapy; Z80.3 Family history of malignant neoplasm of breast; Z82.49 Family history of ischemic heart disease and other diseases of the circulatory system; Z83.3 Family history of diabetes mellitus; Z87.891 Personal history of nicotine dependence; Z98.890 Other specified postprocedural states; I95.9 Hypotension, unspecified; T39.395A Adverse effect of other nonsteroidal anti-inflammatory drugs [NSAID], initial encounter; T50.2X5A Adverse effect of carbonic-anhydrase inhibitors, benzothiadiazides and other diuretics, initial encounter; T46.5X5A Adverse effect of other antihypertensive drugs, initial encounter
CPT/HCPCS: 36415; 36556; 71045; 74176; 76770; 76937; 77001; 80048; 80053; 80074; 81001; 82570; 83605; 83735; 84132; 84156; 84165; 84484; 85025; 85610; 85730; 86038; 86160; 86162; 86225; 86255; 86334; 86335; 86704; 86706; 87040; 87086; 87340; 90935; 93005; 93306; 94640; 96365; 96368; 96375; 99291

== ENCOUNTER → 2022-07-11 | Outpatient (CLI) | payer BC ==
--- NOTE | 2022-07-12 09:41 | CT ---
EXAMINATION TYPE: CT ChestAbdPelvis w con DATE OF EXAM: 07/11/2022 INDICATION: Renal cell carcinoma METS to left hip COMPARISON: 02/11/2022 CT DLP: 4499.7 mGycm CONTRAST: Performed with Oral Contrast and with IV Contrast, patient injected with 70 mL of Isovue 300. TECHNIQUE: Axial images at 5 mm thick sections. Reconstructed images in the coronal plane. Delayed images through the kidneys. FINDINGS: CT CHEST: Right lobe thyroid is somewhat enlarged near the isthmus. Consider additional evaluation with ultraso und. No suspicious lung nodules or focal infiltrates are present. There is an enlarged 1.7 cm superior mediastinal lymph node right suprahilar adenopathy may be presen t. There is enlarged right paratracheal lymph node measuring 2.3 cm. The ascending aorta diameter at the level of the main pulmonary artery is 3.2 cm. The main pulmonary artery diameter at the bifurcation is 2.[address] ABDOMEN: Liver: Normal Spleen: Normal Pancreas: Normal Adrenal glands: The adrenal glands are normal. Gallbladder: Sludge or small gallstones are layering within the dependent gallbladder. Kidneys: Left kidney is atrophic. There is a mass in the posterior lateral right mid kidney measuring 6.6 x 5.1 cm. . No hydronephrosis is present. No cysts are present. Nonobstructing renal stone is at the inferior pole right kidney Delayed images were obtained through the kidneys, which remain unr emarkable. Aorta: Vascular calcification is within the aorta. Inferior vena cava: Normal. CT PELVIS: Loops of bowel within the abdomen and pelvis are normal. There are loops of bowel which are incom pletely distended or lack oral contrast limiting their evaluation. Appendix: Normal as visualized. Urinary bladder: Decompressed with limited evaluation Genitourinary structures: Uterus appears unremarkable. Adnexa are normal. Osseous structures: There is an expansile lytic area within the left acetabulum extending into the pu bic ramus. A pubic ramus fracture is identified medially. IMPRESSIONS: 1. Right renal mass appears to be enlarging from comparison. 2. Continued increasing destruction of the left acetabulum and pubic ramus. 3. Enlarged mediastinal lymph nodes suspicious for metastasis. Consider PET/CT for complete evaluatio n.
== END | disposition home or self-care (01) ==
LOC: RADCTMAIN 07:27
PROVIDERS: ATTEND Internal Medicine Hematology & Oncology
DX: C64.1 Malignant neoplasm of right kidney, except renal pelvis (principal); N18.9 Chronic kidney disease, unspecified; E11.22 Type 2 diabetes mellitus with diabetic chronic kidney disease; Z71.3 Dietary counseling and surveillance; R59.0 Localized enlarged lymph nodes
CPT/HCPCS: 82565; 84520; 71260; 74177; 36415; Q9967 ×2

== ENCOUNTER → 2022-08-27 | Outpatient (CLI) | payer OTHER ==
--- NOTE | 2022-08-27 15:04 | NM ---
EXAMINATION TYPE: NM bone scan whole body DATE OF EXAM: 08/27/2022 COMPARISON: CT scan 07/11/2022 HISTORY: Renal cell cancer Delayed whole-body scanning was performed following the injection of 25.8 mCi Tc 99m MDP. Images acq uired 3 hours post injection. FINDINGS: Abnormal uptake involving the shoulders appears compatible with arthritic change. Mild intensity uptake throughout the thoracic and lumbar spine compatible with hypertrophic degenerat ok changes and concordant with the CT findings. More intense abnormal moderate uptake involving the left paraspinal region in the region of the lower lumbar spine also appears to be most likely hypertrophic degenerative changes concordant with CT sca n. Abnormal uptake involving the knees, ankles and feet most likely post arthritic or degenerative diagn ostic evidence of stones Abnormal moderate intensity uptake left hip compatible with CT finding of destructive osseous lesion. As previously noted by CT scan pathologic inferior pubic ramus. IMPRESSION: 1. Concordant CT findings and nuclear exam of destructive lesion left pelvis and hip compatible with metastases. Mildly displaced inferior pubic ramus pathologic fracture suspected. 2. Abnormal uptake throughout the vertebral column is most likely degenerative.
== END | disposition home or self-care (01) ==
LOC: RADNMMAIN 10:33
PROVIDERS: ATTEND Internal Medicine Hematology & Oncology
DX: C64.1 Malignant neoplasm of right kidney, except renal pelvis (principal); N18.9 Chronic kidney disease, unspecified; E11.9 Type 2 diabetes mellitus without complications; R51.9 Headache, unspecified; Z71.3 Dietary counseling and surveillance
CPT/HCPCS: 78306; A9503

== ENCOUNTER → 2022-10-08 | Outpatient (CLI) | payer OTHER ==
--- NOTE | 2022-10-08 13:38 | CT ---
EXAMINATION TYPE: CT ChestAbdPelvis w con CT DLP: 3075 mGycm, Automated exposure control for dose reduction was used. DATE OF EXAM: 10/08/2022 1:23 PM COMPARISON: CT chest abdomen and pelvis 07/11/2022, nuclear medicine bone scan 08/27/2022. CLINICAL INDICATION:Female, 57 years old with history of C64.1; PHH, CHECK UP KIDNEY CA, CA ALSO PRES ENT IN HIP BONE AND LYMPH NODES Technique: Multiple axial images of the chest, abdomen, and pelvis were obtained following the intrav enous administration of 70 mL Isovue-300. Oral contrast was administered Two-dimensional coronal and sagittal reconstructions were obtained. Findings: Limited examination due to patient's body habitus. CHEST: LUNGS/ PLEURA: No pleural effusion, pneumothorax, or focal consolidation. No suspicious pulmonary nod ules or masses. AIRWAY: Patent and unremarkable.. HEART: Size within normal limits. Trace pericardial fluid. Coronary arterial calcifications. MEDIASTINUM: Decreased size of right paratracheal mediastinal lymph node measuring 1.0 cm short axis, produce a 2.3 cm. Additional decrease in size of left prevascular space lymph node measuring 0.7 cm short axis, previously 1.7 cm. VASCULATURE: No aortic aneurysm. MUSCULOSKELETAL: No acute osseous abnormalities. SOFT TISSUES/LYMPH NODES: Unremarkable. LOWER NECK: No significant findings. ABDOMEN: ABDOMEN LIVER: Unremarkable GALLBLADDER AND BILE DUCTS: Layering increased densities within the lumen consistent with gallstones are present. No biliary duct dilatation. PANCREAS: Unremarkable. SPLEEN: Unremarkable. ADRENAL GLANDS: Unremarkable. KIDNEYS AND URETERS: No hydronephrosis. Nonobstructive right inferior pole 5 mm calculus. Atrophy of the left kidney redemonstrated. Redemonstration of a heterogenous enhancing mass emanating from the p osterior lateral right kidney measuring 6.1 x 5.5 cm which is relatively unchanged in size from prior exam. PELVIS BLADDER: Incompletely distended but grossly unremarkable. REPRODUCTIVE: Unremarkable. ABDOMEN & PELVIS STOMACH AND BOWEL: Stomach and duodenum are unremarkable . No focal wall thickening. Enteric contrast reaches the distal small bowel. No evidence of bowel obstruction. PERITONEUM: No evidence of pneumoperitoneum or free fluid. VASCULATURE: Mild atherosclerotic calcifications are present throughout the abdominal aorta and its b ranches. No abdominal aortic aneurysm. MUSCULOSKELETAL: Similar expansile destructive lytic area within the left acetabulum extending into t he pubic ramus and left femoral head. Redemonstration of fracture with surrounding callus formation i nvolving the left inferior pubic ramus. No new suspicious osseous lesions. Multilevel degenerative ch anges of the visualized spine. LYMPH NODES: No gross evidence for lymphadenopathy. SOFT TISSUE/ABDOMINAL WALL: Diffuse anasarca. IMPRESSION: 1. Relatively unchanged size of right renal mass from prior examination consistent with known renal c ell carcinoma. 2. Positive response to therapy with decrease in size of mediastinal adenopathy. 3. Similar metastatic disease involving the left acetabulum and proximal femur. Redemonstration of fr acture involving the left inferior pubic ramus with surrounding callus or formation which may be rela allan to pathologic fracture versus previous trauma. 4. Nonobstructive right renal calculus. 5. Cholelithiasis.
== END | disposition home or self-care (01) ==
LOC: RADCTMAIN 11:11
PROVIDERS: ATTEND Internal Medicine Hematology & Oncology
DX: C79.51 Secondary malignant neoplasm of bone (principal); C64.1 Malignant neoplasm of right kidney, except renal pelvis; N20.0 Calculus of kidney; K80.20 Calculus of gallbladder without cholecystitis without obstruction; N28.89 Other specified disorders of kidney and ureter; N18.9 Chronic kidney disease, unspecified; R51.9 Headache, unspecified; Z71.3 Dietary counseling and surveillance
CPT/HCPCS: 82565; 84520; 71260; 74177; 36415; Q9967

== ENCOUNTER → 2023-04-03 | Outpatient (CLI) | payer OTHER ==
--- NOTE | 2023-04-04 07:58 | CT ---
EXAMINATION TYPE: CT ChestAbdPelvis w con CT DLP: 3057.4 mGycm, Automated exposure control for dose reduction was used. DATE OF EXAM: 04/03/2023 11:10 AM COMPARISON: CT chest abdomen and pelvis 10/08/2022, 07/11/2022 CLINICAL INDICATION:Female, 57 years old with history of C64.1 renal ca; PHH, renal ca Technique: Multiple axial images of the chest, abdomen, and pelvis were obtained following the intrav enous administration of 100 mL Isovue-300. Two-dimensional coronal and sagittal reconstructions were obtained. Findings: Findings: Limited examination due to patient's body habitus. CHEST: LUNGS/ PLEURA: No pleural effusion, pneumothorax, or focal consolidation. No suspicious pulmonary nod ules or masses. AIRWAY: Patent and unremarkable.. HEART: Size within normal limits. Similar trace pericardial fluid. Coronary arterial calcifications. MEDIASTINUM: Decreased size of right paratracheal mediastinal lymph node measuring 0 point cm short a xis, previously 1. Cm. Additional decrease in size of left prevascular space lymph node measuring 0.4 cm short axis, previously 0.7 cm. No new mediastinal or hilar adenopathy. VASCULATURE: No aortic aneurysm. MUSCULOSKELETAL: No acute osseous abnormalities. SOFT TISSUES/LYMPH NODES: Unremarkable. LOWER NECK: No significant findings. ABDOMEN: ABDOMEN LIVER: Unremarkable GALLBLADDER AND BILE DUCTS: Layering increased densities within the lumen consistent with gallstones are present. No biliary duct dilatation. PANCREAS: Unremarkable. SPLEEN: Unremarkable. ADRENAL GLANDS: Unremarkable. KIDNEYS AND URETERS: No hydronephrosis. Nonobstructive right inferior pole 5 mm calculus. Atrophy of the left kidney redemonstrated. Marginal increase in size of heterogeneously enhancing mass in the fr om the posterior lateral right kidney measuring 6.4 x 6.5 cm, previously measured 6.3 x 6.0 cm when m easuring with similar technique. PELVIS BLADDER: Incompletely distended but grossly unremarkable. REPRODUCTIVE: Unremarkable. ABDOMEN & PELVIS STOMACH AND BOWEL: Stomach and duodenum are unremarkable . No focal wall thickening. Enteric contrast reaches the mid small bowel. No evidence of bowel obstruction. PERITONEUM: No evidence of pneumoperitoneum or free fluid. VASCULATURE: Mild atherosclerotic calcifications are present throughout the abdominal aorta and its b ranches. No abdominal aortic aneurysm. MUSCULOSKELETAL: Similar expansile destructive lytic area within the left acetabulum extending into t he pubic ramus and left femoral head. Remote left inferior pubic ramus fracture redemonstrated. No ne w suspicious osseous lesions. Multilevel degenerative changes of the visualized spine. LYMPH NODES: No evidence for lymphadenopathy. SOFT TISSUE/ABDOMINAL WALL: Diffuse anasarca with anterior abdominal wall skin thickening. Tiny fat f illed umbilical hernia. IMPRESSION: 1. Marginal increase in size of right renal enhancing mass consistent with known renal cell carcinoma . 2. Decrease in size of mediastinal adenopathy from prior examination. No new pathologic adenopathy wi thin the chest, abdomen or pelvis. 3. Similar metastatic disease involving the left acetabulum and proximal femur. 4. Nonobstructive right renal calculus. 5. Cholelithiasis.
== END | disposition home or self-care (01) ==
LOC: RADCTMAIN 09:02
PROVIDERS: ATTEND Internal Medicine Hematology & Oncology
DX: C79.51 Secondary malignant neoplasm of bone (principal); C64.1 Malignant neoplasm of right kidney, except renal pelvis; K80.20 Calculus of gallbladder without cholecystitis without obstruction; N20.0 Calculus of kidney; R59.0 Localized enlarged lymph nodes
CPT/HCPCS: 71260; 74177; Q9967

== ENCOUNTER → 2023-10-07 | Outpatient (CLI) | payer OTHER ==
[2023-10-07 11:27] LABS: African American GFR (CKD) 57 (>60 ml/min/1.73 sqM); Blood Urea Nitrogen 35 mg/dL (7-17); Non-African American GFR(CKD) 50 (>60 ml/min/1.73 sqM)
--- NOTE | 2023-10-07 14:46 | CT ---
EXAMINATION TYPE: CT ChestAbdPelvis w con DATE OF EXAM: 10/07/2023 INDICATION: f/u renal ca COMPARISON: 04/03/2023 CT DLP: 2859.8 mGycm CONTRAST: Performed with Oral Contrast and with IV Contrast, patient injected with 80 mL of Isovue 300. TECHNIQUE: Axial images at 5 mm thick sections. Reconstructed images in the coronal plane. Delayed images through the kidneys. FINDINGS: CT CHEST: Portion of the thyroid visualized is normal. There are multiple bilateral pulmonary nodules present. The largest in the left lower lung field laura ures 3.3 x 1.8 cm. A larger nodule on the right measures 2.0 x 2.4 cm. Series 4 image 24. No enlarged mediastinal or hilar adenopathy is evident. The ascending aorta diameter at the level of the main pulmonary artery is 3.4 cm. The main pulmonary artery diameter at the bifurcation is 3.[address] ABDOMEN: Liver: Normal Spleen: Normal Pancreas: Normal Adrenal glands: The adrenal glands are normal. Gallbladder: There is some increased density within the dependent gallbladder. Sludge and gallstones could be considered. Kidneys: There is a 6.9 x 7.2 cm mass on the posterior lateral right upper kidney. Left kidney appear s atrophic.. No hydronephrosis is present. No cysts are present. Delayed images were obtained thro ugh the kidneys. Contrast excretion on the left is not identified. Aorta: Vascular calcification is within the aorta. Inferior vena cava: Normal. CT PELVIS: Loops of bowel within the abdomen and pelvis are normal. There are loops of bowel which are incom pletely distended or lack oral contrast limiting their evaluation. Appendix: Not identified. No dilated tubular structure or inflammatory change is evident. Urinary bladder: Decompressed with limited evaluation. Genitourinary structures: Uterus is unremarkable. Adnexa are unremarkable. Osseous structures: There is expansion of the left acetabulum. There is loss of the left femoral head . Posttraumatic destructive erosive changes may be present. Underlying neoplasm is not excluded. Ther e appears to be some fractures which could be pathologic through the left hemipelvis at this level. T hese findings were present on the previous examination. IMPRESSION: 1. Development of extensive pulmonary nodules suspicious for metastatic disease. 2. Enlarging posterior lateral right renal mass. 3. Destructive changes at the left hip were present previously and appears similar.
== END | disposition home or self-care (01) ==
LOC: RADCTMAIN 10:50
PROVIDERS: ATTEND Internal Medicine Hematology & Oncology
DX: N28.89 Other specified disorders of kidney and ureter (principal); C64.1 Malignant neoplasm of right kidney, except renal pelvis; M25.852 Other specified joint disorders, left hip; N18.9 Chronic kidney disease, unspecified; R51.9 Headache, unspecified; R91.8 Other nonspecific abnormal finding of lung field; Z71.3 Dietary counseling and surveillance
CPT/HCPCS: 82565; 84520; 71260; 74177; 36415; Q9967

== ENCOUNTER 2024-01-23 14:10 | Inpatient (IN) | payer OTHER ==
--- NOTE | 2024-01-23 14:29 | ED ---
Recheck HPI - General Chief Complaint: Recheck/Abnormal Lab/Rx Stated Complaint: abn labs Time Seen by Provider: 01/23/24 14:28 Source: patient, EMS, RN notes reviewed Mode of arrival: EMS Limitations: no limitations - History of Present Illness Initial Comments: 58-year-old female presented to the ER with a chief complaint of low hemoglobin. Patient is currently residing at [facility] and they ruby labs this morning and found her hemoglobin to be low. Patient does have a past medical history significant for renal cancer following up with Dr. Singh. Patient reports she receives frequent blood transfusions due to the cancer. Patient denies any headache, cough, congestion, shortness of breath, chest pain, abdominal pain or urinary complaints. Patient is reporting left leg pain. She does states she normally wears oxygen at home. - Related Data Home Medications Medication Instructions Recorded Confirmed Multivitamins, Thera [Multivitamin 1 tab PO DAILY 02/11/22 01/23/24 (formulary)] Acetaminophen [Tylenol] 650 mg PO Q6H PRN 01/23/24 01/23/24 Cyanocobalamin (Vitamin B-12) 1,000 mcg PO DAILY 01/23/24 01/23/24 [Vitamin B-12] Empagliflozin [Jardiance] 10 mg PO DAILY 01/23/24 01/23/24 Furosemide [Lasix] 40 mg PO BID 01/23/24 01/23/24 Gabapentin [Neurontin] 300 mg PO BID 01/23/24 01/23/24 HYDROcodone/APAP 7.5-325MG [[place] 1 tab PO Q4H PRN 01/23/24 01/23/24 7.5-325] Insulin Glargine,Hum.rec.anlog 30 units SQ DAILY 01/23/24 01/23/24 [Insulin Glargine] Insulin Lispro [Admelog Solostar] See Protocol SQ ACHS 01/23/24 01/23/24 Losartan [Cozaar] 25 mg PO DAILY 01/23/24 01/23/24 Magnesium Oxide [Mag-Ox] 400 mg PO BID 01/23/24 01/23/24 Pantoprazole [Protonix] 40 mg PO DAILY 01/23/24 01/23/24 Sennosides [Senokot] 8.6 mg PO BID PRN 01/23/24 01/23/24 Sodium Chloride [Saline Mist] 1 spray EA NOSTRIL BID 01/23/24 01/23/24 Spironolactone [Aldactone] 25 mg PO DAILY 01/23/24 01/23/24 hydrALAZINE HCL [Apresoline] 50 mg PO TID 01/23/24 01/23/24 metFORMIN HCL [Glucophage] 500 mg PO BID 01/23/24 01/23/24 polyethylene glycoL 3350 [Miralax] 17 gm PO DAILY PRN 01/23/24 01/23/24 Previous Rx's Medication Instructions Recorded Aspirin 81 mg PO DAILY #30 chewable 08/27/15 Allergies Allergy/AdvReac Type Severity Reaction Status Date / Time ibuprofen Allergy Rash/Hives Verified 02/11/22 14:47 Review of Systems ROS Statement: Those systems with pertinent positive or pertinent negative responses have been documented in the HPI. ROS Other: All systems not noted in ROS Statement are negative. Past Medical History Past Medical History: Cancer, Diabetes Mellitus, Hypertension History of Any Multi-Drug Resistant Organisms: None Reported Past Surgical History: Orthopedic Surgery Additional Past Surgical History / Comment(s): bone spur right heel surgery, right meniscus surgery Past Anesthesia/Blood Transfusion Reactions: No Reported Reaction Past Psychological History: No Psychological Hx Reported Smoking Status: Former smoker Past Alcohol Use History: None Reported Past Drug Use History: None Reported - Past Family History Sister(s) Family Medical History: Diabetes Mellitus Additional Family Medical History / Comment(s): Both sisters have Type II diabetetes Mother Family Medical History: Hypertension Additional Family Medical History / Comment(s): Currently in remission from breast cancer Father Additional Family Medical History / Comment(s): no history reported, in car accident General Exam Limitations: physical limitation General appearance: alert, in no apparent distress Head exam: Present: atraumatic, normocephalic, normal inspection Respiratory exam: Present: normal lung sounds bilaterally. Absent: respiratory distress, wheezes, rales, rhonchi, stridor Cardiovascular Exam: Present: regular rate, normal rhythm, normal heart sounds. Absent: systolic murmur, diastolic murmur, rubs, gallop, clicks GI/Abdominal exam: Present: soft, normal bowel sounds. Absent: distended, tenderness, guarding, rebound, rigid Extremities exam: Present: other (2+ pedal pitting edema bilaterally.) Neurological exam: Present: alert Skin exam: Present: warm, dry, intact, normal color. Absent: rash Course Vital Signs 01/23/24 01/23/24 14:14 19:00 Temperature 98.2 F 98.3 F Pulse Rate 109 H 106 H Respiratory 20 16 Rate Blood Pressure 121/69 O2 Sat by Pulse 97 95 Oximetry Medical Decision Making - Medical Decision Making Was pt. sent in by a medical professional or institution (, PA, ENTRY WRITER, urgent care, hospital, or halfway...) When possible be specific @ -Patient sent by [facility] for evaluation of hemoglobin of 6.1. Did you speak to anyone other than the patient for history (EMS, parent, family, police, friend...)? What history was obtained from this source @ -No Did you review nursing and triage notes (agree or disagree)? Why? @ -I reviewed and agree with nursing and triage notes Were old charts reviewed (outside hosp., previous admission, EMS record, old EKG, old radiological studies, urgent care reports/EKG's, halfway records)? Report findings @ -No old charts were reviewed Differential Diagnosis (chest pain, altered mental status, abdominal pain women, abdominal pain men, vaginal bleeding, weakness, fever, dyspnea, syncope, headache, dizziness, GI bleed, back pain, seizure, CVA, palpatations, mental health, musculoskeletal)? @ -Differential Weakness:Hypoglycemia, shock, sepsis, hyponatremia, anemia, infection, KS, ETOH, adverse medicine reaction, overdose, stroke, this is not meant to be an all-inclusive list. EKG interpreted by me (3pts min.). @ -As above X-rays interpreted by me (1pt min.). @ -Chest x-ray interpreted by me significant for multiple masses scattered throughout the lungs. CT interpreted by me (1pt min.). @ -CT chest with contrast significant for progression of metastatic disease increasing size and number of pulmonary nodules. Cholelithiasis present. U/S interpreted by me (1pt. min.). @ -None done What testing was considered but not performed or refused? (CT, X-rays, U/S, labs)? Why? @ -None What meds were considered but not given or refused? Why? @ -None Did you discuss the management of the patient with other professionals (vic handy i.e. , PA, ENTRY WRITER, lab, RT, psych nurse, social work administrator, gluer, teacher, information technology officer, case assembler)? Give summary @ -Yes case discussed with [facility] Core[facility], who accepts medical admission. Was smoking cessation discussed for >3mins.? @ -No Was critical care preformed (if so, how long)? @ -No Were there social determinants of health that impacted care today? How? (Homelessness, low income, unemployed, alcoholism, drug addiction, transportation, low edu. Level, literacy, decrease access to med. care, skilled nursing, rehab)? @ -No Was there de-escalation of care discussed even if they declined (Discuss DNR or withdrawal of care, Hospice)? DNR status @ -No What co-morbidities impacted this encounter? (DM, HTN, Smoking, COPD, CAD, Cancer, CVA, ARF, Chemo, Hep., AIDS, mental health diagnosis, sleep apnea, morbid obesity)? @ -Cancer, diabetes, hypertension Was patient admitted / discharged? Hospital course, mention meds given and route, prescriptions, significant lab abnormalities, going to OR and other pertinent info. @ -Admitted. 58-year-old female presenting to the ER via EMS with a chief complaint of weakness and low hemoglobin. Patient has a history of receiving blood transfusions. Patient sent from [facility]. History and physical exam completed. Vitals significant for temperature 98.2, heart rate 109, respiratory rate 20, blood pressure 121/69 and oxygen 97% on 2 L. Patient is normally on oxygen. Patient in no signs acute distress and ill-appearing. 2+ pretibial bilateral edema. Lung sounds clear to auscultation bilaterally. Laboratory studies obtained significant for white blood cell count 18.1 with a left shift, hemoglobin 7.1, platelets 1057. Hyponatremic at 125, BUN 31, calcium 8.3, AST 71, alk phos 398 which is likely elevated to bone metastasis. Influenza, COVID, RSV negative. Chest x-ray significant for multiple pulmonary nodules. CT obtained due to abnormal chest x-ray and concern of worsening metastatic disease. CT chest with contrast significant of progression of metastatic metastatic disease with increasing size and number of pulmonary nodules. Patient received IV Dilaudid and Zofran for symptom control in the ER. Admission considered for oncology consult and pain management. 1 unit of packed red blood cells given. Blood cultures obtained. Patient also started on prophylactic Zosyn for leukocytosis. Case discussed with [facility] Core[facility], who accepts medical admission. Upon reevaluation, patient resting comfortably on stretcher in no signs of acute distress. Family at bedside. Results discussed with patient, all questions answered. Patient agreeable for admission. Case discussed with ED attending, Dr. Baxter. Undiagnosed new problem with uncertain prognosis? @ -No Drug Therapy requiring intensive monitoring for toxicity (Heparin, Nitro, Insulin, Cardizem)? @ -No Were any procedures done? @ -No Diagnosis/symptom? @ -Leukocytosis/normocytic normochromic anemia/hyponatremia/metastatic disease Acute, or Chronic, or Acute on Chronic? @ -Acute on chronic Uncomplicated (without systemic symptoms) or Complicated (systemic symptoms)? @ -Complicated Side effects of treatment? @ -No Exacerbation, Progression, or Severe Exacerbation? @ -No Poses a threat to life or bodily function? How? (Chest pain, USA, KS, pneumonia, PE, COPD, DKA, ARF, appy, cholecystitis, CVA, Diverticulitis, Homicidal, Suicidal, threat to staff... and all critical care pts) @ -Yes, cancer - Lab Data Result diagrams: 01/23/24 15:37 01/23/24 15:37 Lab Results 01/23/24 01/23/24 01/23/24 Range/Units 15:37 15:37 18:19 WBC 18.1 H (3.8-10.6) k/uL RBC 2.72 L (3.80-5.40) m/uL Hgb 7.1 L (11.4-16.0) gm/dL Hct 25.1 L (34.0-46.0) % MCV 92.1 (80.0-100.0) fL MCH 26.1 (25.0-35.0) pg MCHC 28.3 L (31.0-37.0) g/dL RDW 17.4 H (11.5-15.5) % Plt Count 1057 H* (150-450) k/uL MPV 7.4 Neutrophils % 90 % Lymphocytes % 4 % Monocytes % 3 % Eosinophils % 1 % Basophils % 0 % Neutrophils # 16.3 H (1.3-7.7) k/uL Lymphocytes # 0.8 L (1.0-4.8) k/uL Monocytes # 0.6 (0-1.0) k/uL Eosinophils # 0.2 (0-0.7) k/uL Basophils # 0.0 (0-0.2) k/uL Hypochromasia Marked Anisocytosis Slight Sodium 125 L (137-145) mmol/L Potassium 5.0 (3.5-5.1) mmol/L Chloride 88 L (98-107) mmol/L Carbon Dioxide 30 (22-30) mmol/L Anion Gap 7 mmol/L BUN 31 H (7-17) mg/dL Creatinine 0.51 L (0.52-1.04) mg/dL Est GFR (CKD-EPI)AfAm >90 (>60 ml/min/1.73 sqM) Est GFR (CKD-EPI)NonAf >90 (>60 ml/min/1.73 sqM) Glucose 205 H (74-99) mg/dL Plasma Lactic Acid Saad (0.7-2.0) mmol/L Calcium 8.3 L (8.4-10.2) mg/dL Total Bilirubin 0.9 (0.2-1.3) mg/dL AST 71 H (14-36) U/L ALT 32 (4-34) U/L Alkaline Phosphatase 398 H (38-126) U/L Total Protein 5.7 L (6.3-8.2) g/dL Albumin 2.3 L (3.5-5.0) g/dL Urine Color Urine Appearance (Clear) Urine pH (5.0-8.0) Ur Specific [place] (1.001-1.035) Urine Protein (Negative) Urine Glucose (UA) (Negative) Urine Ketones (Negative) Urine Blood (Negative) Urine Nitrite (Negative) Urine Bilirubin (Negative) Urine Urobilinogen (<2.0) mg/dL Ur Leukocyte Esterase (Negative) Urine RBC (0-5) /hpf Urine WBC (0-5) /hpf Ur Squamous Epith Cells (0-4) /hpf Urine Yeast (Budding) (None) /hpf Influenza Type A (PCR) (Not Detectd) Influenza Type B (PCR) (Not Detectd) RSV (PCR) (Not Detectd) SARS-CoV-2 (PCR) (Not Detectd) Blood Type A Positive Blood Type Confirm Blood Type Recheck No Previous Record Bld Type Recheck Status CABO Indicated Antibody Screen NEGATIVE Crossmatch See Detail Spec Expiration Date 01/26/2024 - 231801/23/24 01/23/24 01/23/24 Range/Units 18:25 18:25 18:29 WBC (3.8-10.6) k/uL RBC (3.80-5.40) m/uL Hgb (11.4-16.0) gm/dL Hct (34.0-46.0) % MCV (80.0-100.0) fL MCH (25.0-35.0) pg MCHC (31.0-37.0) g/dL RDW (11.5-15.5) % Plt Count (150-450) k/uL MPV Neutrophils % % Lymphocytes % % Monocytes % % Eosinophils % % Basophils % % Neutrophils # (1.3-7.7) k/uL Lymphocytes # (1.0-4.8) k/uL Monocytes # (0-1.0) k/uL Eosinophils # (0-0.7) k/uL Basophils # (0-0.2) k/uL Hypochromasia Anisocytosis Sodium (137-145) mmol/L Potassium (3.5-5.1) mmol/L Chloride (98-107) mmol/L Carbon Dioxide (22-30) mmol/L Anion Gap mmol/L BUN (7-17) mg/dL Creatinine (0.52-1.04) mg/dL Est GFR (CKD-EPI)AfAm (>60 ml/min/1.73 sqM) Est GFR (CKD-EPI)NonAf (>60 ml/min/1.73 sqM) Glucose (74-99) mg/dL Plasma Lactic Acid Saad 1.0 (0.7-2.0) mmol/L Calcium (8.4-10.2) mg/dL Total Bilirubin (0.2-1.3) mg/dL AST (14-36) U/L ALT (4-34) U/L Alkaline Phosphatase (38-126) U/L Total Protein (6.3-8.2) g/dL Albumin (3.5-5.0) g/dL Urine Color Urine Appearance (Clear) Urine pH (5.0-8.0) Ur Specific [place] (1.001-1.035) Urine Protein (Negative) Urine Glucose (UA) (Negative) Urine Ketones (Negative) Urine Blood (Negative) Urine Nitrite (Negative) Urine Bilirubin (Negative) Urine Urobilinogen (<2.0) mg/dL Ur Leukocyte Esterase (Negative) Urine RBC (0-5) /hpf Urine WBC (0-5) /hpf Ur Squamous Epith Cells (0-4) /hpf Urine Yeast (Budding) (None) /hpf Influenza Type A (PCR) Not Detected (Not Detectd) Influenza Type B (PCR) Not Detected (Not Detectd) RSV (PCR) Not Detected (Not Detectd) SARS-CoV-2 (PCR) Not Detected (Not Detectd) Blood Type Blood Type Confirm A Positive Blood Type Recheck Bld Type Recheck Status Antibody Screen Crossmatch Spec Expiration Date 01/23/24 Range/Units 18:50 WBC (3.8-10.6) k/uL RBC (3.80-5.40) m/uL Hgb (11.4-16.0) gm/dL Hct (34.0-46.0) % MCV (80.0-100.0) fL MCH (25.0-35.0) pg MCHC (31.0-37.0) g/dL RDW (11.5-15.5) % Plt Count (150-450) k/uL MPV Neutrophils % % Lymphocytes % % Monocytes % % Eosinophils % % Basophils % % Neutrophils # (1.3-7.7) k/uL Lymphocytes # (1.0-4.8) k/uL Monocytes # (0-1.0) k/uL Eosinophils # (0-0.7) k/uL Basophils # (0-0.2) k/uL Hypochromasia Anisocytosis Sodium (137-145) mmol/L Potassium (3.5-5.1) mmol/L Chloride (98-107) mmol/L Carbon Dioxide (22-30) mmol/L Anion Gap mmol/L BUN (7-17) mg/dL Creatinine (0.52-1.04) mg/dL Est GFR (CKD-EPI)AfAm (>60 ml/min/1.73 sqM) Est GFR (CKD-EPI)NonAf (>60 ml/min/1.73 sqM) Glucose (74-99) mg/dL Plasma Lactic Acid Saad (0.7-2.0) mmol/L Calcium (8.4-10.2) mg/dL Total Bilirubin (0.2-1.3) mg/dL AST (14-36) U/L ALT (4-34) U/L Alkaline Phosphatase (38-126) U/L Total Protein (6.3-8.2) g/dL Albumin (3.5-5.0) g/dL Urine Color Colorless Urine Appearance Clear (Clear) Urine pH 7.5 (5.0-8.0) Ur Specific [place] 1.030 (1.001-1.035) Urine Protein Negative (Negative) Urine Glucose (UA) 4+ H (Negative) Urine Ketones Negative (Negative) Urine Blood Negative (Negative) Urine Nitrite Negative (Negative) Urine Bilirubin Negative (Negative) Urine Urobilinogen <2.0 (<2.0) mg/dL Ur Leukocyte Esterase Moderate H (Negative) Urine RBC 165 H (0-5) /hpf Urine WBC 4 (0-5) /hpf Ur Squamous Epith Cells 1 (0-4) /hpf Urine Yeast (Budding) Many H (None) /hpf Influenza Type A (PCR) (Not Detectd) Influenza Type B (PCR) (Not Detectd) RSV (PCR) (Not Detectd) SARS-CoV-2 (PCR) (Not Detectd) Blood Type Blood Type Confirm Blood Type Recheck Bld Type Recheck Status Antibody Screen Crossmatch Spec Expiration Date - EKG Data -: EKG Interpreted by Dc EKG Comments: EKG taken at 15: 54 showing sinus tachycardia with no acute ST segment or T wave abnormalities. Ventricular rate 100, MD interval 166, QRS duration 121, QT/QTc 346/403. - Radiology Data Radiology results: report reviewed, image reviewed Disposition Clinical Impression: Leukocytosis, Cancer, Hyponatremia, Normocytic normochromic anemia Disposition: ADMITTED IP TO THIS [facility] Condition: Fair Referrals: Erickson Ruiz DO [Primary Care Provider] - 1-2 days Time of Disposition: 18:30
[2024-01-23] MEDS: ACETAMINOPHEN TAB 325 MG TAB PO STA (15:41)
[2024-01-23 15:56] LABS: Anisocytosis Slight; Basophils % (A) 0 %; Eosinophils # (A) 0.2 k/uL (0-0.7); Eosinophils % (A) 1 %; HCT 25.1 % (34.0-46.0); HGB 7.1 gm/dL (11.4-16.0); Hypochromasia Marked; Lymphocytes # (A) 0.8 k/uL (1.0-4.8); Lymphocytes % (A) 4 %; MCH 26.1 pg (25.0-35.0); MCHC 28.3 g/dL (31.0-37.0); MCV 92.1 fL (80.0-100.0); Mean Platelet Volume 7.4; Monocytes # (A) 0.6 k/uL (0-1.0); Monocytes % (A) 3 %; Neutrophils # (A) 16.3 k/uL (1.3-7.7); Neutrophils % (A) 90 %; RBC 2.72 m/uL (3.80-5.40); RDW 17.4 % (11.5-15.5); WBC 18.1 k/uL (3.8-10.6)
[2024-01-23 16:21] LABS: ALT 32 U/L (4-34); African American GFR (CKD) >90 (>60 ml/min/1.73 sqM); Anion Gap 7 mmol/L; Blood Urea Nitrogen 31 mg/dL (7-17); Calcium 8.3 mg/dL (8.4-10.2); Carbon Dioxide 30 mmol/L (22-30); Chloride 88 mmol/L (98-107); Glucose 205 mg/dL (74-99); Non-African American GFR(CKD) >90 (>60 ml/min/1.73 sqM); Sodium 125 mmol/L (137-145); Total Bilirubin 0.9 mg/dL (0.2-1.3)
[2024-01-23 16:30] LABS: Platelet Count 1057 k/uL (150-450)
[2024-01-23 16:34] LABS: AST 71 U/L (14-36); Albumin 2.3 g/dL (3.5-5.0); Alkaline Phosphatase 398 U/L (38-126); Total Protein 5.7 g/dL (6.3-8.2)
--- NOTE | 2024-01-23 16:45 | XR ---
EXAMINATION TYPE: XR chest 2V DATE OF EXAM: 01/23/2024 4:34 PM CLINICAL INDICATION:Female, 58 years old with history of weakness; [facility] COMPARISON: Chest radiographs from 02/13/2022. TECHNIQUE: XR chest 2V Frontal and lateral views of the chest. FINDINGS: Lungs/Pleura: Soft tissue masses are seen throughout the lungs. No evidence for pneumothorax or pleur al effusion. Pulmonary vascularity: Unremarkable. Heart/mediastinum: Cardiomediastinal silhouette is unremarkable. Musculoskeletal: No acute osseous pathology. Other findings: None IMPRESSION: Multiple masses are seen scattered throughout the lungs, new from prior 02/13/2022. Findings concerning for metastatic disease.
[2024-01-23] MEDS ORDERED: RX INFO: IV CONTRAST WAS GIVEN 1 EACH MISC MISCELLANE PRN (16:58)
[2024-01-23] MEDS: HYDROmorphone 0.5 MG/0.5 ML SYRINGE IVP STA (17:10)
--- NOTE | 2024-01-23 18:50 | CT ---
EXAMINATION TYPE: CT chest w con CT DLP: 1032 mGycm, Automated exposure control for dose reduction was used. DATE OF EXAM: 01/23/2024 6:02 PM COMPARISON: Chest radiograph from same day. CT 10/07/2023 CLINICAL INDICATION:Female, 58 years old with history of abn cxr; PH[facility], Abnormal CXR. TECHNIQUE: Multiple axial images were obtained through the chest. Sagittal and coronal reformats were created for review. Contrast used:100 ml mL of Isovue 300 with IV Contrast (None if empty) Oral contrast used: (None if empty) FINDINGS: LUNGS/ PLEURA: Innumerable pulmonary masses and nodules the largest in the right upper lung measuring up to 5.1 cm largest in the left upper lung measuring up to 3.9 cm the largest in the right lower fernando ng measuring up to 42 mm and left lower lung measuring 44 mm. There are greater than 50 nodules. Thes e have increased in both size and number. AIRWAY: Patent and unremarkable. HEART: Size within normal limits. MEDIASTINUM: No gross evidence of adenopathy. VASCULATURE: No aortic aneurysm. MUSCULOSKELETAL: No acute osseous abnormalities SOFT TISSUES/LYMPH NODES: Unremarkable. LOWER NECK: No significant findings. UPPER ABDOMEN: Layering gallstones in the gallbladder lumen. Atrophic left kidney. IMPRESSION: 1. Progression of metastatic disease increased size and number of pulmonary nodules. 2. Cholelithiasis.
[2024-01-23] MEDS ORDERED: NALOXONE 0.4 MG/ML 1 ML VIAL IV PRN (19:18)
[2024-01-23] MEDS ORDERED: HYDROmorphone 0.5 MG/0.5 ML SYRINGE IVP PRN (19:18)
[2024-01-23] MEDS ORDERED: ONDANSETRON 4 MG/2 ML VIAL IVP PRN (19:18)
[2024-01-23 19:20] LABS: Appearance,Urine Clear (Clear); Bilirubin,Urine Negative (Negative); Blood,Urine Negative (Negative); Budding Yeast,Urine Many /hpf; Color,Urine Colorless; Glucose,Urine (UA) 4+ (Negative); Ketones,Urine Negative (Negative); Leukocyte Esterase,Urine Moderate (Negative); Nitrite,Urine Negative (Negative); PH, Urine 7.5 (5.0-8.0); Protein,Urine Negative (Negative); RBC,Urine 165 /hpf (0-5); Squamous Epithelial Cell,Urine 1 /hpf (0-4); Urobilinogen,Urine <2.0 mg/dL (<2.0); WBC,Urine 4 /hpf (0-5)
[2024-01-23] MEDS: SODIUM CHLORIDE 0.9% 1,000 ML IV SCH (23:35)
[2024-01-23] MEDS: PIPERACILLIN-TAZOBACTAM 3.375 GM in SODIUM CHLORIDE 0.9% 100 ML IVPB STA (23:35)
[2024-01-23] MEDS: GABAPENTIN 300 MG CAP PO SCH (23:44)
[2024-01-24 08:03] LABS: Glucose,Whole Blood 208 mg/dL (70-110)
[2024-01-24] MEDS: PANTOPRAZOLE 40 MG TABLET PO SCH (09:03)
[2024-01-24] MEDS: MULTIVITAMINS, THERA 1 EACH TAB PO SCH (09:03)
[2024-01-24] MEDS: INSULIN DETEMIR (LEVEMIR) 100 UNIT/ML SYR SQ SCH (09:03)
[2024-01-24] MEDS: DAPAGLIFLOZIN PROPANEDIOL 5 MG TABLET PO SCH (09:03)
[2024-01-24] MEDS: MAGNESIUM OXIDE 400 MG TAB PO SCH (09:03)
[2024-01-24 10:00] LABS: ALT 26 U/L (8-44); AST 40 U/L (13-35); Albumin 2.1 g/dL (3.8-4.9); Alkaline Phosphatase 302 U/L (41-126); BUN/Creat Ratio 41.83 Ratio (12.00-20.00); Blood Urea Nitrogen 25.1 mg/dL (9.0-27.0); Calcium 8.8 mg/dL (8.7-10.3); Carbon Dioxide 31.6 mmol/L (21.6-31.8); Chloride 88 mmol/L (96-109); Glucose 191 mg/dL (70-110); Potassium 4.1 mmol/L (3.5-5.5); Sodium 130 mmol/L (135-145); Total Bilirubin 0.5 mg/dL (0.3-1.2); Total Protein 5.1 g/dL (6.2-8.2)
[2024-01-24 10:29] LABS: Basophils # (A) 0.02 X 10*3/uL (0.00-0.10); Basophils % (A) 0.1 %; Eosinophils # (A) 0.06 X 10*3/uL (0.04-0.35); Eosinophils % (A) 0.4 %; HCT 21.5 % (37.2-46.3); HGB 6.4 g/dL (12.0-15.0); Lymphocytes # (A) 0.96 X 10*3/uL (0.90-5.00); Lymphocytes % (A) 5.6 %; MCH 27.5 pg (27.0-32.0); MCHC 29.8 g/dL (32.0-37.0); MCV 92.3 FL (80.0-97.0); Mean Platelet Volume 9.4 FL (9.5-12.2); Monocytes # (A) 0.91 X 10*3/uL (0.20-1.00); Monocytes % (A) 5.4 %; NRBC Per 100 WBC 0 X 10*3/uL (0.00-0.01); Neutrophils # (A) 14.87 X 10*3/uL (1.80-7.70); Neutrophils % (A) 87.4 %; Platelet Count 831 X 10*3/uL (140-440); RBC 2.33 X 10*6/uL (4.10-5.20); Stomatocytes 2+
[2024-01-24] MEDS ORDERED: DEXTROSE 50% SYRINGE 50 ML IVP PRN (10:34)
[2024-01-24 12:34] LABS: Glucose,Whole Blood 296 mg/dL (70-110)
[2024-01-24] MEDS: INSULIN ASPART (NovoLOG) 100 UNIT/ML VIAL SQ SCH (12:56)
--- NOTE | 2024-01-24 13:27 | P.CONS ---
History of Present Illness - Reason for Consult Consult date: 01/24/24 Metastatic renal cell carcinoma - History of Present Illness Ms. Spears is a 58-year-old woman with a past medical history significant for morbid obesity resulting in functional quadriplegia and metastatic renal cell carcinoma to the lung and bones diagnosed in March 2022 with disease progression on immunotherapy in October 2023 and was recommended to start axitinib presenting from [facility] for anemia. Routine labs drawn at [facility] noted low hemoglobin and was recommended to present to the ED for additional management. On presentation, vitals were hemodynamically stable and afebrile with oxygen saturation in the mid to upper 90s on 2 to 3 L nasal cannula, which she has been on prior to presentation. Labs are notable for hemoglobin 7.1 (MCV 92.1), WBC 18.1 (ANC 16.3), platelets 1057. CMP was notable for sodium 125, chloride 88, AST 71, alkaline phosphatase 398. Analysis revealed moderate leukocyte Estrace and negative nitrate with 4+ glucose. Viral PCR was negative. Chest x-ray revealed no evidence of acute cardiopulmonary process, but did note multiple masses seen through the lungs concerning for metastatic disease. CT of the chest noted increased size and number of pulmonary nodules compared to CT of the chest from 10/07/2023 concerning for disease progression. In addition to receiving 0.5 mg IV Dilaudid and Tylenol 650 milligrams p.o. x 1, she was started on Zosyn and transition to cefepime 2 g every 8 hours. She was admitted to internal medicine for additional management recommendations. With regards to her recent medical history, she has had extended hospitalizations at [facility] in November 2023 with similar presentation of hyponatremia requiring desmopressin and anemia requiring packed red blood cell transfusions. She had readmission in December 2023 for NSTEMI and was discharged on 12/23/2023. She has had significant sacral decubitus ulcer, which has been limiting the ability to initiate axitinib. Iron studies on 12/20/2023 [facility] revealed ferritin of 5693 with iron saturation 24.3%, consistent with anemia of inflammation. Folate was normal at 14.3 with vitamin B12 454 and elevated MMA, with parentral vitamin B12 given. Repeat CBC today noted hemoglobin 6.4, platelets 831, WBC 17 (ANC 14.87). She received 1 unit of packed red blood cells. Currently, she denies any complaints including no chest or other pain, palpitations, headaches, dizziness, lightheadedness, or fatigue. She did note possible subjective fevers while at [facility] without cough, or dyspnea. She has had urinary catheter in place and is unable to tell if she has had dysuria. Since discharge from [facility] on 12/23/2023, she denies any subjective improvement in energy or strength while at [facility]. Review of Systems 14 point review of systems was conducted with pertinent positives and negatives as noted per HPI Past Medical History Past Medical History: Cancer, CVA/TIA, Diabetes Mellitus, Hypertension History of Any Multi-Drug Resistant Organisms: None Reported Past Surgical History: Orthopedic Surgery Additional Past Surgical History / Comment(s): bone spur right heel surgery, right meniscus surgery Past Anesthesia/Blood Transfusion Reactions: No Reported Reaction Past Psychological History: No Psychological Hx Reported Smoking Status: Former smoker Past Alcohol Use History: None Reported Past Drug Use History: None Reported - Past Family History Sister(s) Family Medical History: Diabetes Mellitus Additional Family Medical History / Comment(s): Both sisters have Type II d iabetetes Mother Family Medical History: Hypertension Additional Family Medical History / Comment(s): Currently in remission from breast cancer Father Additional Family Medical History / Comment(s): no history reported, in car accident Medications and Allergies Home Medications Medication Instructions Recorded Confirmed Type Aspirin 81 mg PO DAILY #30 chewable 08/27/15 01/23/24 Rx Multivitamins, Thera [Multivitamin 1 tab PO DAILY 02/11/22 01/23/24 History (formulary)] Acetaminophen [Tylenol] 650 mg PO Q6H PRN 01/23/24 01/23/24 History Cyanocobalamin (Vitamin B-12) 1,000 mcg PO DAILY 01/23/24 01/23/24 History [Vitamin B-12] Empagliflozin [Jardiance] 10 mg PO DAILY 01/23/24 01/23/24 History Furosemide [Lasix] 40 mg PO BID 01/23/24 01/23/24 History Gabapentin [Neurontin] 300 mg PO BID 01/23/24 01/23/24 History HYDROcodone/APAP 7.5-325MG [[place] 1 tab PO Q4H PRN 01/23/24 01/23/24 History 7.5-325] Insulin Glargine,Hum.rec.anlog 30 units SQ DAILY 01/23/24 01/23/24 History [Insulin Glargine] Insulin Lispro [Admelog Solostar] See Protocol SQ ACHS 01/23/24 01/23/24 History Losartan [Cozaar] 25 mg PO DAILY 01/23/24 01/23/24 History Magnesium Oxide [Mag-Ox] 400 mg PO BID 01/23/24 01/23/24 History Pantoprazole [Protonix] 40 mg PO DAILY 01/23/24 01/23/24 History Sennosides [Senokot] 8.6 mg PO BID PRN 01/23/24 01/23/24 History Sodium Chloride [Saline Mist] 1 spray EA NOSTRIL BID 01/23/24 01/23/24 History Spironolactone [Aldactone] 25 mg PO DAILY 01/23/24 01/23/24 History hydrALAZINE HCL [Apresoline] 50 mg PO TID 01/23/24 01/23/24 History metFORMIN HCL [Glucophage] 500 mg PO BID 01/23/24 01/23/24 History polyethylene glycoL 3350 [Miralax] 17 gm PO DAILY PRN 01/23/24 01/23/24 History Allergies Allergy/AdvReac Type Severity Reaction Status Date / Time ibuprofen Allergy Rash/Hives Verified 02/11/22 14:47 Physical Exam Vitals: Vital Signs Temp Pulse Pulse Resp BP BP Pulse Ox 01/24/24 08:46 98.2 F 97 16 148/82 94 L 01/24/24 02:00 98.7 F 98 16 125/65 97 01/23/24 23:54 97.3 F L 97 16 109/63 96 01/23/24 23:33 98.7 F 99 18 128/79 01/23/24 22:34 98.7 F 101 H 18 129/67 96 01/23/24 20:36 98.8 F 103 H 22 123/66 96 01/23/24 20:16 98.9 F 102 H 22 127/60 94 L 01/23/24 20:06 98.7 F 101 H 22 126/62 95 01/23/24 19:00 98.3 F 106 H 16 95 01/23/24 14:14 98.2 F 109 H 20 121/69 97 Intake and Output 01/23/24 01/24/24 01/24/24 22:59 06:59 14:59 Intake Total 240 1250 Output Total 1000 Balance 240 250 Intake: Intake, IV Titration 700 Amount Piperacillin-Tazobactam 3 100 .375 gm In Sodium Chloride 0.9% 100 ml @ 200 mls/hr IVPB ONCE STA Rx#:[id number] Sodium Chloride 0.9% 1, 600 000 ml @ 75 mls/hr IV . [id number] [facility] Rx#:[id number] Oral 240 240 Blood Product 0 310 Rc As-1 Unit 0 310 [id number] Output: Urine 1000 Other: Voiding Method Indwelling Catheter Indwelling Catheter # Bowel Movements 1 Weight 104.326 kg - Constitutional Intermittently making contact, providing mostly 1 or 2 word answers General appearance: morbidly obese, no acute distress - EENT Eyes: EOMI - Respiratory Respiratory: bilateral: CTA - Cardiovascular Rhythm: regular Heart sounds: normal: S1, S2 leg Peripheral Edema: bilateral: 3+ (Anasarca of the lower extremities bilaterally) - Gastrointestinal General gastrointestinal: no distended, soft, no tenderness - Integumentary Integumentary: pale - Neurologic Neurologic: CNII-XII intact - Psychiatric Psychiatric: A&O x's 3 Results CBC & Chem 7: 01/24/24 06:37 01/24/24 06:37 Labs: Abnormal Lab Results - Last 24 Hours (Table) 01/23/24 01/23/24 01/23/24 Range/Units 15:37 15:37 18:19 WBC 18.1 H (3.8-10.6) k/uL RBC 2.72 L (3.80-5.40) m/uL Hgb 7.1 L (11.4-16.0) gm/dL Hct 25.1 L (34.0-46.0) % MCHC 28.3 L (31.0-37.0) g/dL RDW 17.4 H (11.5-15.5) % Plt Count 1057 H* (150-450) k/uL MPV (9.5-12.2) FL Immature Gran # (0.00-0.04) X 10*3/uL Neutrophils # 16.3 H (1.3-7.7) k/uL Lymphocytes # 0.8 L (1.0-4.8) k/uL Stomatocytes Sodium 125 L (137-145) mmol/L Chloride 88 L (98-107) mmol/L BUN 31 H (7-17) mg/dL Creatinine 0.51 L (0.52-1.04) mg/dL BUN/Creatinine Ratio (12.00-20.00) Ratio Glucose 205 H (74-99) mg/dL POC Glucose (mg/dL) (70-110) mg/dL Calcium 8.3 L (8.4-10.2) mg/dL AST 71 H (14-36) U/L Alkaline Phosphatase 398 H (38-126) U/L Total Protein 5.7 L (6.3-8.2) g/dL Albumin 2.3 L (3.5-5.0) g/dL Albumin/Globulin Ratio (1.60-3.17) Ratio Urine Glucose (UA) (Negative) Ur Leukocyte Esterase (Negative) Urine RBC (0-5) /hpf Urine Yeast (Budding) (None) /hpf Crossmatch See Detail 01/23/24 01/24/24 01/24/24 Range/Units 18:50 06:37 06:37 WBC 17.00 H (3.8-10.6) k/uL RBC 2.33 L (3.80-5.40) m/uL Hgb 6.4 A* (11.4-16.0) gm/dL Hct 21.5 L (34.0-46.0) % MCHC 29.8 L (31.0-37.0) g/dL RDW 18.0 H (11.5-15.5) % Plt Count 831 H (150-450) k/uL MPV 9.4 L (9.5-12.2) FL Immature Gran # 0.18 H (0.00-0.04) X 10*3/uL Neutrophils # 14.87 H (1.3-7.7) k/uL Lymphocytes # (1.0-4.8) k/uL Stomatocytes 2+ A Sodium 130 L (137-145) mmol/L Chloride 88 L (98-107) mmol/L BUN (7-17) mg/dL Creatinine (0.52-1.04) mg/dL BUN/Creatinine Ratio 41.83 H (12.00-20.00) Ratio Glucose 191 H (74-99) mg/dL POC Glucose (mg/dL) (70-110) mg/dL Calcium (8.4-10.2) mg/dL AST 40 H (14-36) U/L Alkaline Phosphatase 302 H (38-126) U/L Total Protein 5.1 L (6.3-8.2) g/dL Albumin 2.1 L (3.5-5.0) g/dL Albumin/Globulin Ratio 0.70 L (1.60-3.17) Ratio Urine Glucose (UA) 4+ H (Negative) Ur Leukocyte Esterase Moderate H (Negative) Urine RBC 165 H (0-5) /hpf Urine Yeast (Budding) Many H (None) /hpf Crossmatch 01/24/24 Range/Units 08:01 WBC (3.8-10.6) k/uL RBC (3.80-5.40) m/uL Hgb (11.4-16.0) gm/dL Hct (34.0-46.0) % MCHC (31.0-37.0) g/dL RDW (11.5-15.5) % Plt Count (150-450) k/uL MPV (9.5-12.2) FL Immature Gran # (0.00-0.04) X 10*3/uL Neutrophils # (1.3-7.7) k/uL Lymphocytes # (1.0-4.8) k/uL Stomatocytes Sodium (137-145) mmol/L Chloride (98-107) mmol/L BUN (7-17) mg/dL Creatinine (0.52-1.04) mg/dL BUN/Creatinine Ratio (12.00-20.00) Ratio Glucose (74-99) mg/dL POC Glucose (mg/dL) 208 H (70-110) mg/dL Calcium (8.4-10.2) mg/dL AST (14-36) U/L Alkaline Phosphatase (38-126) U/L Total Protein (6.3-8.2) g/dL Albumin (3.5-5.0) g/dL Albumin/Globulin Ratio (1.60-3.17) Ratio Urine Glucose (UA) (Negative) Ur Leukocyte Esterase (Negative) Urine RBC (0-5) /hpf Urine Yeast (Budding) (None) /hpf Crossmatch Abdominal x-ray: report reviewed CT scan - chest: report reviewed Assessment and Plan (1) Metastatic renal cell carcinoma to lung Current Visit: Yes Status: Acute Code(s): C78.00 - SECONDARY MALIGNANT NEOPLASM OF UNSPECIFIED LUNG; C64.9 - MALIGNANT NEOPLASM OF UNSP KIDNEY, EXCEPT RENAL PELVIS SNOMED Code(s): 02577645 (2) Secondary thrombocytosis Current Visit: Yes Status: Acute Code(s): D75.838 - OTHER THROMBOCYTOSIS SNOMED Code(s): 147124190 (3) Leukocytosis Current Visit: Yes Status: Acute Code(s): D72.829 - ELEVATED WHITE BLOOD CELL COUNT, UNSPECIFIED SNOMED Code(s): 414159582 (4) Normocytic normochromic anemia Current Visit: Yes Status: Acute Code(s): D64.9 - ANEMIA, UNSPECIFIED SNOMED Code(s): 78759044 Plan: #Normocytic normochromic anemia, neutrophilic leukocytosis, thrombocytosis -Noted on admission with anemia not significantly changed since measurements at [facility] in December 2023 -She was given parenteral vitamin B12 at that time due to potential functional deficit and vitamin B12 with elevated methylmalonic acid did not result in significant improvement in hemoglobin -I believe she has anemia of inflammation along with reactive neutrophilic leukocytosis and thrombocytosis secondary to metastatic malignancy -Follow-up infectious workup and continue empiric antibiotics to rule out and treat infectious etiology -Repeat iron studies, vitamin B12/methylmalonic acid, folic acid, and copper ordered today -Transfuse for hemoglobin less than 7 #Metastatic renal cell carcinoma -Received 4 cycles of Opdivo and Yervoy resulting in stable disease and contin ued with maintenance Opdivo -CT scans in September 2023 noted disease progression with recommendation to start VEGF inhibitor axitinib -She has had multiple hospitalizations over the past 2 to 3 months from complications of her other medical comorbidities with axitinib being on hold. Particularly due to large sacral decubitus ulcer, where this medication would not allow proper healing -CT of the chest on admission noted disease progression of lung nodules noted in September 2023 -Given her multiple hospitalizations and lack of clinical improvement, I am concerned about her ability to receive treatment going forward -If there is no evidence of infectious etiology, she would likely benefit from g oals of care discussion. I did inform her of the results of the CT of the chest, to which she did not have much of a verbal response -For now, we will continue with current treatment plan and medical optimization Jackie Singh MD
[2024-01-24 15:17] VITALS: BMI 39.4
[2024-01-24] MEDS: CEFEPIME 2 GM in SODIUM CHLORIDE 0.9% 100 ML IVPB SCH (16:02)
[2024-01-24 17:25] LABS: Glucose,Whole Blood 199 mg/dL (70-110)
[2024-01-24 20:38] LABS: Glucose,Whole Blood 248 mg/dL (70-110)
[2024-01-24] MEDS: HYDROcodone/APAP 7.5-325MG 1 EACH TAB PO PRN (21:09)
[2024-01-24 23:02] LABS: % Iron Saturation 17.39 (12.00-45.00)
--- NOTE | 2024-01-24 23:44 | P.HPIM ---
History of Present Illness H&P Date: 01/24/24 Chief Complaint: Abnormal lab Patient is a 58-year-old female with a known history of metastatic renal cell carcinoma with mets to the lungs and bones, currently not on any immunotherapy, history of CVA/TIA, morbid obesity, hypertension and a prior history of smoking was sent from [facility] due to uremia and generalized weakness. Patient was previously admitted to [facility], requiring PRBC transfusion. Patient was previously on follow-up with Dr. Singh. Denies any hematemesis or melena. No complaints of chest pain. Patient does have shortness of breath at baseline.. No cough or sputum production. Denies any dysuria or hematuria. Patient usually wears oxygen at home. Patient is mainly bedridden due to morbid obesity and functional quadriplegia. Chest x-ray showed multiple masses are seen scattered throughout the lungs. New from prior 02/13/2022. Findings concerning for metastatic disease. EKG showed sinus tachycardia CT chest showed progression of metastatic disease increases in size and number of pulmonary nodules. Cholelithiasis. Laboratory data showed WBC 18.1 hemoglobin 7.1 and dropped down to 6.4 platelets 1057 Sodium 125 potassium 5.0 chloride 88 bicarb is 30 BUN 31 and creatinine 0.51 and blood sugar 205 calcium 8.3 AST 71 ALT 32 alk phos 398 and albumin 2.3 Urinalysis showed moderate leukocyte esterase with WBC count 4 Influenza A B RSV and COVID-19 PCR not detected. Review of Systems Constitutional: Patient denies any fever or chills . Generalized weakness and fatigue.. Abdomen: Patient denied nausea vomiting and diarrhea and abdominal pain. Cardiovascular: Patient denies any chest pain or short of breath no palpitations. Respiratory: patient denied any cough is from production. No shortness of breath Neurologic: Patient denied any numbness or tingling headache. Musculoskeletal: Patient denies any complaints of joint swelling or deformity. Skin: Negative Psychiatric: Negative Endocrine: No heat or cold intolerance. No recent weight gain. Genitourinary: No dysuria or hematuria. All other 14 point ROS negative except the above Past Medical History Past Medical History: Cancer, CVA/TIA, Diabetes Mellitus, Hypertension History of Any Multi-Drug Resistant Organisms: None Reported Past Surgical History: Orthopedic Surgery Additional Past Surgical History / Comment(s): bone spur right heel surgery, right meniscus surgery Past Anesthesia/Blood Transfusion Reactions: No Reported Reaction Past Psychological History: No Psychological Hx Reported Smoking Status: Former smoker Past Alcohol Use History: None Reported Past Drug Use History: None Reported - Past Family History Sister(s) Family Medical History: Diabetes Mellitus Additional Family Medical History / Comment(s): Both sisters have Type II diabetetes Mother Family Medical History: Hypertension Additional Family Medical History / Comment(s): Currently in remission from breast cancer Father Additional Family Medical History / Comment(s): no history reported, in car accident Medications and Allergies Home Medications Medication Instructions Recorded Confirmed Type Aspirin 81 mg PO DAILY #30 chewable 08/27/15 01/23/24 Rx Multivitamins, Thera [Multivitamin 1 tab PO DAILY 02/11/22 01/23/24 History (formulary)] Acetaminophen [Tylenol] 650 mg PO Q6H PRN 01/23/24 01/23/24 History Cyanocobalamin (Vitamin B-12) 1,000 mcg PO DAILY 01/23/24 01/23/24 History [Vitamin B-12] Empagliflozin [Jardiance] 10 mg PO DAILY 01/23/24 01/23/24 History Furosemide [Lasix] 40 mg PO BID 01/23/24 01/23/24 History Gabapentin [Neurontin] 300 mg PO BID 01/23/24 01/23/24 History HYDROcodone/APAP 7.5-325MG [[place] 1 tab PO Q4H PRN 01/23/24 01/23/24 History 7.5-325] Insulin Glargine,Hum.rec.anlog 30 units SQ DAILY 01/23/24 01/23/24 History [Insulin Glargine] Insulin Lispro [Admelog Solostar] See Protocol SQ ACHS 01/23/24 01/23/24 History Losartan [Cozaar] 25 mg PO DAILY 01/23/24 01/23/24 History Magnesium Oxide [Mag-Ox] 400 mg PO BID 01/23/24 01/23/24 History Pantoprazole [Protonix] 40 mg PO DAILY 01/23/24 01/23/24 History Sennosides [Senokot] 8.6 mg PO BID PRN 01/23/24 01/23/24 History Sodium Chloride [Saline Mist] 1 spray EA NOSTRIL BID 01/23/24 01/23/24 History Spironolactone [Aldactone] 25 mg PO DAILY 01/23/24 01/23/24 History hydrALAZINE HCL [Apresoline] 50 mg PO TID 01/23/24 01/23/24 History metFORMIN HCL [Glucophage] 500 mg PO BID 01/23/24 01/23/24 History polyethylene glycoL 3350 [Miralax] 17 gm PO DAILY PRN 01/23/24 01/23/24 History Allergies Allergy/AdvReac Type Severity Reaction Status Date / Time ibuprofen Allergy Rash/Hives Verified 02/11/22 14:47 Physical Exam Vitals: Vital Signs Temp Pulse Pulse Resp BP BP Pulse Ox 01/24/24 08:46 98.2 F 97 16 148/82 94 L 01/24/24 02:00 98.7 F 98 16 125/65 97 01/23/24 23:54 97.3 F L 97 16 109/63 96 01/23/24 23:33 98.7 F 99 18 128/79 01/23/24 22:34 98.7 F 101 H 18 129/67 96 01/23/24 20:36 98.8 F 103 H 22 123/66 96 01/23/24 20:16 98.9 F 102 H 22 127/60 94 L 01/23/24 20:06 98.7 F 101 H 22 126/62 95 01/23/24 19:00 98.3 F 106 H 16 95 01/23/24 14:14 98.2 F 109 H 20 121/69 97 Intake and Output 01/23/24 01/24/24 01/24/24 22:59 06:59 14:59 Intake Total 240 1250 Output Total 1000 Balance 240 250 Intake: Intake, IV Titration 700 Amount Piperacillin-Tazobactam 3 100 .375 gm In Sodium Chloride 0.9% 100 ml @ 200 mls/hr IVPB ONCE STA Rx#:[id number] Sodium Chloride 0.9% 1, 600 000 ml @ 75 mls/hr IV . [id number] [facility] Rx#:[id number] Oral 240 240 Blood Product 0 310 Rc As-1 Unit 0 310 [id number] Output: Urine 1000 Other: Voiding Method Indwelling Catheter Indwelling Catheter # Bowel Movements 1 Weight 104.326 kg PHYSICAL EXAMINATION: Patient is lying in the bed, no acute distress, awake alert and oriented. Morbidly obese. HEENT: Normocephalic. Neck is supple. Pupils reactive. Nostrils clear. Oral cavity is moist. Neck reveals no JVD, carotid bruits, or thyromegaly. CHEST EXAMINATION: Trachea is central. Symmetrical expansion. Bibasilar diminished sounds. No wheezing. n. CARDIAC: Normal S1, S2 with no gallops. No murmurs ABDOMEN: Soft. Bowel sounds normal. No organomegaly. No abdominal bruits. Extremities: reveal no edema. No clubbing or cyanosis Neurologically awake, alert, oriented x 2-3 able to move her extremities while in bed. No gross focal deficits noted Skin: No rash or skin lesions. Psychiatric: Coperative. Nonsuicidal. Could not be assessed completely Musculoskeletal: No joint swelling or deformity. Results CBC & Chem 7: 01/25/24 03:42 01/25/24 03:42 Labs: Abnormal Lab Results - Last 24 Hours (Table) 01/23/24 01/23/24 01/23/24 Range/Units 15:37 15:37 18:19 WBC 18.1 H (3.8-10.6) k/uL RBC 2.72 L (3.80-5.40) m/uL Hgb 7.1 L (11.4-16.0) gm/dL Hct 25.1 L (34.0-46.0) % MCHC 28.3 L (31.0-37.0) g/dL RDW 17.4 H (11.5-15.5) % Plt Count 1057 H* (150-450) k/uL MPV (9.5-12.2) FL Immature Gran # (0.00-0.04) X 10*3/uL Neutrophils # 16.3 H (1.3-7.7) k/uL Lymphocytes # 0.8 L (1.0-4.8) k/uL Stomatocytes Sodium 125 L (137-145) mmol/L Chloride 88 L (98-107) mmol/L BUN 31 H (7-17) mg/dL Creatinine 0.51 L (0.52-1.04) mg/dL BUN/Creatinine Ratio (12.00-20.00) Ratio Glucose 205 H (74-99) mg/dL POC Glucose (mg/dL) (70-110) mg/dL Calcium 8.3 L (8.4-10.2) mg/dL AST 71 H (14-36) U/L Alkaline Phosphatase 398 H (38-126) U/L Total Protein 5.7 L (6.3-8.2) g/dL Albumin 2.3 L (3.5-5.0) g/dL Albumin/Globulin Ratio (1.60-3.17) Ratio Urine Glucose (UA) (Negative) Ur Leukocyte Esterase (Negative) Urine RBC (0-5) /hpf Urine Yeast (Budding) (None) /hpf Crossmatch See Detail 01/23/24 01/24/24 01/24/24 Range/Units 18:50 06:37 06:37 WBC 17.00 H (3.8-10.6) k/uL RBC 2.33 L (3.80-5.40) m/uL Hgb 6.4 A* (11.4-16.0) gm/dL Hct 21.5 L (34.0-46.0) % MCHC 29.8 L (31.0-37.0) g/dL RDW 18.0 H (11.5-15.5) % Plt Count 831 H (150-450) k/uL MPV 9.4 L (9.5-12.2) FL Immature Gran # 0.18 H (0.00-0.04) X 10*3/uL Neutrophils # 14.87 H (1.3-7.7) k/uL Lymphocytes # (1.0-4.8) k/uL Stomatocytes 2+ A Sodium 130 L (137-145) mmol/L Chloride 88 L (98-107) mmol/L BUN (7-17) mg/dL Creatinine (0.52-1.04) mg/dL BUN/Creatinine Ratio 41.83 H (12.00-20.00) Ratio Glucose 191 H (74-99) mg/dL POC Glucose (mg/dL) (70-110) mg/dL Calcium (8.4-10.2) mg/dL AST 40 H (14-36) U/L Alkaline Phosphatase 302 H (38-126) U/L Total Protein 5.1 L (6.3-8.2) g/dL Albumin 2.1 L (3.5-5.0) g/dL Albumin/Globulin Ratio 0.70 L (1.60-3.17) Ratio Urine Glucose (UA) 4+ H (Negative) Ur Leukocyte Esterase Moderate H (Negative) Urine RBC 165 H (0-5) /hpf Urine Yeast (Budding) Many H (None) /hpf Crossmatch 01/24/24 Range/Units 08:01 WBC (3.8-10.6) k/uL RBC (3.80-5.40) m/uL Hgb (11.4-16.0) gm/dL Hct (34.0-46.0) % MCHC (31.0-37.0) g/dL RDW (11.5-15.5) % Plt Count (150-450) k/uL MPV (9.5-12.2) FL Immature Gran # (0.00-0.04) X 10*3/uL Neutrophils # (1.3-7.7) k/uL Lymphocytes # (1.0-4.8) k/uL Stomatocytes Sodium (137-145) mmol/L Chloride (98-107) mmol/L BUN (7-17) mg/dL Creatinine (0.52-1.04) mg/dL BUN/Creatinine Ratio (12.00-20.00) Ratio Glucose (74-99) mg/dL POC Glucose (mg/dL) 208 H (70-110) mg/dL Calcium (8.4-10.2) mg/dL AST (14-36) U/L Alkaline Phosphatase (38-126) U/L Total Protein (6.3-8.2) g/dL Albumin (3.5-5.0) g/dL Albumin/Globulin Ratio (1.60-3.17) Ratio Urine Glucose (UA) (Negative) Ur Leukocyte Esterase (Negative) Urine RBC (0-5) /hpf Urine Yeast (Budding) (None) /hpf Crossmatch Thrombosis Risk Factor Assmnt - DVT/VTE Prophylaxis DVT/VTE Prophylaxis: Pharmacologic Prophylaxis ordered - Choose All That Apply Any of the Below Risk Factors Present?: Yes Each Factor Represents 1 point: Age 41-60 years, Obesity (BMI >25) Other Risk Factors: No Other congenital or acquired thrombophilia - If yes, enter type in comment: No Thrombosis Risk Factor Assessment Total Risk Factor Score: 2 Thrombosis Risk Factor Assessment Level: Low Risk Assessment and Plan Assessment: Metastatic renal cell carcinoma with mets to lung with heparin subcu and bone. Currently not on immunotherapy Normocytic normochromic anemia, neutrophilic leukocytosis and thrombocytosis likely due to metastatic malignancy. Hypovolemic hyponatremia Hyperglycemia Hypertension Morbid obesity with BMI 39.40 Prior history of smoking DVT prophylaxis with Lovenox subcu Plan: Patient will be continued on gentle IV hydration. Encourage oral intake. Transfuse PRBC i to keep hemoglobin greater than 7. Continue with insulin regimen and sliding scale and metformin. Patient will be continued on antibiotics cefepime for possible pneumonia. Procalcitonin level was ordered. Follow-up sodium level and monitor H&H. Repeat anemia workup was ordered. Oncology is on board. Will discuss with patient and family regarding goals of care. Prognosis is poor at this time. Time with Patient: Greater than 30
[2024-01-25 07:11] LABS: Glucose,Whole Blood 141 mg/dL (70-110)
[2024-01-25 09:43] LABS: Basophils # (A) 0.01 X 10*3/uL (0.00-0.10); Basophils % (A) 0.1 %; Eosinophils # (A) 0.03 X 10*3/uL (0.04-0.35); Eosinophils % (A) 0.2 %; HCT 23.1 % (37.2-46.3); HGB 6.8 g/dL (12.0-15.0); Lymphocytes # (A) 1.38 X 10*3/uL (0.90-5.00); MCHC 29.4 g/dL (32.0-37.0); MCV 91.7 FL (80.0-97.0); Monocytes % (A) 5.1 %; NRBC Per 100 WBC 0 X 10*3/uL (0.00-0.01); Neutrophils # (A) 16.99 X 10*3/uL (1.80-7.70); Neutrophils % (A) 86.6 %; Platelet Count 720 X 10*3/uL (140-440); RBC 2.52 X 10*6/uL (4.10-5.20); RDW 17.5 % (11.5-14.5); WBC 19.61 X 10*3/uL (4.50-10.00)
[2024-01-25 09:49] LABS: ALT 34 U/L (8-44); AST 54 U/L (13-35); Albumin 2.1 g/dL (3.8-4.9); Alkaline Phosphatase 382 U/L (41-126); Blood Urea Nitrogen 24.9 mg/dL (9.0-27.0); Calcium 8.9 mg/dL (8.7-10.3); Carbon Dioxide 29.9 mmol/L (21.6-31.8); Chloride 89 mmol/L (96-109); Glucose 133 mg/dL (70-110); Sodium 131 mmol/L (135-145); Total Bilirubin 0.5 mg/dL (0.3-1.2); Total Protein 5.1 g/dL (6.2-8.2)
[2024-01-25 12:35] LABS: Glucose,Whole Blood 230 mg/dL (70-110)
[2024-01-25] MEDS: ENOXAPARIN 30 MG/0.3 ML SYRINGE SQ SCH (13:10)
[2024-01-25 17:15] LABS: Glucose,Whole Blood 236 mg/dL (70-110)
[2024-01-25 20:03] LABS: Glucose,Whole Blood 218 mg/dL (70-110)
[2024-01-25] MEDS: metFORMIN 500 MG TAB PO SCH (21:05)
[2024-01-26 00:37] LABS: Glucose,Whole Blood 162 mg/dL (70-110)
[2024-01-26 06:58] LABS: Glucose,Whole Blood 102 mg/dL (70-110)
[2024-01-26 12:17] LABS: Glucose,Whole Blood 195 mg/dL (70-110)
[2024-01-26 16:01] LABS: Anisocytosis Slight; HCT 29.5 % (34.0-46.0); HGB 8.3 gm/dL (11.4-16.0); Hypochromasia Marked; MCHC 28.1 g/dL (31.0-37.0); MCV 92.3 fL (80.0-100.0); Mean Platelet Volume 7.2; Platelet Count 660 k/uL (150-450); Poikilocytosis Slight; RBC 3.19 m/uL (3.80-5.40); RDW 17.5 % (11.5-15.5); WBC 18.4 k/uL (3.8-10.6)
[2024-01-26 17:07] LABS: Glucose,Whole Blood 207 mg/dL (70-110)
[2024-01-26 20:13] LABS: Glucose,Whole Blood 268 mg/dL (70-110)
--- NOTE | 2024-01-26 23:03 | P.PN ---
Subjective Progress Note Date: 01/25/24 Patient is a 58-year-old female with a known history of metastatic renal cell carcinoma with mets to the lungs and bones, currently not on any immunotherapy, history of CVA/TIA, morbid obesity, hypertension and a prior history of smoking was sent from [facility] due to uremia and generalized weakness. Patient was previously admitted to [facility], requiring PRBC transfusion. Patient was previously on follow-up with Dr. Singh. Denies any hematemesis or melena. No complaints of chest pain. Patient does have shortness of breath at baseline.. No cough or sputum production. Denies any dysuria or hematuria. Patient usually wears oxygen at home. Patient is mainly bedridden due to morbid obesity and functional quadriplegia. Chest x-ray showed multiple masses are seen scattered throughout the lungs. New from prior 02/13/2022. Findings concerning for metastatic disease. EKG showed sinus tachycardia CT chest showed progression of metastatic disease increases in size and number of pulmonary nodules. Cholelithiasis. Laboratory data showed WBC 18.1 hemoglobin 7.1 and dropped down to 6.4 platelets 1057 Sodium 125 potassium 5.0 chloride 88 bicarb is 30 BUN 31 and creatinine 0.51 and blood sugar 205 calcium 8.3 AST 71 ALT 32 alk phos 398 and albumin 2.3 Urinalysis showed moderate leukocyte esterase with WBC count 4 Influenza A B RSV and COVID-19 PCR not detected. 01/25/2024 Patient is lying in the bed. Awake alert and oriented. No complaints of chest pain or shortness. Currently requiring 2 L oxygen via nasal cannula. Pain is fairly controlled. No headache or dizziness or lightheadedness. Laboratory data showed WBC still elevated at 19.6 hemoglobin 6.8 and is being transfused with 1 unit of PRBC today, platelets 720 sodium 131 potassium 4.0 chloride 89 bicarb is 29.9 BUN 24.9 and creatinine 0.6 and blood sugar 133 and calcium 6.7 alk phos 382 Patient remains on cefepime. Procalcitonin level is pending. Current medications reviewed. Objective - Vital Signs Vital signs: Vital Signs Temp 98.3 F 01/25/24 07:21 Pulse 93 01/25/24 07:21 Resp 18 01/25/24 07:21 BP 144/73 01/25/24 07:21 Pulse Ox 96 01/25/24 07:21 FiO2 Intake & Output 01/24/24 01/25/24 01/25/24 18:59 06:59 18:59 Intake Total 1550 2009 Output Total 1725 1200 700 Balance -175 810 -700 Weight 104.326 kg Intake: Intake, IV Titration 700 Amount Cefepime 2 gm In Sodium 100 Chloride 0.9% 100 ml @ 25 mls/hr IVPB Q8HR CAT Rx# :[id number] Sodium Chloride 0.9% 1, 600 000 ml @ 75 mls/hr IV . [id number] CAT Rx#:[id number] Oral 1240 1310 Blood Product 310 Rc As-1 Unit 310 [id number] Output: Urine 1725 1200 700 Other: Voiding Method Indwelling Catheter Indwelling Catheter Indwelling Catheter # Bowel Movements 1 - Exam PHYSICAL EXAMINATION: Patient is lying in the bed, no acute distress, awake alert and oriented. Morbidly obese. HEENT: Normocephalic. Neck is supple. Pupils reactive. Nostrils clear. Oral cavity is moist. Neck reveals no JVD, carotid bruits, or thyromegaly. CHEST EXAMINATION: Trachea is central. Symmetrical expansion. Bibasilar diminished sounds. No wheezing. CARDIAC: Normal S1, S2 with no gallops. No murmurs ABDOMEN: Soft. Bowel sounds normal. No organomegaly. No abdominal bruits. Extremities: reveal no edema. No clubbing or cyanosis Neurologically awake, alert, oriented x 2-3 able to move her extremities while in bed. No gross focal deficits noted Skin: No rash or skin lesions. Psychiatric: Coperative. Nonsuicidal. Could not be assessed completely Musculoskeletal: No joint swelling or deformity. - Labs CBC & Chem 7: 01/26/24 15:43 01/25/24 03:42 Labs: Abnormal Lab Results - Last 24 Hours (Table) 01/23/24 01/24/24 01/24/24 Range/Units 18:19 12:33 12:44 WBC (4.50-10.00) X 10*3/uL RBC (4.10-5.20) X 10*6/uL Hgb (12.0-15.0) g/dL Hct (37.2-46.3) % MCHC (32.0-37.0) g/dL RDW (11.5-14.5) % Plt Count (140-440) X 10*3/uL MPV (9.5-12.2) FL Immature Gran # (0.00-0.04) X 10*3/uL Neutrophils # (1.80-7.70) X 10*3/uL Eosinophils # (0.04-0.35) X 10*3/uL Haptoglobin (31.2-198.0) mg/dL Sodium (135-145) mmol/L Chloride (96-109) mmol/L Anion Gap (4.00-12.00) mmol/L BUN/Creatinine Ratio (12.00-20.00) Ratio Glucose (70-110) mg/dL POC Glucose (mg/dL) 296 H (70-110) mg/dL Hemoglobin A1c (<=6.0) % Iron 16 L (50-170) UG/DL TIBC 92 L (228-460) UG/DL Transferrin 66.0 L (204.0-354.0) mg/dL Ferritin 4909.0 H (10.0-291.0) ng/mL AST (13-35) U/L Alkaline Phosphatase (41-126) U/L Total Protein (6.2-8.2) g/dL Albumin (3.8-4.9) g/dL Albumin/Globulin Ratio (1.60-3.17) Ratio Vitamin B12 970.0 H (200.0-944.0) pg/mL Crossmatch See Detail 01/24/24 01/24/24 01/24/24 Range/Units 12:44 17:25 20:36 WBC (4.50-10.00) X 10*3/uL RBC (4.10-5.20) X 10*6/uL Hgb (12.0-15.0) g/dL Hct (37.2-46.3) % MCHC (32.0-37.0) g/dL RDW (11.5-14.5) % Plt Count (140-440) X 10*3/uL MPV (9.5-12.2) FL Immature Gran # (0.00-0.04) X 10*3/uL Neutrophils # (1.80-7.70) X 10*3/uL Eosinophils # (0.04-0.35) X 10*3/uL Haptoglobin 551.0 H (31.2-198.0) mg/dL Sodium (135-145) mmol/L Chloride (96-109) mmol/L Anion Gap (4.00-12.00) mmol/L BUN/Creatinine Ratio (12.00-20.00) Ratio Glucose (70-110) mg/dL POC Glucose (mg/dL) 199 H 248 H (70-110) mg/dL Hemoglobin A1c (<=6.0) % Iron (50-170) UG/DL TIBC (228-460) UG/DL Transferrin (204.0-354.0) mg/dL Ferritin (10.0-291.0) ng/mL AST (13-35) U/L Alkaline Phosphatase (41-126) U/L Total Protein (6.2-8.2) g/dL Albumin (3.8-4.9) g/dL Albumin/Globulin Ratio (1.60-3.17) Ratio Vitamin B12 (200.0-944.0) pg/mL Crossmatch 01/25/24 01/25/24 01/25/24 Range/Units 03:42 03:42 03:42 WBC 19.61 H (4.50-10.00) X 10*3/uL RBC 2.52 L (4.10-5.20) X 10*6/uL Hgb 6.8 A* (12.0-15.0) g/dL Hct 23.1 L (37.2-46.3) % MCHC 29.4 L (32.0-37.0) g/dL RDW 17.5 H (11.5-14.5) % Plt Count 720 H (140-440) X 10*3/uL MPV 9.0 L (9.5-12.2) FL Immature Gran # 0.20 H (0.00-0.04) X 10*3/uL Neutrophils # 16.99 H (1.80-7.70) X 10*3/uL Eosinophils # 0.03 L (0.04-0.35) X 10*3/uL Haptoglobin (31.2-198.0) mg/dL Sodium 131 L (135-145) mmol/L Chloride 89 L (96-109) mmol/L Anion Gap 12.10 H (4.00-12.00) mmol/L BUN/Creatinine Ratio 41.50 H (12.00-20.00) Ratio Glucose 133 H (70-110) mg/dL POC Glucose (mg/dL) (70-110) mg/dL Hemoglobin A1c 6.7 H (<=6.0) % Iron (50-170) UG/DL TIBC (228-460) UG/DL Transferrin (204.0-354.0) mg/dL Ferritin (10.0-291.0) ng/mL AST 54 H (13-35) U/L Alkaline Phosphatase 382 H (41-126) U/L Total Protein 5.1 L (6.2-8.2) g/dL Albumin 2.1 L (3.8-4.9) g/dL Albumin/Globulin Ratio 0.70 L (1.60-3.17) Ratio Vitamin B12 (200.0-944.0) pg/mL Crossmatch 01/25/24 Range/Units 07:10 WBC (4.50-10.00) X 10*3/uL RBC (4.10-5.20) X 10*6/uL Hgb (12.0-15.0) g/dL Hct (37.2-46.3) % MCHC (32.0-37.0) g/dL RDW (11.5-14.5) % Plt Count (140-440) X 10*3/uL MPV (9.5-12.2) FL Immature Gran # (0.00-0.04) X 10*3/uL Neutrophils # (1.80-7.70) X 10*3/uL Eosinophils # (0.04-0.35) X 10*3/uL Haptoglobin (31.2-198.0) mg/dL Sodium (135-145) mmol/L Chloride (96-109) mmol/L Anion Gap (4.00-12.00) mmol/L BUN/Creatinine Ratio (12.00-20.00) Ratio Glucose (70-110) mg/dL POC Glucose (mg/dL) 141 H (70-110) mg/dL Hemoglobin A1c (<=6.0) % Iron (50-170) UG/DL TIBC (228-460) UG/DL Transferrin (204.0-354.0) mg/dL Ferritin (10.0-291.0) ng/mL AST (13-35) U/L Alkaline Phosphatase (41-126) U/L Total Protein (6.2-8.2) g/dL Albumin (3.8-4.9) g/dL Albumin/Globulin Ratio (1.60-3.17) Ratio Vitamin B12 (200.0-944.0) pg/mL Crossmatch Microbiology - Last 24 Hours (Table) 01/23/24 19:50 Blood Culture - Preliminary Blood 01/23/24 19:35 Blood Culture - Preliminary Blood Assessment and Plan Assessment: Metastatic renal cell carcinoma with mets to lung with heparin subcu and bone. Currently not on immunotherapy Normocytic normochromic anemia, neutrophilic leukocytosis and thrombocytosis likely due to metastatic malignancy. Hypovolemic hyponatremia Hyperglycemia Hypertension Morbid obesity with BMI 39.40 Prior history of smoking DVT prophylaxis with Lovenox subcu Plan: Patient will be continued on gentle IV hydration. Encourage oral intake. Transfuse PRBC to keep hemoglobin greater than 7. Continue with insulin regimen and sliding scale and metformin. Patient will be continued on antibiotics cefepime for possible pneumonia. Procalcitonin level was ordered. Follow-up sodium level and monitor H&H. Repeat anemia workup was ordered. Oncology is on board. Current CODE STATUS is DNR/DNI. Patient states that she is not willing to sign up for hospice and would like to be transferred back to ECF. Prognosis is poor at this time. Time with Patient: Greater than 30
--- NOTE | 2024-01-26 23:07 | P.PN ---
Subjective Progress Note Date: 01/26/24 Patient is a 58-year-old female with a known history of metastatic renal cell carcinoma with mets to the lungs and bones, currently not on any immunotherapy, history of CVA/TIA, morbid obesity, hypertension and a prior history of smoking was sent from [facility] due to uremia and generalized weakness. Patient was previously admitted to [facility], requiring PRBC transfusion. Patient was previously on follow-up with Dr. Singh. Denies any hematemesis or melena. No complaints of chest pain. Patient does have shortness of breath at baseline.. No cough or sputum production. Denies any dysuria or hematuria. Patient usually wears oxygen at home. Patient is mainly bedridden due to morbid obesity and functional quadriplegia. Chest x-ray showed multiple masses are seen scattered throughout the lungs. New from prior 02/13/2022. Findings concerning for metastatic disease. EKG showed sinus tachycardia CT chest showed progression of metastatic disease increases in size and number of pulmonary nodules. Cholelithiasis. Laboratory data showed WBC 18.1 hemoglobin 7.1 and dropped down to 6.4 platelets 1057 Sodium 125 potassium 5.0 chloride 88 bicarb is 30 BUN 31 and creatinine 0.51 and blood sugar 205 calcium 8.3 AST 71 ALT 32 alk phos 398 and albumin 2.3 Urinalysis showed moderate leukocyte esterase with WBC count 4 Influenza A B RSV and COVID-19 PCR not detected. 01/25/2024 Patient is lying in the bed. Awake alert and oriented. No complaints of chest pain or shortness. Currently requiring 2 L oxygen via nasal cannula. Pain is fairly controlled. No headache or dizziness or lightheadedness. Laboratory data showed WBC still elevated at 19.6 hemoglobin 6.8 and is being transfused with 1 unit of PRBC today, platelets 720 sodium 131 potassium 4.0 chloride 89 bicarb is 29.9 BUN 24.9 and creatinine 0.6 and blood sugar 133 and calcium 6.7 alk phos 382 Patient remains on cefepime. Procalcitonin level is pending. 01/26/2024 Patient is resting in the bed. Awake alert and oriented. Currently on 2 L via nasal cannula. No cough or sputum production. Denies any chest pain or s hortness of breath. Patient remains on antibiotics and home surgery team. Procalcitonin pending. Patient has been afebrile. Laboratory data showed WBC 18.4 hemoglobin 8.3 and platelets 660. Anticipate discharge back to ECF in the next 24 hours. Current medications reviewed. Objective - Vital Signs Vital signs: Vital Signs Temp 98.3 F 01/26/24 19:08 Pulse 114 H 01/26/24 19:08 Resp 18 01/26/24 19:08 BP 149/74 01/26/24 19:08 Pulse Ox 96 01/26/24 19:08 FiO2 Intake & Output 01/26/24 01/26/24 01/27/24 06:59 18:59 06:59 Intake Total 360 Output Total 1600 1600 Balance -1240 -1600 Intake: Oral 360 Output: Urine 1600 1600 Other: Voiding Method Indwelling Catheter Indwelling Catheter # Bowel Movements 1 1 - Exam PHYSICAL EXAMINATION: Patient is lying in the bed, no acute distress, awake alert and oriented. M orbidly obese. HEENT: Normocephalic. Neck is supple. Pupils reactive. Nostrils clear. Oral cavity is moist. Neck reveals no JVD, carotid bruits, or thyromegaly. CHEST EXAMINATION: Trachea is central. Symmetrical expansion. Bibasilar diminished sounds. No wheezing. CARDIAC: Normal S1, S2 with no gallops. No murmurs ABDOMEN: Soft. Bowel sounds normal. No organomegaly. No abdominal bruits. Extremities: reveal no edema. No clubbing or cyanosis Neurologically awake, alert, oriented x 2-3 able to move her extremities while in bed. No gross focal deficits noted Skin: No rash or skin lesions. Psychiatric: Coperative. Nonsuicidal. Could not be assessed completely Musculoskeletal: No joint swelling or deformity. - Labs CBC & Chem 7: 01/28/24 08:05 01/28/24 08:05 Labs: Abnormal Lab Results - Last 24 Hours (Table) 01/26/24 01/26/24 01/26/24 Range/Units 00:35 12:16 15:43 WBC 18.4 H (3.8-10.6) k/uL RBC 3.19 L (3.80-5.40) m/uL Hgb 8.3 L (11.4-16.0) gm/dL Hct 29.5 L (34.0-46.0) % MCHC 28.1 L (31.0-37.0) g/dL RDW 17.5 H (11.5-15.5) % Plt Count 660 H (150-450) k/uL POC Glucose (mg/dL) 162 H 195 H (70-110) mg/dL 01/26/24 01/26/24 Range/Units 17:06 20:11 WBC (3.8-10.6) k/uL RBC (3.80-5.40) m/uL Hgb (11.4-16.0) gm/dL Hct (34.0-46.0) % MCHC (31.0-37.0) g/dL RDW (11.5-15.5) % Plt Count (150-450) k/uL POC Glucose (mg/dL) 207 H 268 H (70-110) mg/dL Microbiology - Last 24 Hours (Table) 01/23/24 19:50 Blood Culture - Preliminary Blood 01/23/24 19:35 Blood Culture - Preliminary Blood Assessment and Plan Assessment: Metastatic renal cell carcinoma with mets to lung and bone. Currently not on immunotherapy Normocytic normochromic anemia, neutrophilic leukocytosis and thrombocytosis likely due to metastatic malignancy. Hypovolemic hyponatremia Hyperglycemia Hypertension Morbid obesity with BMI 39.40 Prior history of smoking DVT prophylaxis with Lovenox subcu Plan: Patient will be continued on gentle IV hydration. Encourage oral intake. Transfuse PRBC to keep hemoglobin greater than 7. Continue with insulin regimen and sliding scale and metformin. Patient will be continued on antibiotics cefepime for possible pneumonia. Procalcitonin level report pending. Follow-up sodium level and monitor H&H. Repeat anemia workup was ordered. Oncology is on board. Current CODE STATUS is DNR/DNI. Patient states that she is not willing to sign up for hospice and would like to be transferred back to [facility]. Prognosis is poor at this time. Time with Patient: Greater than 30
[2024-01-27 07:03] LABS: Glucose,Whole Blood 166 mg/dL (70-110)
[2024-01-27] MEDS: ACETAMINOPHEN TAB 325 MG TAB PO PRN (08:16)
--- NOTE | 2024-01-27 08:41 | XR ---
EXAMINATION TYPE: XR chest 1V DATE OF EXAM: 01/27/2024 7:29 AM CLINICAL INDICATION:Female, 58 years old with history of Pneumonia; H COMPARISON: Chest radiographs from 01/23/2024 TECHNIQUE: XR chest 1V Frontal view of the chest. FINDINGS: Lungs/Pleura: Soft tissue masses are seen throughout the lungs. No evidence for pneumothorax or pleur al effusion. Pulmonary vascularity: Unremarkable. Heart/mediastinum: Cardiomediastinal silhouette is unremarkable. Musculoskeletal: No acute osseous pathology. Other findings: None IMPRESSION: Metastatic disease throughout the lungs this limits evaluation for airspace disease.
--- NOTE | 2024-01-27 09:30 | CDI ---
Documentation Clarification Form Date: 01/27/2024 08:31:00 AM From: Tiara Alvarado RN CCDS Phone: [phone] Admit Date: 01/23/2024 09:18:00 PM Patient Name: Candi Stafford Visit Number: [id number] Discharge Date: ATTENTION: The Clinical Documentation Specialists (CDI) and [facility] Coding Staff appreciate your assistance in clarifying documentation. Please respond to the clarification below the line at the bottom and electronically sign. The CDI & [facility] Coding staff will review the response and follow-up if needed. Please note: Queries are made part of the Legal Health Record. If you have any questions, please contact the author of this message via ITS. Dr. Phoebe Berger Conflicting documentation has been found in the medical record. As the attending physician, please provide clarification. Sacral pressure ulcer stage IV, Nursing pressure injury assessment 01/23 Sacral pressure ulcer unstageable, Nursing pressure injury assessment 01/24 Sacral pressure ulcer stage III, ID consult, 01/26. History/Risk Factors: 58-year-old female presents to the ED from [facility] for low hemoglobin. Medical History: Renal cancer with mets to the lungs and bones, DM, HTN and functional quadriplegia. 01/23, H&P. Clinical Indicators: Nursing assessment Location: Sacral Wound description: Length 10cm, Width 10cm, Depth 2.5cm, Tunneling distance 2cm, Tunneling Start /End 12, Wound margins Thickened and rolled under. Drainage description Purulent, moderate amount, foul order. Wound is partially including the anus from 9 oclock to 2 oclock. Clinical Indicator: ID consult 01/26 Stage III sacral pressure ulcer which has been there chronic for this patient wound base did have some slough tissue but no surrounding redness current hospital drainage. Treatment: Turn Q 2 hours while in bed, Elevating arms and heels with pillows. Dressing: Gel fiber with silver (Opticel Ag), Medihoney followed by moist dressing. Please clarify the stage of pressure ulcer, if known: [ x ] Stage III Sacral Pressure Ulcer [ ] Stage IV Sacral Pressure Ulcer [ ] Unstageable Sacral Pressure Ulcer [ ] Other condition, please specify [ ] Unable to determine Clinical Definitions: Stage 1 Pressure Ulcer: intact skin, non-blanching redness of local area Stage 2 Pressure Ulcer: Partial thickness, loss of dermis, pink wound bed Stage 3 Pressure Ulcer: Full thickness tissue loss Stage 4 Pressure Ulcer: Full thickness tissue loss with exposed bone, tendon, or muscle. Unstageable pressure ulcer: Full thickness tissue loss in which the base of the ulcer is covered by slough (yellow, hall, crawford, green or brown) and/or eschar (hall, brown or black) in the wound bed. (Template Last Revised: November 2020) MTDD
[2024-01-27 11:59] LABS: Glucose,Whole Blood 147 mg/dL (70-110)
[2024-01-27 15:38] LABS: Basophils # (A) 0.02 X 10*3/uL (0.00-0.10); Basophils % (A) 0.1 %; Eosinophils # (A) 0.02 X 10*3/uL (0.04-0.35); Eosinophils % (A) 0.1 %; HCT 26.2 % (37.2-46.3); HGB 8.1 g/dL (12.0-15.0); Lymphocytes % (A) 5.3 %; MCH 27.6 pg (27.0-32.0); MCHC 30.9 g/dL (32.0-37.0); MCV 89.1 FL (80.0-97.0); Mean Platelet Volume 9.6 FL (9.5-12.2); Monocytes # (A) 0.88 X 10*3/uL (0.20-1.00); Monocytes % (A) 4.7 %; NRBC Per 100 WBC 0 X 10*3/uL (0.00-0.01); Neutrophils # (A) 16.51 X 10*3/uL (1.80-7.70); Neutrophils % (A) 88.2 %; Platelet Count 595 X 10*3/uL (140-440); RBC 2.94 X 10*6/uL (4.10-5.20); RDW 18.5 % (11.5-14.5); WBC 18.73 X 10*3/uL (4.50-10.00)
[2024-01-27 16:04] LABS: BUN/Creat Ratio 48.67 Ratio (12.00-20.00); Blood Urea Nitrogen 29.2 mg/dL (9.0-27.0); Calcium 8.8 mg/dL (8.7-10.3); Carbon Dioxide 27.1 mmol/L (21.6-31.8); Chloride 92 mmol/L (96-109); Glucose 141 mg/dL (70-110); Potassium 3.8 mmol/L (3.5-5.5); Sodium 132 mmol/L (135-145)
[2024-01-27 17:00] LABS: Glucose,Whole Blood 64 mg/dL (70-110)
[2024-01-27] MEDS: DEXTROSE 50% SYRINGE 50 ML IVP PRN (17:04)
[2024-01-27 17:17] LABS: Glucose,Whole Blood 116 mg/dL (70-110)
[2024-01-27 18:46] LABS: African American GFR (CKD) >90 (>60 ml/min/1.73 sqM); Anion Gap 4 mmol/L; Blood Urea Nitrogen 28 mg/dL (7-17); Calcium 8.9 mg/dL (8.4-10.2); Carbon Dioxide 32 mmol/L (22-30); Chloride 96 mmol/L (98-107); Glucose 75 mg/dL (74-99); Non-African American GFR(CKD) >90 (>60 ml/min/1.73 sqM); Potassium 3.1 mmol/L (3.5-5.1); Sodium 132 mmol/L (137-145)
[2024-01-27] MEDS ORDERED: Potassium Replacement Protocol 1 EACH MISC MISCELLANE PRN ×2 (18:50→21:49)
--- NOTE | 2024-01-27 18:55 | CT ---
EXAMINATION TYPE: CT brain wo con CT DLP: 1064.3 mGycm, Automated exposure control for dose reduction was used. DATE OF EXAM: 01/27/2024 6:48 PM COMPARISON: None. CLINICAL INDICATION:Female, 58 years old with history of altered mental status, Increased AMS through out the day TECHNIQUE: Brain: Axial CT images of the brain were obtained with coronal and sagittal reformats created and rev iewed. Contrast used: None. Oral contrast used: None. FINDINGS: Brain: Extra-axial spaces: No abnormal extra-axial fluid collections. Ventricular system: Within normal limits Cerebral parenchyma: Vasogenic edema in the left parietal region with preserved crawford-white matter dif ferentiation. Possible underlying mass series 10 image 37 measuring 6-7 mm No acute intraparenchymal hemorrhage or mass effect. The crawford-white junction is well differentiated. Cerebellum: Unremarkable. Mass effect: No evidence of midline shift. Intracranial vasculature: unremarkable Soft tissues: Normal. Calvarium/osseous structures: No depressed skull fracture. Paranasal sinuses and mastoid air cells: Mild scattered paranasal sinus disease. Visualized orbits: Orbital contents are intact. IMPRESSION: Vasogenic edema in the left parietal region of unknown etiology further evaluation MRI with IV contra st recommended to exclude underlying mass. Given history of malignancy findings suspicious for metast atic disease..
[2024-01-27 18:56] LABS: Anisocytosis Slight; Hypochromasia Marked; MCH 26.3 pg (25.0-35.0); MCHC 28.7 g/dL (31.0-37.0); MCV 91.7 fL (80.0-100.0); Mean Platelet Volume 7.7; Platelet Count 612 k/uL (150-450); Poikilocytosis Slight; RBC 3.05 m/uL (3.80-5.40); RDW 17.3 % (11.5-15.5); WBC 16.6 k/uL (3.8-10.6)
[2024-01-27] MEDS ORDERED: POTASSIUM CHLORIDE ER 20 MEQ TAB.ER PO SCH (20:00)
[2024-01-27] MEDS ORDERED: HYDROcodone/APAP 7.5-325MG 1 EACH TAB PO PRN (20:02)
[2024-01-27 20:30] LABS: Glucose,Whole Blood 81 mg/dL (70-110)
--- NOTE | 2024-01-27 20:41 | XR ---
EXAMINATION TYPE: XR chest 1V DATE OF EXAM: 01/27/2024 8:17 PM CLINICAL INDICATION:Female, 58 years old with history of fever, AMS; PHH COMPARISON: Chest radiographs from 01/27/2024 TECHNIQUE: XR chest 1V Frontal view of the chest. FINDINGS: Lungs/Pleura: Soft tissue masses are seen throughout the lungs. No evidence for pneumothorax or pleur al effusion. Pulmonary vascularity: Unremarkable. Heart/mediastinum: Cardiomediastinal silhouette is unremarkable. Musculoskeletal: No acute osseous pathology. Other findings: None IMPRESSION: Metastatic disease throughout the lungs this limits evaluation for airspace disease.
[2024-01-27 20:50] LABS: ABG Base Excess 8.9 mmol/L; ABG HCO3 33 mmol/L (21-25); ABG Oxygen Saturation 94.9 % (94-97); ABG PCO2 46 mmHg (35-45); ABG PH 7.47 (7.35-7.45); ABG PO2 69 mmHg (83-108); Allen Test Performed? Yes
[2024-01-27] MEDS: DEXAMETHASONE SOD PHOSPHATE 4 MG/ML 1 ML VIAL IVP SCH (21:05)
[2024-01-27 21:57] LABS: Glucose,Whole Blood 78 mg/dL (70-110)
--- NOTE | 2024-01-27 22:00 | MR ---
EXAMINATION TYPE: MR brain wo/w con DATE OF EXAM: 01/27/2024 9:40 PM CLINICAL INDICATION:Female, 58 years old with history of AMS; PHH, ams, cancer COMPARISON: 08/26/2015 TECHNIQUE: Multi planar, multi sequence imaging was performed through the brain including: T1, T2, In version recovery, susceptibility weighted imaging and gradient echo imaging and Diffusion weighted im aging. The patient was then given intravenous contrast and multi planar, T1 fat-saturation images wer e obtained. IV Contrast: 11 cc Gadavist FINDINGS: Enhancing focus within the vasogenic edema seen on prior CT measuring 5 mm series 801 image 27 involving the left parietal lobe. Another area within left occipital lobe measuring 6 mm series 1 image 17 is present and in the right occipital lobe series 01 image 19 measuring 4 mm Scattered foci of restricted diffusion are seen throughout the brain including the right parietal/lef t frontal, right occipital, right temporal lobes. The crawford-white junctions, ventricular system, basal cisterns appear unremarkable. Intracranial arteri al flow voids are maintained. Midline structures show no abnormality. Scattered foci of high T2 signa l intensity are seen within the periventricular white matter. The susceptibility weighted images do n ot reveal any evidence for micro-hemorrhage. The bone marrow signal is within normal limits. Paranasal sinuses and mastoid air cells: No significant paranasal sinus disease. Visualized orbits: Orbital contents are intact. IMPRESSION: 1. Acute/subacute CVA with scattered foci of restricted effusion correlate for embolic phenomenon. 2. At least 3 enhancing foci most compatible with metastatic disease. 3. Nonspecific white matter changes, likely related to small vessel ischemic disease.
--- NOTE | 2024-01-27 22:16 | P.CONS ---
History of Present Illness - Reason for Consult Consult date: 01/27/24 Wound care Requesting physician: Phoebe Berger - Chief Complaint Weakness and low hemoglobin x few days - History of Present Illness Patient is a 58-year-old female with multiple comorbidities including diabetes mellitus hypertension CVA TIA, renal cancer, former smoker resident of [facility] patient has been brought into the hospital 4 days ago however the patient was noticed to have a low hemoglobin patient complaining of weakness no fever no chills the patient did not have any high-grade fever during this admission except low-grade fever of 99.7 on the as well as this morning, patient on admission to the hospital did have white count of 18.1 which is currently 16.6 did have a normal creatinine liver enzymes AST mildly elevated ALT normal urine was mildly positive influenza RSV COVID testing was negative blood culture has been negative patient did have a chest x-ray multiple masses seen scattered throughout the lungs new from the previous did have a CT of the chest progression of metastatic disease increased size and number and cholelithiasis patient also have a chronic nonhealing wound to the sacral area which was present on admission infectious disease was consulted today regarding local treatment of the sacral pressure ulcer, patient has this ulcer for couple of weeks denies any worsening pain and no worsening drainage has been reported by the nursing staff Review of Systems Positive point and negatives has been mentioned in the HPI, complete review of systems was performed and all other systems are negative Past Medical History Past Medical History: Cancer, CVA/TIA, Diabetes Mellitus, Hypertension History of Any Multi-Drug Resistant Organisms: None Reported Past Surgical History: Orthopedic Surgery Additional Past Surgical History / Comment(s): bone spur right heel surgery, right meniscus surgery Past Anesthesia/Blood Transfusion Reactions: No Reported Reaction Past Psychological History: No Psychological Hx Reported Smoking Status: Former smoker Past Alcohol Use History: None Reported Past Drug Use History: None Reported - Past Family History Sister(s) Family Medical History: Diabetes Mellitus Additional Family Medical History / Comment(s): Both sisters have Type II diabetetes Mother Family Medical History: Hypertension Additional Family Medical History / Comment(s): Currently in remission from breast cancer Father Additional Family Medical History / Comment(s): no history reported, in car accident Medications and Allergies Allergies Allergy/AdvReac Type Severity Reaction Status Date / Time ibuprofen Allergy Rash/Hives Verified 02/11/22 14:47 Physical Exam Vitals: Vital Signs Temp Pulse Resp BP BP Pulse Ox 01/27/24 07:04 99.7 F H 100 24 134/72 92 L 01/27/24 02:00 98.6 F 101 H 16 125/71 97 01/26/24 19:08 98.3 F 114 H 18 149/74 96 01/26/24 17:56 98.3 F 115 H 20 149/64 97 01/26/24 12:15 98.1 F 101 H 18 148/81 93 L Intake and Output 01/26/24 01/27/24 01/27/24 22:59 06:59 14:59 Output Total 600 2000 Balance -600 -2000 Output: Urine 600 2000 Other: Voiding Method Indwelling Catheter GENERAL DESCRIPTION: Middle-aged female lying in bed, no distress. No tachypnea or accessory muscle of respiration use. HEENT: Shows Pallor , no scleral icterus. Oral mucous membrane is dry. No pharyngeal erythema or thrush NECK: Trachea central, no thyromegaly. LUNGS: Unlabored breathing. Clear to auscultation anteriorly. No wheeze or crackle. HEART: S1, S2, regular rate and rhythm. No loud murmur ABDOMEN: Soft, no tenderness , guarding or rigidity, no organomegaly EXTREMITIES: Diffuse swelling no redness SKIN: Patient did have a stage III sacral pressure ulcer with some slough tissue no surrounding redness or foul-smelling drainage NEUROLOGICAL: The patient is awake, alert, mood and affect normal. Results CBC & Chem 7: 01/28/24 08:05 01/28/24 08:05 Labs: Abnormal Lab Results - Last 24 Hours (Table) 01/26/24 01/26/24 01/26/24 Range/Units 12:16 15:43 17:06 WBC 18.4 H (3.8-10.6) k/uL RBC 3.19 L (3.80-5.40) m/uL Hgb 8.3 L (11.4-16.0) gm/dL Hct 29.5 L (34.0-46.0) % MCHC 28.1 L (31.0-37.0) g/dL RDW 17.5 H (11.5-15.5) % Plt Count 660 H (150-450) k/uL POC Glucose (mg/dL) 195 H 207 H (70-110) mg/dL 01/26/24 01/27/24 Range/Units 20:11 07:01 WBC (3.8-10.6) k/uL RBC (3.80-5.40) m/uL Hgb (11.4-16.0) gm/dL Hct (34.0-46.0) % MCHC (31.0-37.0) g/dL RDW (11.5-15.5) % Plt Count (150-450) k/uL POC Glucose (mg/dL) 268 H 166 H (70-110) mg/dL Microbiology - Last 24 Hours (Table) 01/23/24 19:50 Blood Culture - Preliminary Blood 01/23/24 19:35 Blood Culture - Preliminary Blood Assessment and Plan (1) Leukocytosis Status: Acute Code(s): D72.829 - ELEVATED WHITE BLOOD CELL COUNT, UNSPECIFIED SNOMED Code(s): 928432452 (2) Stage III pressure ulcer of sacral region Status: Acute Code(s): L89.153 - PRESSURE ULCER OF SACRAL REGION, STAGE 3 SNOMED Code(s): 53976238152252 Plan: 1patient with a stage III sacral pressure ulcer which has been there chronic for this patient wound base did have some slough tissue but no surrounding redness current hospital drainage clinically behaving as infected sacral pressure ulcer 2-patient did have elevated white count questionably due to her metastatic renal cancer as the patient not running any fever develop toxic 3-local wound care to the sacral wound with the Medihoney followed by moist dressing and frequent change of the position 4-we will check inflammatory markers We will follow on clinical condition and cultures to further adjust medication if needed Thank you for this consultation we will follow the patient along with you Dictation was produced using [employer] dictation software. please excuse any grammatical, word or spelling errors. Time with Patient: Greater than 30
[2024-01-27] MEDS: POTASSIUM CHLORIDE 10 MEQ in WATER FOR INJECTION 1 100ML.BAG IVPB SCH (23:33)
[2024-01-27] MEDS: SODIUM CHLORIDE 0.9% 1,000 ML IV SCH (23:35)
[2024-01-27 23:38] LABS: Glucose,Whole Blood 81 mg/dL (70-110)
[2024-01-28 00:56] LABS: Glucose,Whole Blood 84 mg/dL (70-110)
[2024-01-28] MEDS ORDERED: ACETAMINOPHEN SUPPOSITORY 650 MG SUPP RECTAL PRN (01:55)
[2024-01-28] MEDS ORDERED: HYDROmorphone 1 MG/ML 1 ML SYRINGE IVP PRN (02:00)
[2024-01-28] MEDS ORDERED: LORazepam 1 MG/0.5 ML VIAL IV PRN (02:30)
[2024-01-28] MEDS ORDERED: SCOPOLAMINE 1 MG/72 HR PATCH TRANSDERM SCH (02:30)
[2024-01-28 02:57] VITALS: BP 146/70; TEMP 97.5
[2024-01-28] MEDS: MORPHINE SULFATE (100 MG/2 ML) 100 MG in SODIUM CHLORIDE 0.9% 100 ML IV SCH (03:22)
[2024-01-28] MEDS: DRY MOUTH SPRAY 44.3 SPRAY/44.3 ML SPRAY MUCOUS MEM PRN (03:39)
[2024-01-28 06:58] LABS: Glucose,Whole Blood 99 mg/dL (70-110)
[2024-01-28 07:52] VITALS: PULSE 84
[2024-01-28] MEDS: ENOXAPARIN 40 MG/0.4 ML SYRINGE SQ SCH (09:18)
--- NOTE | 2024-01-28 12:02 | P.PN ---
Subjective Progress Note Date: 01/28/24 Principal diagnosis: General medical debility. Metastatic RCC, no recent treatment Pt seen today with family at bedside. MRI of the brain performed for confusion, unfortunately metastatic lesions were found. Pt is laying in bed, appears to be comfortable, she did answer some questions with yes/no answers, she smiles at times. Objective - Vital Signs Vital signs: Vital Signs Temp 97.5 F L 01/28/24 02:03 Pulse 84 01/28/24 06:55 Resp 16 01/28/24 06:55 BP 146/70 01/28/24 06:55 Pulse Ox 97 01/28/24 06:55 FiO2 Intake & Output 01/27/24 01/28/24 01/28/24 18:59 06:59 18:59 Output Total 2150 800 400 Balance -2150 -800 -400 Output: Urine 2150 800 400 Other: Voiding Method Indwelling Catheter Indwelling Catheter - Constitutional General appearance: Present: morbidly obese - EENT Eyes: Present: anicteric sclerae - Respiratory Details: shallow resp - Integumentary Integumentary: Present: pale - Musculoskeletal Musculoskeletal: Present: generalized weakness - Psychiatric Psychiatric: Absent: A&O x's 3, appropriate affect, intact judgment & insight - Labs CBC & Chem 7: 01/27/24 18:05 01/27/24 18:05 Labs: Abnormal Lab Results - Last 24 Hours (Table) 01/24/24 01/27/24 01/27/24 Range/Units 06:37 07:25 07:25 WBC 18.73 H (4.50-10.00) X 10*3/uL RBC 2.94 L (4.10-5.20) X 10*6/uL Hgb 8.1 L (12.0-15.0) g/dL Hct 26.2 L (37.2-46.3) % MCHC 30.9 L (32.0-37.0) g/dL RDW 18.5 H (11.5-14.5) % Plt Count 595 H (140-440) X 10*3/uL Immature Gran # 0.30 H (0.00-0.04) X 10*3/uL Neutrophils # 16.51 H (1.80-7.70) X 10*3/uL Eosinophils # 0.02 L (0.04-0.35) X 10*3/uL ABG pH (7.35-7.45) ABG pCO2 (35-45) mmHg ABG pO2 (83-108) mmHg ABG HCO3 (21-25) mmol/L Sodium 132 L (135-145) mmol/L Potassium (3.5-5.1) mmol/L Chloride 92 L (96-109) mmol/L Carbon Dioxide (22-30) mmol/L Anion Gap 12.90 H (4.00-12.00) mmol/L BUN 29.2 H (9.0-27.0) mg/dL BUN/Creatinine Ratio 48.67 H (12.00-20.00) Ratio Glucose 141 H (70-110) mg/dL POC Glucose (mg/dL) (70-110) mg/dL Procalcitonin 0.64 H (0.02-0.09) ng/mL 01/27/24 01/27/24 01/27/24 Range/Units 11:58 16:59 17:16 WBC (4.50-10.00) X 10*3/uL RBC (4.10-5.20) X 10*6/uL Hgb (12.0-15.0) g/dL Hct (37.2-46.3) % MCHC (32.0-37.0) g/dL RDW (11.5-14.5) % Plt Count (140-440) X 10*3/uL Immature Gran # (0.00-0.04) X 10*3/uL Neutrophils # (1.80-7.70) X 10*3/uL Eosinophils # (0.04-0.35) X 10*3/uL ABG pH (7.35-7.45) ABG pCO2 (35-45) mmHg ABG pO2 (83-108) mmHg ABG HCO3 (21-25) mmol/L Sodium (135-145) mmol/L Potassium (3.5-5.1) mmol/L Chloride (96-109) mmol/L Carbon Dioxide (22-30) mmol/L Anion Gap (4.00-12.00) mmol/L BUN (9.0-27.0) mg/dL BUN/Creatinine Ratio (12.00-20.00) Ratio Glucose (70-110) mg/dL POC Glucose (mg/dL) 147 H 64 L 116 H (70-110) mg/dL Procalcitonin (0.02-0.09) ng/mL 01/27/24 01/27/24 01/27/24 Range/Units 18:05 18:05 20:38 WBC 16.6 H (4.50-10.00) X 10*3/uL RBC 3.05 L (4.10-5.20) X 10*6/uL Hgb 8.0 L (12.0-15.0) g/dL Hct 28.0 L (37.2-46.3) % MCHC 28.7 L (32.0-37.0) g/dL RDW 17.3 H (11.5-14.5) % Plt Count 612 H (140-440) X 10*3/uL Immature Gran # (0.00-0.04) X 10*3/uL Neutrophils # (1.80-7.70) X 10*3/uL Eosinophils # (0.04-0.35) X 10*3/uL ABG pH 7.47 H (7.35-7.45) ABG pCO2 46 H (35-45) mmHg ABG pO2 69 L (83-108) mmHg ABG HCO3 33 H (21-25) mmol/L Sodium 132 L (135-145) mmol/L Potassium 3.1 L (3.5-5.1) mmol/L Chloride 96 L (96-109) mmol/L Carbon Dioxide 32 H (22-30) mmol/L Anion Gap (4.00-12.00) mmol/L BUN 28 H (9.0-27.0) mg/dL BUN/Creatinine Ratio (12.00-20.00) Ratio Glucose (70-110) mg/dL POC Glucose (mg/dL) (70-110) mg/dL Procalcitonin (0.02-0.09) ng/mL - Imaging and Cardiology Chest x-ray: report reviewed CT Scan - head: report reviewed MRI - head: report reviewed Assessment and Plan (1) Metastatic renal cell carcinoma to lung Current Visit: Yes Status: Chronic Priority: High Code(s): C78.00 - SECONDARY MALIGNANT NEOPLASM OF UNSPECIFIED LUNG; C64.9 - MALIGNANT NEOPLASM OF UNSP KIDNEY, EXCEPT RENAL PELVIS SNOMED Code(s): 70700094 Plan: Metastatic renal cell carcinoma -Received 4 cycles of Opdivo and Yervoy resulting in stable disease and continued with maintenance Opdivo -CT scans in September 2023 noted disease progression with recommendation to start VEGF inhibitor axitinib -She has had multiple hospitalizations over the past 2 to 3 months from complications of her other medical comorbidities with axitinib being on hold. Particularly due to large sacral decubitus ulcer, where this medication would not allow proper healing -CT of the chest on admission noted disease progression of lung nodules noted in September 2023 -Given her multiple hospitalizations and lack of clinical improvement, I am concerned about her ability to receive treatment going forward Summarized pt hospital course to date with family. Discussed multiple hospitalizations over the last 5 months and multiple medical problems. Reviewed results of CT head and MRI of the head. 3 lesions seen in the brain. Steroid was given for symptoms. It was discussed that pt health in general has declined in the last few months due to multiple medical conditions, not just malignancy. It is reasonable for the pt to pursue comfort and palliation of symptoms and spend time with her family vs aggressive measures to try and treat multiple comorbidities, which unfortunately has not been successful over the last 5 months. All questions were answered to family satisfaction. They have met with hospice. Attests: I have seen and examined pt, performed H&P, developed impression and plan of care. Discussed with dictator. Agree with documentation, dictated as a scribe
[2024-01-28 13:13] LABS: Methylmalonic Acid 0.84 umol/L (<0.40)
[2024-01-28 15:06] LABS: Basophils # (A) 0.02 X 10*3/uL (0.00-0.10); Basophils % (A) 0.1 %; Eosinophils # (A) 0.01 X 10*3/uL (0.04-0.35); Eosinophils % (A) 0.1 %; HCT 28.1 % (37.2-46.3); HGB 8.4 g/dL (12.0-15.0); Lymphocytes # (A) 0.71 X 10*3/uL (0.90-5.00); Lymphocytes % (A) 4.2 %; MCH 26.8 pg (27.0-32.0); MCHC 29.9 g/dL (32.0-37.0); MCV 89.5 FL (80.0-97.0); Mean Platelet Volume 10.2 FL (9.5-12.2); Monocytes # (A) 0.76 X 10*3/uL (0.20-1.00); Monocytes % (A) 4.5 %; NRBC Per 100 WBC 0.02 X 10*3/uL (0.00-0.01); Neutrophils # (A) 15.27 X 10*3/uL (1.80-7.70); Neutrophils % (A) 89.6 %; Platelet Count 553 X 10*3/uL (140-440); RBC 3.14 X 10*6/uL (4.10-5.20); RBC Morphology Normal (Normal); RDW 18.8 % (11.5-14.5); WBC 17.03 X 10*3/uL (4.50-10.00)
[2024-01-28 15:27] LABS: Magnesium 2.3 mg/dL (1.5-2.4)
[2024-01-28 15:28] LABS: ALT 26 U/L (8-44); AST 54 U/L (13-35); Albumin 2.1 g/dL (3.8-4.9); Albumin/Globulin Ratio 0.62 Ratio (1.60-3.17); Alkaline Phosphatase 408 U/L (41-126); Blood Urea Nitrogen 27.9 mg/dL (9.0-27.0); Calcium 9.7 mg/dL (8.7-10.3); Carbon Dioxide 26.9 mmol/L (21.6-31.8); Chloride 98 mmol/L (96-109); Globulin 3.4 g/dL (1.6-3.3); Glucose 91 mg/dL (70-110); Potassium 4.2 mmol/L (3.5-5.5); Sodium 138 mmol/L (135-145); Total Bilirubin 0.6 mg/dL (0.3-1.2); Total Protein 5.5 g/dL (6.2-8.2)
--- NOTE | 2024-01-29 09:40 | P.PN ---
Subjective Progress Note Date: 01/27/24 Patient is a 58-year-old female with a known history of metastatic renal cell carcinoma with mets to the lungs and bones, currently not on any immunotherapy, history of CVA/TIA, morbid obesity, hypertension and a prior history of smoking was sent from [facility] due to uremia and generalized weakness. Patient was previously admitted to [facility], [place], operated by [facility], requiring PRBC transfusion. Patient was previously on follow-up with Dr. Singh. Denies any hematemesis or melena. No complaints of chest pain. Patient does have shortness of breath at baseline.. No cough or sputum production. Denies any dysuria or hematuria. Patient usually wears oxygen at home. Patient is mainly bedridden due to morbid obesity and functional quadriplegia. Chest x-ray showed multiple masses are seen scattered throughout the lungs. New from prior 02/13/2022. Findings concerning for metastatic disease. EKG showed sinus tachycardia CT chest showed progression of metastatic disease increases in size and number of pulmonary nodules. Cholelithiasis. Laboratory data showed WBC 18.1 hemoglobin 7.1 and dropped down to 6.4 platelets 1057 Sodium 125 potassium 5.0 chloride 88 bicarb is 30 BUN 31 and creatinine 0.51 and blood sugar 205 calcium 8.3 AST 71 ALT 32 alk phos 398 and albumin 2.3 Urinalysis showed moderate leukocyte esterase with WBC count 4 Influenza A B RSV and COVID-19 PCR not detected. 01/25/2024 Patient is lying in the bed. Awake alert and oriented. No complaints of chest pain or shortness. Currently requiring 2 L oxygen via nasal cannula. Pain is fairly controlled. No headache or dizziness or lightheadedness. Laboratory data showed WBC still elevated at 19.6 hemoglobin 6.8 and is being transfused with 1 unit of PRBC today, platelets 720 sodium 131 potassium 4.0 chloride 89 bicarb is 29.9 BUN 24.9 and creatinine 0.6 and blood sugar 133 and calcium 6.7 alk phos 382 Patient remains on cefepime. Procalcitonin level is pending. 01/26/2024 Patient is resting in the bed. Awake alert and oriented. Currently on 2 L via nasal cannula. No cough or sputum production. Denies any chest pain or s hortness of breath. Patient remains on antibiotics and home surgery team. Procalcitonin pending. Patient has been afebrile. Laboratory data showed WBC 18.4 hemoglobin 8.3 and platelets 660. Anticipate discharge back to [facility] in the next 24 hours. 01/27/2024 Patient is lying in the bed. Seems to be lethargic today. No complaints of chest pain or shortness of breath. Patient does have sacral stage III decub ulcers. Wound care was consulted. Patient has been febrile. No nausea or vomiting. Minimal oral intake. Otherwise continued on cefepime for possible pneumonia. ID was consulted for e valuation. Laboratory data WBC 16.6 hemoglobin 8.0 and platelets 612, sodium 132 potassium 3.1 chloride 96 bicarb is 32 BUN to 28 and creatinine 0.6 and calcium 8.9. Current medications reviewed. Objective - Vital Signs Vital signs: Vital Signs Temp 98.4 F 01/27/24 20:00 Pulse 91 01/27/24 20:00 Resp 16 01/27/24 20:00 BP 138/80 01/27/24 20:00 Pulse Ox 96 01/27/24 20:00 FiO2 Intake & Output 01/27/24 01/27/24 01/28/24 06:59 18:59 06:59 Output Total 1999 2150 350 Balance -1999 -0 -350 Output: Urine 1999 2149 350 Other: Voiding Method Indwelling Catheter Indwelling Catheter - Exam PHYSICAL EXAMINATION: Patient is lying in the bed, no acute distress, awake alert and oriented. Morbidly obese. Lethargic and drowsy HEENT: Normocephalic. Neck is supple. Pupils reactive. Nostrils clear. Oral cavity is moist. Neck reveals no JVD, carotid bruits, or thyromegaly. CHEST EXAMINATION: Trachea is central. Symmetrical expansion. Bibasilar diminished sounds. No wheezing. CARDIAC: Normal S1, S2 with no gallops. No murmurs ABDOMEN: Soft. Bowel sounds normal. No organomegaly. No abdominal bruits. Extremities: reveal no edema. No clubbing or cyanosis Neurologically awake, alert, oriented x 2-3 able to move her extremities while in bed. No gross focal deficits noted Skin: No rash or skin lesions. Sacral decub ulcer stage III Psychiatric: Coperative. Nonsuicidal. Could not be assessed completely Musculoskeletal: No joint swelling or deformity. - Labs CBC & Chem 7: 01/28/24 08:01/28/24 08:05 Labs: Abnormal Lab Results - Last 24 Hours (Table) 01/24/24 01/27/24 01/27/24 Range/Units 06:37 07:01 07:25 WBC 18.73 H (4.50-10.00) X 10*3/uL RBC 2.94 L (4.10-5.20) X 10*6/uL Hgb 8.1 L (12.0-15.0) g/dL Hct 26.2 L (37.2-46.3) % MCHC 30.9 L (32.0-37.0) g/dL RDW 18.5 H (11.5-14.5) % Plt Count 595 H (140-440) X 10*3/uL Immature Gran # 0.30 H (0.00-0.04) X 10*3/uL Neutrophils # 16.51 H (1.80-7.70) X 10*3/uL Eosinophils # 0.02 L (0.04-0.35) X 10*3/uL ABG pH (7.35-7.45) ABG pCO2 (35-45) mmHg ABG pO2 (83-108) mmHg ABG HCO3 (21-25) mmol/L Sodium (135-145) mmol/L Potassium (3.5-5.1) mmol/L Chloride (96-109) mmol/L Carbon Dioxide (22-30) mmol/L Anion Gap (4.00-12.00) mmol/L BUN (9.0-27.0) mg/dL BUN/Creatinine Ratio (12.00-20.00) Ratio Glucose (70-110) mg/dL POC Glucose (mg/dL) 166 H (70-110) mg/dL Procalcitonin 0.64 H (0.02-0.09) ng/mL 01/27/24 01/27/24 01/27/24 Range/Units 07:25 11:58 16:59 WBC (4.50-10.00) X 10*3/uL RBC (4.10-5.20) X 10*6/uL Hgb (12.0-15.0) g/dL Hct (37.2-46.3) % MCHC (32.0-37.0) g/dL RDW (11.5-14.5) % Plt Count (140-440) X 10*3/uL Immature Gran # (0.00-0.04) X 10*3/uL Neutrophils # (1.80-7.70) X 10*3/uL Eosinophils # (0.04-0.35) X 10*3/uL ABG pH (7.35-7.45) ABG pCO2 (35-45) mmHg ABG pO2 (83-108) mmHg ABG HCO3 (21-25) mmol/L Sodium 132 L (135-145) mmol/L Potassium (3.5-5.1) mmol/L Chloride 92 L (96-109) mmol/L Carbon Dioxide (22-30) mmol/L Anion Gap 12.90 H (4.00-12.00) mmol/L BUN 29.2 H (9.0-27.0) mg/dL BUN/Creatinine Ratio 48.67 H (12.00-20.00) Ratio Glucose 141 H (70-110) mg/dL POC Glucose (mg/dL) 147 H 64 L (70-110) mg/dL Procalcitonin (0.02-0.09) ng/mL 01/27/24 01/27/24 01/27/24 Range/Units 17:16 18:05 18:05 WBC 16.6 H (4.50-10.00) X 10*3/uL RBC 3.05 L (4.10-5.20) X 10*6/uL Hgb 8.0 L (12.0-15.0) g/dL Hct 28.0 L (37.2-46.3) % MCHC 28.7 L (32.0-37.0) g/dL RDW 17.3 H (11.5-14.5) % Plt Count 612 H (140-440) X 10*3/uL Immature Gran # (0.00-0.04) X 10*3/uL Neutrophils # (1.80-7.70) X 10*3/uL Eosinophils # (0.04-0.35) X 10*3/uL ABG pH (7.35-7.45) ABG pCO2 (35-45) mmHg ABG pO2 (83-108) mmHg ABG HCO3 (21-25) mmol/L Sodium 132 L (135-145) mmol/L Potassium 3.1 L (3.5-5.1) mmol/L Chloride 96 L (96-109) mmol/L Carbon Dioxide 32 H (22-30) mmol/L Anion Gap (4.00-12.00) mmol/L BUN 28 H (9.0-27.0) mg/dL BUN/Creatinine Ratio (12.00-20.00) Ratio Glucose (70-110) mg/dL POC Glucose (mg/dL) 116 H (70-110) mg/dL Procalcitonin (0.02-0.09) ng/mL 01/27/24 Range/Units 20:38 WBC (4.50-10.00) X 10*3/uL RBC (4.10-5.20) X 10*6/uL Hgb (12.0-15.0) g/dL Hct (37.2-46.3) % MCHC (32.0-37.0) g/dL RDW (11.5-14.5) % Plt Count (140-440) X 10*3/uL Immature Gran # (0.00-0.04) X 10*3/uL Neutrophils # (1.80-7.70) X 10*3/uL Eosinophils # (0.04-0.35) X 10*3/uL ABG pH 7.47 H (7.35-7.45) ABG pCO2 46 H (35-45) mmHg ABG pO2 69 L (83-108) mmHg ABG HCO3 33 H (21-25) mmol/L Sodium (135-145) mmol/L Potassium (3.5-5.1) mmol/L Chloride (96-109) mmol/L Carbon Dioxide (22-30) mmol/L Anion Gap (4.00-12.00) mmol/L BUN (9.0-27.0) mg/dL BUN/Creatinine Ratio (12.00-20.00) Ratio Glucose (70-110) mg/dL POC Glucose (mg/dL) (70-110) mg/dL Procalcitonin (0.02-0.09) ng/mL Microbiology - Last 24 Hours (Table) 01/23/24 19:50 Blood Culture - Preliminary Blood 01/23/24 19:35 Blood Culture - Preliminary Blood Assessment and Plan Assessment: Acute metabolic encephalopathy Metastatic renal cell carcinoma with mets to lung with heparin subcu and bone. Currently not on immunotherapy Normocytic normochromic anemia, neutrophilic leukocytosis and thrombocytosis likely due to metastatic malignancy. Hypovolemic hyponatremia Hyperglycemia Hypertension Morbid obesity with BMI 39.40 Prior history of smoking Stage III sacral decub ulcers DVT prophylaxis with Lovenox subcu Plan: Patient will be continued on gentle IV hydration. Encourage oral intake. Transfuse PRBC to keep hemoglobin greater than 7. Continue with insulin regimen and sliding scale and metformin. Patient will be continued on antibiotics cefepime for possible pneumonia. Procalcitonin level report pending. Follow-up sodium level and monitor H&H. Repeat anemia workup was ordered. Oncology is on board. Current CODE STATUS is DNR/DNI. Patient states that she is not willing to sign up for hospice and would like to be transferred back to ECF. Prognosis is poor at this time. Time with Patient: Greater than 30
--- NOTE | 2024-01-29 09:44 | P.PN ---
Subjective Progress Note Date: 01/28/24 Patient is a 58-year-old female with a known history of metastatic renal cell carcinoma with mets to the lungs and bones, currently not on any immunotherapy, history of CVA/TIA, morbid obesity, hypertension and a prior history of smoking was sent from [facility] due to uremia and generalized weakness. Patient was previously admitted to [facility], requiring PRBC transfusion. Patient was previously on follow-up with Dr. Singh. Denies any hematemesis or melena. No complaints of chest pain. Patient does have shortness of breath at baseline.. No cough or sputum production. Denies any dysuria or hematuria. Patient usually wears oxygen at home. Patient is mainly bedridden due to morbid obesity and functional quadriplegia. Chest x-ray showed multiple masses are seen scattered throughout the lungs. New from prior 02/13/2022. Findings concerning for metastatic disease. EKG showed sinus tachycardia CT chest showed progression of metastatic disease increases in size and number of pulmonary nodules. Cholelithiasis. Laboratory data showed WBC 18.1 hemoglobin 7.1 and dropped down to 6.4 platelets 1057 Sodium 125 potassium 5.0 chloride 88 bicarb is 30 BUN 31 and creatinine 0.51 and blood sugar 205 calcium 8.3 AST 71 ALT 32 alk phos 398 and albumin 2.3 Urinalysis showed moderate leukocyte esterase with WBC count 4 Influenza A B RSV and COVID-19 PCR not detected. 01/25/2024 Patient is lying in the bed. Awake alert and oriented. No complaints of chest pain or shortness. Currently requiring 2 L oxygen via nasal cannula. Pain is fairly controlled. No headache or dizziness or lightheadedness. Laboratory data showed WBC still elevated at 19.6 hemoglobin 6.8 and is being transfused with 1 unit of PRBC today, platelets 720 sodium 131 potassium 4.0 chloride 89 bicarb is 29.9 BUN 24.9 and creatinine 0.6 and blood sugar 133 and calcium 6.7 alk phos 382 Patient remains on cefepime. Procalcitonin level is pending. 01/26/2024 Patient is resting in the bed. Awake alert and oriented. Currently on 2 L via nasal cannula. No cough or sputum production. Denies any chest pain or s hortness of breath. Patient remains on antibiotics and home surgery team. Procalcitonin pending. Patient has been afebrile. Laboratory data showed WBC 18.4 hemoglobin 8.3 and platelets 660. Anticipate discharge back to [facility] in the next 24 hours. 01/27/2024 Patient is lying in the bed. Seems to be lethargic today. No complaints of chest pain or shortness of breath. Patient does have sacral stage III decub ulcers. Wound care was consulted. Patient has been febrile. No nausea or vomiting. Minimal oral intake. Otherwise continued on cefepime for possible pneumonia. ID was consulted for e valuation. Laboratory data WBC 16.6 hemoglobin 8.0 and platelets 612, sodium 132 potassium 3.1 chloride 96 bicarb is 32 BUN to 28 and creatinine 0.6 and calcium 8.9. 01/28/2024 Patient is lethargic but able to open her eyes. Requiring oxygen at 2 L via nasal cannula. Afebrile. Overnight due to altered mental status ABGs was done showed pH 7.47 pCO2 46 and pO2 69. Patient had MRI of the brain showed vasogenic edema in the left peritoneal region of unknown etiology further evaluation MRI was recommended. Chest x-ray last night showed metastatic disease throughout the lungs and this limits evaluation for airspace disease. Laboratory data showed WBC 17.3 hemoglobin 8.4 and platelets 553 sodium 138 potassium 4.2 chloride 98 bicarb is 26.9 BUN 27.9 and creatinine 0.5 and blood sugar 91 CRP 25.1 and procalcitonin level 0.8. Patient remains on cefepime. ID and oncology is on board. Current medications reviewed. Objective - Vital Signs Vital signs: Vital Signs Temp 97.5 F L 01/28/24 02:03 Pulse 84 01/28/24 06:55 Resp 16 01/28/24 06:55 BP 146/70 01/28/24 06:55 Pulse Ox 97 01/28/24 06:55 FiO2 Intake & Output 01/28/24 01/28/24 01/29/24 06:59 18:59 06:59 Output Total 800 600 Balance -800 -600 Weight 104.326 kg Output: Urine 800 600 Other: Voiding Method Indwelling Catheter - Exam PHYSICAL EXAMINATION: Patient is lying in the bed, no acute distress, awake alert and oriented. Morbidly obese. Lethargic and drowsy HEENT: Normocephalic. Neck is supple. Pupils reactive. Nostrils clear. Oral ca vity is moist. Neck reveals no JVD, carotid bruits, or thyromegaly. CHEST EXAMINATION: Trachea is central. Symmetrical expansion. Bibasilar diminished sounds. No wheezing. CARDIAC: Normal S1, S2 with no gallops. No murmurs ABDOMEN: Soft. Bowel sounds normal. No organomegaly. No abdominal bruits. Extremities: reveal no edema. No clubbing or cyanosis Neurologically awake, alert, oriented x 2-3 able to move her extremities while in bed. No gross focal deficits noted Skin: No rash or skin lesions. Sacral decub ulcer stage III Psychiatric: Coperative. Nonsuicidal. Could not be assessed completely Musculoskeletal: No joint swelling or deformity. - Labs CBC & Chem 7: 01/28/24 08:05 01/28/24 08:05 Labs: Abnormal Lab Results - Last 24 Hours (Table) 01/24/24 01/28/24 01/28/24 Range/Units 12:44 08:05 08:05 WBC 17.03 H (4.50-10.00) X 10*3/uL RBC 3.14 L (4.10-5.20) X 10*6/uL Hgb 8.4 L (12.0-15.0) g/dL Hct 28.1 L (37.2-46.3) % MCH 26.8 L (27.0-32.0) pg MCHC 29.9 L (32.0-37.0) g/dL RDW 18.8 H (11.5-14.5) % Plt Count 553 H (140-440) X 10*3/uL Immature Gran # 0.26 H (0.00-0.04) X 10*3/uL Neutrophils # 15.27 H (1.80-7.70) X 10*3/uL Lymphocytes # 0.71 L (0.90-5.00) X 10*3/uL Eosinophils # 0.01 L (0.04-0.35) X 10*3/uL NRBC/100 WBC Diff 0.02 H (0.00-0.01) X 10*3/uL Anion Gap 13.10 H (4.00-12.00) mmol/L BUN 27.9 H (9.0-27.0) mg/dL Creatinine 0.5 L (0.6-1.5) mg/dL BUN/Creatinine Ratio 55.80 H (12.00-20.00) Ratio AST 54 H (13-35) U/L Alkaline Phosphatase 408 H (41-126) U/L C-Reactive Protein 25.10 H (0.00-0.80) mg/dL Total Protein 5.5 L (6.2-8.2) g/dL Albumin 2.1 L (3.8-4.9) g/dL Globulin 3.4 H (1.6-3.3) g/dL Albumin/Globulin Ratio 0.62 L (1.60-3.17) Ratio Methylmalonic Acid 0.84 H (<0.40) umol/L Procalcitonin (0.02-0.09) ng/mL 01/28/24 Range/Units 08:05 WBC (4.50-10.00) X 10*3/uL RBC (4.10-5.20) X 10*6/uL Hgb (12.0-15.0) g/dL Hct (37.2-46.3) % MCH (27.0-32.0) pg MCHC (32.0-37.0) g/dL RDW (11.5-14.5) % Plt Count (140-440) X 10*3/uL Immature Gran # (0.00-0.04) X 10*3/uL Neutrophils # (1.80-7.70) X 10*3/uL Lymphocytes # (0.90-5.00) X 10*3/uL Eosinophils # (0.04-0.35) X 10*3/uL NRBC/100 WBC Diff (0.00-0.01) X 10*3/uL Anion Gap (4.00-12.00) mmol/L BUN (9.0-27.0) mg/dL Creatinine (0.6-1.5) mg/dL BUN/Creatinine Ratio (12.00-20.00) Ratio AST (13-35) U/L Alkaline Phosphatase (41-126) U/L C-Reactive Protein (0.00-0.80) mg/dL Total Protein (6.2-8.2) g/dL Albumin (3.8-4.9) g/dL Globulin (1.6-3.3) g/dL Albumin/Globulin Ratio (1.60-3.17) Ratio Methylmalonic Acid (<0.40) umol/L Procalcitonin 0.80 H (0.02-0.09) ng/mL Assessment and Plan Assessment: Altered mental status due to metabolic encephalopathy and brain mets with vasogenic edema. Metastatic renal cell carcinoma with mets to lung with heparin subcu and bone. Currently not on immunotherapy Normocytic normochromic anemia, neutrophilic leukocytosis and thrombocytosis likely due to metastatic malignancy. Hypovolemic hyponatremia Hyperglycemia Hypertension Morbid obesity with BMI 39.40 Prior history of smoking Stage III sacral decub ulcers DVT prophylaxis with Lovenox subcu Plan: Patient will be continued on gentle IV hydration. Encourage oral intake. Transfuse PRBC to keep hemoglobin greater than 7. Continue with insulin regimen and sliding scale and metformin. Patient will be continued on antibiotics cefepime for possible pneumonia. Procalcitonin level report pending. Follow-up sodium level and monitor H&H. MRI of the brain was done. Due to poor prognosis and recent multiple admissions and underlying metastatic cancer, after further discussion family would like patient to be transferred to hospice care. Time with Patient: Greater than 30
--- NOTE | 2024-01-29 15:26 | P.PN ---
Subjective Progress Note Date: 01/28/24 Principal diagnosis: Reason for follow-up is leukocytosis and a sacral pressure ulcer Patient is a 58-year-old female with multiple comorbidities including diabetes mellitus hypertension CVA TIA, renal cancer, former smoker resident of [facility] patient has been brought into the hospital 5 days ago however the patient was noticed to have a low hemoglobin, patient also noticed to have a sacral pressure ulcer prompting this consultation. On today's evaluation that is 01/29/2024, patient has been afebrile, patient is breathing comfortably and is currently on 2 L nasal cannula oxygen patient is awake but did not answer any question no vomiting diarrhea and the changes reported by the nursing staff. Patient white count is 17.03, creatinine 0.5 Objective - Vital Signs Vital signs: Vital Signs Temp 97.5 F L 01/28/24 02:03 Pulse 84 01/28/24 06:55 Resp 16 01/28/24 06:55 BP 146/70 01/28/24 06:55 Pulse Ox 97 01/28/24 06:55 FiO2 Intake & Output 01/27/24 01/28/24 01/28/24 18:59 06:59 18:59 Output Total 2150 800 400 Balance -2150 -800 -400 Output: Urine 2150 800 400 Other: Voiding Method Indwelling Catheter Indwelling Catheter - Exam GENERAL DESCRIPTION: Middle-aged female lying in bed in no distress RESPIRATORY SYSTEM: Unlabored breathing , decreased breath sounds at bases HEART: S1 S2 regular rate and rhythm , ABDOMEN: Soft , no tenderness Sacral wound was not examined today - Labs CBC & Chem 7: 01/28/24 08:05 01/28/24 08:05 Labs: Abnormal Lab Results - Last 24 Hours (Table) 01/24/24 01/24/24 01/27/24 Range/Units 06:37 12:44 07:25 WBC 18.73 H (4.50-10.00) X 10*3/uL RBC 2.94 L (4.10-5.20) X 10*6/uL Hgb 8.1 L (12.0-15.0) g/dL Hct 26.2 L (37.2-46.3) % MCHC 30.9 L (32.0-37.0) g/dL RDW 18.5 H (11.5-14.5) % Plt Count 595 H (140-440) X 10*3/uL Immature Gran # 0.30 H (0.00-0.04) X 10*3/uL Neutrophils # 16.51 H (1.80-7.70) X 10*3/uL Eosinophils # 0.02 L (0.04-0.35) X 10*3/uL ABG pH (7.35-7.45) ABG pCO2 (35-45) mmHg ABG pO2 (83-108) mmHg ABG HCO3 (21-25) mmol/L Sodium (135-145) mmol/L Potassium (3.5-5.1) mmol/L Chloride (96-109) mmol/L Carbon Dioxide (22-30) mmol/L Anion Gap (4.00-12.00) mmol/L BUN (9.0-27.0) mg/dL BUN/Creatinine Ratio (12.00-20.00) Ratio Glucose (70-110) mg/dL POC Glucose (mg/dL) (70-110) mg/dL Methylmalonic Acid 0.84 H (<0.40) umol/L Procalcitonin 0.64 H (0.02-0.09) ng/mL 01/27/24 01/27/24 01/27/24 Range/Units 07:25 16:59 17:16 WBC (4.50-10.00) X 10*3/uL RBC (4.10-5.20) X 10*6/uL Hgb (12.0-15.0) g/dL Hct (37.2-46.3) % MCHC (32.0-37.0) g/dL RDW (11.5-14.5) % Plt Count (140-440) X 10*3/uL Immature Gran # (0.00-0.04) X 10*3/uL Neutrophils # (1.80-7.70) X 10*3/uL Eosinophils # (0.04-0.35) X 10*3/uL ABG pH (7.35-7.45) ABG pCO2 (35-45) mmHg ABG pO2 (83-108) mmHg ABG HCO3 (21-25) mmol/L Sodium 132 L (135-145) mmol/L Potassium (3.5-5.1) mmol/L Chloride 92 L (96-109) mmol/L Carbon Dioxide (22-30) mmol/L Anion Gap 12.90 H (4.00-12.00) mmol/L BUN 29.2 H (9.0-27.0) mg/dL BUN/Creatinine Ratio 48.67 H (12.00-20.00) Ratio Glucose 141 H (70-110) mg/dL POC Glucose (mg/dL) 64 L 116 H (70-110) mg/dL Methylmalonic Acid (<0.40) umol/L Procalcitonin (0.02-0.09) ng/mL 01/27/24 01/27/24 01/27/24 Range/Units 18:05 18:05 20:38 WBC 16.6 H (4.50-10.00) X 10*3/uL RBC 3.05 L (4.10-5.20) X 10*6/uL Hgb 8.0 L (12.0-15.0) g/dL Hct 28.0 L (37.2-46.3) % MCHC 28.7 L (32.0-37.0) g/dL RDW 17.3 H (11.5-14.5) % Plt Count 612 H (140-440) X 10*3/uL Immature Gran # (0.00-0.04) X 10*3/uL Neutrophils # (1.80-7.70) X 10*3/uL Eosinophils # (0.04-0.35) X 10*3/uL ABG pH 7.47 H (7.35-7.45) ABG pCO2 46 H (35-45) mmHg ABG pO2 69 L (83-108) mmHg ABG HCO3 33 H (21-25) mmol/L Sodium 132 L (135-145) mmol/L Potassium 3.1 L (3.5-5.1) mmol/L Chloride 96 L (96-109) mmol/L Carbon Dioxide 32 H (22-30) mmol/L Anion Gap (4.00-12.00) mmol/L BUN 28 H (9.0-27.0) mg/dL BUN/Creatinine Ratio (12.00-20.00) Ratio Glucose (70-110) mg/dL POC Glucose (mg/dL) (70-110) mg/dL Methylmalonic Acid (<0.40) umol/L Procalcitonin (0.02-0.09) ng/mL Assessment and Plan (1) Stage III pressure ulcer of sacral region Current Visit: Yes Status: Acute Code(s): L89.153 - PRESSURE ULCER OF SACRAL REGION, STAGE 3 SNOMED Code(s): 73215219111161 (2) Leukocytosis Current Visit: Yes Status: Acute Code(s): D72.829 - ELEVATED WHITE BLOOD CELL COUNT, UNSPECIFIED SNOMED Code(s): 348552427 Plan: 1patient with a stage III sacral pressure ulcer which has been there chronic for this patient wound base did have some slough tissue but no surrounding redness current hospital drainage clinically behaving as infected sacral pressure ulcer 2-patient did have elevated white count questionably due to her metastatic renal cancer as the patient not running any fever develop toxic 3-local wound care to the sacral wound with the Medihoney followed by moist dressing and frequent change of the position 4-with a plan for possible hospice I will hold on adding any further workup at this point Family the bedside questions were answered Dictation was produced using [employer] dictation software. please excuse any grammatical, word or spelling errors. Time with Patient: Less than 30
--- NOTE | 2024-01-29 19:35 | P.PN ---
Progress Note - Text Progress Note Date: 01/29/24 Patient is a 58-year-old female with a known history of metastatic renal cell carcinoma with mets to the lungs and bones, currently not on any immunotherapy, history of CVA/TIA, morbid obesity, hypertension and a prior history of smoking was sent from [facility] due to uremia and generalized weakness. Patient was previously admitted to [facility], requiring PRBC transfusion. Patient was previously on follow-up with Dr. Singh. Denies any hematemesis or melena. No complaints of chest pain. Patient does have shortness of breath at baseline.. No cough or sputum production. Denies any dysuria or hematuria. Patient usually wears oxygen at home. Patient is mainly bedridden due to morbid obesity and functional quadriplegia. Chest x-ray showed multiple masses are seen scattered throughout the lungs. New from prior 02/13/2022. Findings concerning for metastatic disease. EKG showed sinus tachycardia CT chest showed progression of metastatic disease increases in size and number of pulmonary nodules. Cholelithiasis. Laboratory data showed WBC 18.1 hemoglobin 7.1 and dropped down to 6.4 platelets 1057 Sodium 125 potassium 5.0 chloride 88 bicarb is 30 BUN 31 and creatinine 0.51 and blood sugar 205 calcium 8.3 AST 71 ALT 32 alk phos 398 and albumin 2.3 Urinalysis showed moderate leukocyte esterase with WBC count 4 Influenza A B RSV and COVID-19 PCR not detected. 01/25/2024 Patient is lying in the bed. Awake alert and oriented. No complaints of chest pain or shortness. Currently requiring 2 L oxygen via nasal cannula. Pain is fairly controlled. No headache or dizziness or lightheadedness. Laboratory data showed WBC still elevated at 19.6 hemoglobin 6.8 and is being transfused with 1 unit of PRBC today, platelets 720 sodium 131 potassium 4.0 chloride 89 bicarb is 29.9 BUN 24.9 and creatinine 0.6 and blood sugar 133 and calcium 6.7 alk phos 382 Patient remains on cefepime. Procalcitonin level is pending. 01/26/2024 Patient is resting in the bed. Awake alert and oriented. Currently on 2 L via nasal cannula. No cough or sputum production. Denies any chest pain or shortness of breath. Patient remains on antibiotics and home surgery team. Procalcitonin pending. Patient has been afebrile. Laboratory data showed WBC 18.4 hemoglobin 8.3 and platelets 660. Anticipate discharge back to [facility] in the next 24 hours. 01/27/2024 Patient is lying in the bed. Seems to be lethargic today. No complaints of chest pain or shortness of breath. Patient does have sacral stage III decub ulcers. Wound care was consulted. Patient has been febrile. No nausea or vomiting. Minimal oral intake. Otherwise continued on cefepime for possible pneumonia. ID was consulted for evaluation. Laboratory data WBC 16.6 hemoglobin 8.0 and platelets 612, sodium 132 potassium 3.1 chloride 96 bicarb is 32 BUN to 28 and creatinine 0.6 and calcium 8.9. 01/28/2024 Patient is lethargic but able to open her eyes. Requiring oxygen at 2 L via nasal cannula. Afebrile. Overnight due to altered mental status ABGs was done showed pH 7.47 pCO2 46 and pO2 69. Patient had MRI of the brain showed vasogenic edema in the left peritoneal region of unknown etiology further evaluation MRI was recommended. Chest x-ray last night showed metastatic disease throughout the lungs and this limits evaluation for airspace disease. Laboratory data showed WBC 17.3 hemoglobin 8.4 and platelets 553 sodium 138 potassium 4.2 chloride 98 bicarb is 26.9 BUN 27.9 and creatinine 0.5 and blood sugar 91 CRP 25.1 and procalcitonin level 0.8. Patient remains on cefepime. ID and oncology is on board. January 29, 2024: Comfort measures. On morphine drip. Scopolamine patch. Family at bedside. Patient appears comfortable. Active Medications Acetaminophen (Acetaminophen Tab 325 Mg Tab) 650 mg PO Q6H PRN PRN Reason: Fever and/ or Pain Last Admin: 01/27/24 08:16 Dose: 650 mg Acetaminophen (Acetaminophen Suppository 650 Mg Supp) 650 mg RECTAL Q4HR PRN PRN Reason: Fever and/or Mild Pain Hydrocodone Bitart/Acetaminophen (Hydrocodone/Apap 7.5-325mg 1 Each Tab) 1 each PO Q6HR PRN PRN Reason: Pain Atropine Sulfate (Atropine Ophth Soln 1% 5ml Btl) 2 drops SUBLINGUAL Q4HR PRN PRN Reason: Excess Secretions Dextrose/Water (Dextrose 50% Syringe 50 Ml) 25 ml IVP PER PROTOCOL PRN; Protocol PRN Reason: Hypoglycemia Last Admin: 01/27/24 17:04 Dose: 25 ml Dextrose/Water (Dextrose 50% Syringe 50 Ml) 50 ml IVP PER PROTOCOL PRN; Protocol PRN Reason: Hypoglycemia Hydromorphone HCl (Hydromorphone 1 Mg/Ml 1 Ml Syringe) 1 mg IVP Q2HR PRN PRN Reason: Moderate Pain (Scale 4 to 6) Morphine Sulfate 100 mg/ (Sodium Chloride) 102 mls @ 1.02 mls/hr IV .Q24H CAT; Protocol Last Admin: 01/29/24 14:22 Dose: 2.94 mg/hr, 3 mls/hr Lorazepam (Lorazepam 1 Mg/0.5 Ml Vial) 1 mg IV Q6HR PRN PRN Reason: Anxiety Naloxone HCl (Naloxone 0.4 Mg/Ml 1 Ml Vial) 0.2 mg IV Q2M PRN PRN Reason: Opioid Reversal Ondansetron HCl (Ondansetron 4 Mg/2 Ml Vial) 4 mg IVP Q8HR PRN PRN Reason: Nausea And Vomiting Saliva Substitute (Dry Mouth [place] 44.3 [place]/44.3 Ml [place]) 1 spray MUCOUS MEM QID PRN PRN Reason: Dry Mouth Last Admin: 01/28/24 03:39 Dose: 1 spray Scopolamine (Scopolamine 1 Mg/72 Hr Patch) 1 patch TRANSDERM Q72H PRN PRN Reason: excess secretions On examination: VITAL SIGNS: [97.5, 84, 16, 146 x 70, 97% on 2 L] GENERAL APPEARANCE: In bed, not breathing. Occasional shallow breathing RESPIRATORY: Respiratory effort normal. Lungs creased breath sounds. CARDIOVASCULAR: First and second sounds normal. No edema. ABDOMEN: Soft. No tenderness. PSYCHIATRY: Lethargic Assessment: Acute metabolic encephalopathy and brain mets with vasogenic edema. Metastatic renal cell carcinoma with mets to lung with heparin subcu and bone. Previously on immunotherapy Normocytic normochromic anemia, neutrophilic leukocytosis and thrombocytosis likely due to metastatic malignancy. Hypovolemic hyponatremia Hyperglycemia Hypertension Stage III sacral decub ulcers Continue comfort measures
[2024-01-30] MEDS: ATROPINE OPHTH SOLN 1% 5ML BTL SUBLINGUAL PRN (00:58)
[2024-01-30 02:54] VITALS: RESP 9
[2024-01-30] MEDS: SCOPOLAMINE 1 MG/72 HR PATCH TRANSDERM PRN (05:38)
--- NOTE | 2024-01-30 09:56 | P.DS ---
Providers Date of admission: 01/23/24 21:18 Expected date of discharge: 01/30/24 (Patient ) Attending physician: Gurdeep Moreira Consults: 01/23/24 19:18 Consult Physician Urgent Consulting Provider: Sanford Perez Consult Reason/Comments: metastic disease Do you want consulting provider notified?: Yes 01/27/24 09:19 Consult Physician Routine Consulting Provider: Andrés Copeland Consult Reason/Comments: wound care Do you want consulting provider notified?: Yes Primary care physician: [facility] Course: Patient is a 58-year-old female with a known history of metastatic renal cell carcinoma with mets to the lungs and bones, currently not on any immunotherapy, history of CVA/TIA, morbid obesity, hypertension and a prior history of smoking was sent from [facility] due to uremia and generalized weakness. Patient was previously admitted to [facility], [place], requiring PRBC transfusion. Patient was previously on follow-up with Dr. Singh. Denies any hematemesis or melena. No complaints of chest pain. Patient does have shortness of breath at baseline.. No cough or sputum production. Denies any dysuria or hematuria. Patient usually wears oxygen at home. Patient is mainly bedridden due to morbid obesity and functional quadriplegia. Chest x-ray showed multiple masses are seen scattered throughout the lungs. New from prior 02/13/2022. Findings concerning for metastatic disease. EKG showed sinus tachycardia CT chest showed progression of metastatic disease increases in size and number of pulmonary nodules. Cholelithiasis. Laboratory data showed WBC 18.1 hemoglobin 7.1 and dropped down to 6.4 platelets 1057 Sodium 125 potassium 5.0 chloride 88 bicarb is 30 BUN 31 and creatinine 0.51 and blood sugar 205 calcium 8.3 AST 71 ALT 32 alk phos 398 and albumin 2.3 Urinalysis showed moderate leukocyte esterase with WBC count 4 Influenza A B RSV and COVID-19 PCR not detected. 01/25/2024 Patient is lying in the bed. Awake alert and oriented. No complaints of chest pain or shortness. Currently requiring 2 L oxygen via nasal cannula. Pain is fairly controlled. No headache or dizziness or lightheadedness. Laboratory data showed WBC still elevated at 19.6 hemoglobin 6.8 and is being transfused with 1 unit of PRBC today, platelets 720 sodium 131 potassium 4.0 chloride 89 bicarb is 29.9 BUN 24.9 and creatinine 0.6 and blood sugar 133 and calcium 6.7 alk phos 382 Patient remains on cefepime. Procalcitonin level is pending. 01/26/2024 Patient is resting in the bed. Awake alert and oriented. Currently on 2 L via nasal cannula. No cough or sputum production. Denies any chest pain or shortness of breath. Patient remains on antibiotics and home surgery team. Procalcitonin pending. Patient has been afebrile. Laboratory data showed WBC 18.4 hemoglobin 8.3 and platelets 660. Anticipate discharge back to [facility] in the next 24 hours. 01/27/2024 Patient is lying in the bed. Seems to be lethargic today. No complaints of chest pain or shortness of breath. Patient does have sacral stage III decub ulcers. Wound care was consulted. Patient has been febrile. No nausea or vomiting. Minimal oral intake. Otherwise continued on cefepime for possible pneumonia. ID was consulted for evaluation. Laboratory data WBC 16.6 hemoglobin 8.0 and platelets 612, sodium 132 potassium 3.1 chloride 96 bicarb is 32 BUN to 28 and creatinine 0.6 and calcium 8.9. 01/28/2024 Patient is lethargic but able to open her eyes. Requiring oxygen at 2 L via nasal cannula. Afebrile. Overnight due to altered mental status ABGs was done showed pH 7.47 pCO2 46 and pO2 69. Patient had MRI of the brain showed vasogenic edema in the left peritoneal region of unknown etiology further evaluation MRI was recommended. Chest x-ray last night showed metastatic disease throughout the lungs and this limits evaluation for airspace disease. Laboratory data showed WBC 17.3 hemoglobin 8.4 and platelets 553 sodium 138 potassium 4.2 chloride 98 bicarb is 26.9 BUN 27.9 and creatinine 0.5 and blood sugar 91 CRP 25.1 and procalcitonin level 0.8. Patient remains on cefepime. ID and oncology is on board. January 29, 2024: Comfort measures. On morphine drip. Scopolamine patch. Family at bedside. Patient appears comfortable. January 30, 2024: Patient Cause of : Metastatic renal cell carcinoma Assessment: Acute metabolic encephalopathy and brain mets with vasogenic edema. Metastatic renal cell carcinoma with mets to lung with heparin subcu and bone. Previously on immunotherapy Normocytic normochromic anemia, neutrophilic leukocytosis and thrombocytosis likely due to metastatic malignancy. Hypovolemic hyponatremia Hyperglycemia Hypertension Stage III sacral decub ulcers Continue comfort measures Plan - Discharge Summary New Discharge Prescriptions: No Action Aspirin 81 mg PO DAILY #30 chewable Spironolactone [Aldactone] 25 mg PO DAILY polyethylene glycoL 3350 [Miralax] 17 gm PO DAILY PRN PRN Reason: Constipation metFORMIN HCL [Glucophage] 500 mg PO BID Sodium Chloride [Saline Mist] 1 spray EA NOSTRIL BID Pantoprazole [Protonix] 40 mg PO DAILY Magnesium Oxide [Mag-Ox] 400 mg PO BID Empagliflozin [Jardiance] 10 mg PO DAILY HYDROcodone/APAP 7.5-325MG [[place] 7.5-325] 1 tab PO Q4H PRN PRN Reason: Pain Gabapentin [Neurontin] 300 mg PO BID Cyanocobalamin (Vitamin B-12) [Vitamin B-12] 1,000 mcg PO DAILY Multivitamins, Thera [Multivitamin (formulary)] 1 tab PO DAILY Sennosides [Senokot] 8.6 mg PO BID PRN PRN Reason: Constipation Insulin Lispro [Admelog Solostar] See Protocol SQ ACHS Insulin Glargine,Hum.rec.anlog [Insulin Glargine] 30 units SQ DAILY hydrALAZINE HCL [Apresoline] 50 mg PO TID Furosemide [Lasix] 40 mg PO BID Losartan [Cozaar] 25 mg PO DAILY Acetaminophen [Tylenol] 650 mg PO Q6H PRN PRN Reason: Fever And/ Or Pain Discharge Medication List Aspirin 81 mg PO DAILY #30 chewable 08/27/15 [Rx] Multivitamins, Thera [Multivitamin (formulary)] 1 tab PO DAILY 02/11/22 [History] Acetaminophen [Tylenol] 650 mg PO Q6H PRN 01/23/24 [History] Cyanocobalamin (Vitamin B-12) [Vitamin B-12] 1,000 mcg PO DAILY 01/23/24 [History] Empagliflozin [Jardiance] 10 mg PO DAILY 01/23/24 [History] Furosemide [Lasix] 40 mg PO BID 01/23/24 [History] Gabapentin [Neurontin] 300 mg PO BID 01/23/24 [History] HYDROcodone/APAP 7.5-325MG [[place] 7.5-325] 1 tab PO Q4H PRN 01/23/24 [History] Insulin Glargine,Hum.rec.anlog [Insulin Glargine] 30 units SQ DAILY 01/23/24 [History] Insulin Lispro [Admelog Solostar] See Protocol SQ ACHS 01/23/24 [History] Losartan [Cozaar] 25 mg PO DAILY 01/23/24 [History] Magnesium Oxide [Mag-Ox] 400 mg PO BID 01/23/24 [History] Pantoprazole [Protonix] 40 mg PO DAILY 01/23/24 [History] Sennosides [Senokot] 8.6 mg PO BID PRN 01/23/24 [History] Sodium Chloride [Saline Mist] 1 spray EA NOSTRIL BID 01/23/24 [History] Spironolactone [Aldactone] 25 mg PO DAILY 01/23/24 [History] hydrALAZINE HCL [Apresoline] 50 mg PO TID 01/23/24 [History] metFORMIN HCL [Glucophage] 500 mg PO BID 01/23/24 [History] polyethylene glycoL 3350 [Miralax] 17 gm PO DAILY PRN 01/23/24 [History] Follow up Appointment(s)/Referral(s): Erickson Ruiz DO [Primary Care Provider] - 1-2 days
--- NOTE | 2024-02-12 12:30 | CDI ---
Documentation Clarification Form Date: 02/12/2024 12:16:39 PM From: Alma Moss RN, CCDS Phone: [phone] Admit Date: 01/23/2024 09:18:00 PM Patient Name: Candi Stafford Visit Number: [id number] Discharge Date: 01/30/2024 11:45:00 AM ATTENTION: The Clinical Documentation Specialists (CDI) and [facility] Coding Staff appreciate your assistance in clarifying documentation. Please respond to the clarification below the line at the bottom and electronically sign. The CDI & [facility] Coding staff will review the response and follow-up if needed. Please note: Queries are made part of the Legal Health Record. If you have any questions, please contact the author of this message via ITS. Dr. Phoebe Berger The patient wore home oxygen and required O2 2LNC during admission. Based on this information and the findings below, is there an additional diagnosis that is clinically appropriate for this patient? History/Risk Factors: metastatic renal cell carcinoma with mets to the lungs and bones, currently not on any immunotherapy, CVA/TIA, morbid obesity, hypertension and a prior history of smoking. Presented with low Hgb. Home oxygen: yes Clinical Indicators: 01/23 H&P: "Patient usually wears oxygen at home." 01/24 IM: "Currently requiring 2 L oxygen via nasal cannula." Vital signs: RR 6-22 Pulse oximetry: 92-97% 01/27 Lung/Breathing assessment: decreased breath sounds at bases 01/26 ABG: pH 7.47 pO2 69 pCO2 46 Treatment: O2: 2-3LNC Is there an additional diagnosis that is clinically appropriate for this patient? [ x ] Chronic Respiratory Failure [ ] No additional diagnosis/not clinically significant [ ] Other Diagnosis, please specify [ ] Unable to determine MTDD
== END 2024-01-30 11:45 | disposition expired | DRG 461 ==
LOC: EC 14:10 → 5NMEDONC 21:17 → OBSVTOIN 21:18 → 5NMEDONC 22:28
PROVIDERS: ADMIT Hospitalist; ATTEND Hospitalist
PROC: 30233N1 Transfusion of Nonautologous Red Blood Cells into Peripheral Vein, Percutaneous Approach (ICD-10-PCS; principal; 2024-01-23)
DX: C64.9 Malignant neoplasm of unspecified kidney, except renal pelvis (principal); C78.00 Secondary malignant neoplasm of unspecified lung; C79.31 Secondary malignant neoplasm of brain; C79.51 Secondary malignant neoplasm of bone; G93.6 Cerebral edema; R53.2 Functional quadriplegia; G93.41 Metabolic encephalopathy; I10 Essential (primary) hypertension; E66.01 Morbid (severe) obesity due to excess calories; L89.153 Pressure ulcer of sacral region, stage 3; E11.65 Type 2 diabetes mellitus with hyperglycemia; Z68.39 Body mass index [BMI] 39.0-39.9, adult; Z51.5 Encounter for palliative care; Z66 Do not resuscitate; D64.89 Other specified anemias; D72.828 Other elevated white blood cell count; K80.20 Calculus of gallbladder without cholecystitis without obstruction; Z79.4 Long term (current) use of insulin; E86.1 Hypovolemia; E87.1 Hypo-osmolality and hyponatremia; F41.9 Anxiety disorder, unspecified; J18.9 Pneumonia, unspecified organism; J96.10 Chronic respiratory failure, unspecified whether with hypoxia or hypercapnia; D75.838 Other thrombocytosis; Z99.81 Dependence on supplemental oxygen; R74.01 Elevation of levels of liver transaminase levels; I25.2 Old myocardial infarction; Z87.891 Personal history of nicotine dependence; Z11.52 Encounter for screening for COVID-19; Z74.01 Bed confinement status; Z79.82 Long term (current) use of aspirin; Z79.84 Long term (current) use of oral hypoglycemic drugs; Z79.899 Other long term (current) drug therapy; Z86.73 Personal history of transient ischemic attack (TIA), and cerebral infarction without residual deficits; Z88.6 Allergy status to analgesic agent
CPT/HCPCS: 36415; 36430; 36600; 70450; 70553; 71045; 71046; 71260; 80048; 80053; 81001; 82525; 82607; 82728; 82746; 82805; 83010; 83036; 83540; 83550; 83605; 83735; 83921; 84145; 85025; 85027; 86140; 86850; 86900; 86901; 86920; 87040; 87636; 93005; 96374; 99285